=== PATIENT | female | born 1945 | race Caucasian/White ===

== ENCOUNTER 2020-01-02 08:21 | Outpatient (REF) | payer MEDICARE, SELFPAY ==
[2020-01-02 11:47] LABS: Alanine Aminotransferase 14 U/L (0-31); Albumin Level 4.1 g/dL (3.5-5.0); Alkaline Phosphatase 74 U/L (39-117); Anion Gap 13 (12-20); Aspartate Amino Transferase 12 U/L (5-31); Bilirubin Total 0.9 mg/dL (0.0-1.0); Blood Urea Nitrogen 21 mg/dL (9-16); Calcium 9.1 mg/dL (8.4-10.2); Carbon Dioxide 28 mmol/L (22-29); Chloride 106 mmol/L (96-108); Cholesterol 127 mg/dL; Estimated Glomerular Filt Rate > 60; Glucose Fasting 150 mg/dL (60-99); HDL Cholesterol 43 mg/dL; LDL Cholesterol Calculated 56 mg/dl; Potassium 3.9 mmol/l (3.3-5.1); Sodium 143 mmol/L (135-145); Total Protein 6.5 g/dL (6.5-8.0); Triglycerides 141 mg/dL
[2020-01-02 11:50] LABS: Estimated Average Glucose 163 mg/dL; Hemoglobin A1c % 7.3 %
[2020-01-02 13:39] LABS: Creatinine Urine 91.03 mg/dL
== END 2020-01-02 08:22 | disposition home or self-care (01) ==
LOC: HO.MANLR 08:21
PROVIDERS: PCP Internal Medicine; Visit Provider Internal Medicine
DX: E11.9 Type 2 diabetes mellitus without complications (principal); I10 Essential (primary) hypertension
CPT/HCPCS: 80053; 80061; 82043; 83036

== ENCOUNTER 2020-04-02 11:44 | Outpatient (REF) | payer MEDICARE, SELFPAY ==
[2020-04-02 13:54] LABS: Estimated Average Glucose 126 mg/dL
== END 2020-04-02 11:45 | disposition home or self-care (01) ==
LOC: HO.MANLR 11:44
PROVIDERS: PCP Internal Medicine; Visit Provider Internal Medicine
DX: E11.9 Type 2 diabetes mellitus without complications (principal); I10 Essential (primary) hypertension
CPT/HCPCS: 36415; 83036

== ENCOUNTER 2020-07-13 09:18 | Outpatient (REF) | payer MEDICARE, SELFPAY ==
[2020-07-13 11:51] LABS: Estimated Average Glucose 137 mg/dL; Hemoglobin A1c % 6.4 %
[2020-07-13 12:01] LABS: Alanine Aminotransferase 20 U/L (0-31); Alkaline Phosphatase 72 U/L (39-117); Anion Gap 16 (12-20); Aspartate Amino Transferase 20 U/L (5-31); Bilirubin Total 1.2 mg/dL (0.0-1.0); Blood Urea Nitrogen 30 mg/dL (9-16); Calcium 9.3 mg/dL (8.4-10.2); Carbon Dioxide 27 mmol/L (22-29); Chloride 108 mmol/L (96-108); Cholesterol 111 mg/dL; Estimated Glomerular Filt Rate 25; Glucose Fasting 130 mg/dL (60-99); HDL Cholesterol 38 mg/dL; LDL Cholesterol Calculated 42 mg/dl; Potassium 3.7 mmol/L (3.3-5.1); Sodium 147 mmol/L (135-145); Total Protein 6.7 g/dL (6.5-8.0); Triglycerides 155 mg/dL
[2020-07-13 19:34] LABS: Microalbum/Creatinine Ratio Ur 154.6 ug/mg cr
== END 2020-07-13 09:19 | disposition home or self-care (01) ==
LOC: HO.MANLDS 09:18
PROVIDERS: PCP Internal Medicine; Visit Provider Internal Medicine
DX: E11.9 Type 2 diabetes mellitus without complications (principal); I10 Essential (primary) hypertension
CPT/HCPCS: 36415; 80053; 80061; 82043; 83036

== ENCOUNTER 2020-07-27 08:31 | Outpatient (REF) | payer MEDICARE, SELFPAY ==
[2020-07-27 11:06] LABS: Estimated Average Glucose 137 mg/dL; Hemoglobin A1c % 6.4 %
== END 2020-07-27 08:32 | disposition home or self-care (01) ==
LOC: HO.MANLDS 08:31
PROVIDERS: PCP Internal Medicine; Visit Provider Internal Medicine
DX: E11.9 Type 2 diabetes mellitus without complications (principal); I10 Essential (primary) hypertension
CPT/HCPCS: 36415; 83036

== ENCOUNTER 2020-08-01 14:27 | Outpatient (REF) | payer MEDICARE, SELFPAY ==
[2020-08-01 18:10] LABS: Anion Gap 16 (12-20); Blood Urea Nitrogen 23 mg/dL (9-16); Calcium 9.2 mg/dL (8.4-10.2); Carbon Dioxide 21 mmol/L (22-29); Chloride 111 mmol/L (96-108); Estimated Glomerular Filt Rate 29; Glucose Random 133 mg/dL (60-115); Potassium 3.8 mmol/L (3.3-5.1); Sodium 144 mmol/L (135-145)
== END 2020-08-01 14:28 | disposition home or self-care (01) ==
LOC: HO.MANLDS 14:27
PROVIDERS: PCP Internal Medicine; Visit Provider Internal Medicine
DX: N28.9 Disorder of kidney and ureter, unspecified (principal)
CPT/HCPCS: 36415; 80048

== ENCOUNTER 2020-09-18 10:38 | Outpatient (REF) | payer MEDICARE, SELFPAY | END 2020-09-18 10:39 | disposition home or self-care (01) | LOC: HO.MANLDS 10:38 | PROVIDERS: PCP Internal Medicine; Visit Provider Physician Assistant | DX: R30.9 Painful micturition, unspecified (principal) | CPT/HCPCS: 87086 ==

== ENCOUNTER 2020-10-23 09:35 | Outpatient (REF) | payer MEDICARE, SELFPAY ==
[2020-10-23 11:34] LABS: Estimated Average Glucose 146 mg/dL; Hemoglobin A1c % 6.7 %
== END 2020-10-23 09:36 | disposition home or self-care (01) ==
LOC: HO.MANLDS 09:35
PROVIDERS: PCP Internal Medicine; Visit Provider Internal Medicine
DX: E11.9 Type 2 diabetes mellitus without complications (principal); I10 Essential (primary) hypertension
CPT/HCPCS: 36415; 83036

== ENCOUNTER 2021-01-22 09:32 | Outpatient (REF) | payer MEDICARE, SELFPAY ==
[2021-01-22 11:15] LABS: Estimated Average Glucose 131 mg/dL; Hemoglobin A1c % 6.2 %
[2021-01-22 12:04] LABS: Alanine Aminotransferase 50 U/L (0-31); Albumin Level 3.5 g/dL (3.5-5.0); Alkaline Phosphatase 144 U/L (39-117); Anion Gap 13 (12-20); Aspartate Amino Transferase 59 U/L (5-31); Bilirubin Total 0.9 mg/dL (0.0-1.0); Blood Urea Nitrogen 17 mg/dL (9-16); Calcium 9.3 mg/dL (8.4-10.2); Carbon Dioxide 28 mmol/L (22-29); Chloride 108 mmol/L (96-108); Cholesterol 102 mg/dL; Estimated Glomerular Filt Rate 39; Glucose Fasting 119 mg/dL (60-99); HDL Cholesterol 31 mg/dL; LDL Cholesterol Calculated 46 mg/dl; Potassium 3.4 mmol/L (3.3-5.1); Sodium 146 mmol/L (135-145); Total Protein 6.3 g/dL (6.5-8.0); Triglycerides 125 mg/dL
== END 2021-01-22 09:33 | disposition home or self-care (01) ==
LOC: HO.MANLDS 09:32
PROVIDERS: PCP Internal Medicine; Visit Provider Internal Medicine
DX: E11.65 Type 2 diabetes mellitus with hyperglycemia (principal)
CPT/HCPCS: 36415; 80053; 80061; 82043; 83036

== ENCOUNTER 2021-04-16 09:08 | Outpatient (REF) | payer MEDICARE, SELFPAY ==
[2021-04-16 12:25] LABS: Estimated Average Glucose 114 mg/dL; Hemoglobin A1c % 5.6 %
== END 2021-04-16 09:09 | disposition home or self-care (01) ==
LOC: HO.MANLDS 09:08
PROVIDERS: PCP Internal Medicine; Visit Provider Internal Medicine
DX: E11.65 Type 2 diabetes mellitus with hyperglycemia (principal)
CPT/HCPCS: 36415; 83036

== ENCOUNTER 2021-06-24 08:10 | Outpatient (REF) | payer MEDICARE, SELFPAY ==
[2021-06-24 11:21] LABS: Uric Acid 3.2 mg/dL (2.4-5.7)
== END 2021-06-24 08:11 | disposition home or self-care (01) ==
LOC: HO.MANLDS 08:10
PROVIDERS: PCP Internal Medicine; Visit Provider Physician Assistant
DX: M25.562 Pain in left knee (principal)
CPT/HCPCS: 36415; 84550

== ENCOUNTER 2021-07-16 10:29 | Outpatient (REF) | payer MEDICARE, SELFPAY ==
[2021-07-16 14:01] LABS: Estimated Average Glucose 108 mg/dL; Hemoglobin A1c % 5.4 %
== END 2021-07-16 10:30 | disposition home or self-care (01) ==
LOC: HO.MANLDS 10:29
PROVIDERS: Visit Provider Internal Medicine
DX: E11.65 Type 2 diabetes mellitus with hyperglycemia (principal)
CPT/HCPCS: 36415; 83036

== ENCOUNTER 2021-09-20 12:04 | Outpatient (REF) | payer MEDICARE, SELFPAY ==
[2021-09-20 13:09] LABS: Appearance Urine CLOUDY; Color Urine YELLOW; Glucose Urine UA NEG (NEG); Leukocyte Esterase Urine 3+ (NEG); Nitrite Urine NEG (NEG); Urine Blood 2+ (NEG); Urine Ketones NEG (NEG); Urine Protein TRACE MG/DL (NEG-TRACE)
[2021-09-20 13:26] LABS: Bacteria Urine 1+ /LPF; Squamous Epithelial Cell Urine 1+ /LPF; WBC Urine TNTC /HPF (0-4)
== END 2021-09-20 12:05 | disposition home or self-care (01) ==
LOC: HO.MANLDS 12:04
PROVIDERS: Visit Provider Physician Assistant
DX: R30.0 Dysuria (principal)
CPT/HCPCS: 81001; 81003; 87086

== ENCOUNTER 2021-10-28 10:06 | Outpatient (REF) | payer MEDICARE, SELFPAY ==
[2021-10-28 12:00] LABS: Estimated Average Glucose 114 mg/dL; Hemoglobin A1c % 5.6 %
[2021-10-28 12:18] LABS: Alanine Aminotransferase 40 U/L (0-31); Alkaline Phosphatase 109 U/L (39-117); Anion Gap 18 (12-20); Aspartate Amino Transferase 35 U/L (5-31); Bilirubin Total 0.8 mg/dL (0.0-1.0); Blood Urea Nitrogen 18 mg/dL (9-16); Calcium 9.7 mg/dL (8.4-10.2); Carbon Dioxide 23 mmol/L (22-29); Chloride 106 mmol/L (96-108); Cholesterol 121 mg/dL; Estimated Glomerular Filt Rate 34; Glucose Random 100 mg/dL (60-115); HDL Cholesterol 49 mg/dL; LDL Cholesterol Calculated 53 mg/dl; Potassium 4.5 mmol/L (3.3-5.1); Sodium 142 mmol/L (135-145); Total Protein 7.1 g/dL (6.5-8.0); Triglycerides 95 mg/dL
== END 2021-10-28 10:07 | disposition home or self-care (01) ==
LOC: HO.MANLDS 10:06
PROVIDERS: Visit Provider Internal Medicine
DX: E11.65 Type 2 diabetes mellitus with hyperglycemia (principal)
CPT/HCPCS: 36415; 80053; 80061; 83036

== ENCOUNTER 2021-11-05 11:15 | Outpatient (REF) | payer MEDICARE, SELFPAY ==
[2021-11-05 14:55] LABS: Creatinine Urine 96.83 mg/dL; Microalbum/Creatinine Ratio Ur 48.5 ug/mg cr
== END 2021-11-05 11:16 | disposition home or self-care (01) ==
LOC: HO.MANLDS 11:15
PROVIDERS: Visit Provider Internal Medicine
DX: E11.65 Type 2 diabetes mellitus with hyperglycemia (principal)
CPT/HCPCS: 82043

== ENCOUNTER 2021-11-12 14:58 | Outpatient (REF) | payer MEDICARE, SELFPAY ==
[2021-11-12 18:21] LABS: Creatinine Urine 13.84 mg/dL; Microalbum/Creatinine Ratio Ur 144.5 ug/mg cr
== END 2021-11-12 14:59 | disposition home or self-care (01) ==
LOC: HO.MANLDS 14:58
PROVIDERS: Visit Provider Physician Assistant
DX: E11.65 Type 2 diabetes mellitus with hyperglycemia (principal)
CPT/HCPCS: 82043

== ENCOUNTER 2022-01-21 09:37 | Outpatient (REF) | payer MEDICARE, SELFPAY ==
[2022-01-21 11:31] LABS: Estimated Average Glucose 114 mg/dL; Hemoglobin A1c % 5.6 %
[2022-01-21 13:22] LABS: Alanine Aminotransferase 18 U/L (0-31); Alkaline Phosphatase 115 U/L (39-117); Anion Gap 15 (12-20); Aspartate Amino Transferase 25 U/L (5-31); Bilirubin Total 1.2 mg/dL (0.0-1.0); Blood Urea Nitrogen 26 mg/dL (9-16); Calcium 9.5 mg/dL (8.4-10.2); Carbon Dioxide 26 mmol/L (22-29); Chloride 109 mmol/L (96-108); Cholesterol 119 mg/dL; Estimated Glomerular Filt Rate 40; Glucose Random 103 mg/dL (60-115); HDL Cholesterol 44 mg/dL; LDL Cholesterol Calculated 49 mg/dl; Potassium 4.3 mmol/L (3.3-5.1); Sodium 146 mmol/L (135-145); Total Protein 6.5 g/dL (6.5-8.0); Triglycerides 130 mg/dL
== END 2022-01-21 09:38 | disposition home or self-care (01) ==
LOC: HO.MANLDS 09:37
PROVIDERS: Visit Provider Internal Medicine
DX: E11.65 Type 2 diabetes mellitus with hyperglycemia (principal)
CPT/HCPCS: 36415; 80053; 80061; 83036

== ENCOUNTER 2022-04-29 09:05 | Outpatient (REF) | payer MEDICARE, SELFPAY ==
[2022-04-29 11:56] LABS: Estimated Average Glucose 120 mg/dL; Hemoglobin A1c % 5.8 %
== END 2022-04-29 09:06 | disposition home or self-care (01) ==
LOC: HO.MANLDS 09:05
PROVIDERS: Visit Provider Internal Medicine
DX: E11.65 Type 2 diabetes mellitus with hyperglycemia (principal)
CPT/HCPCS: 36415; 83036

== ENCOUNTER 2022-08-22 09:34 | Outpatient (REF) | payer MEDICARE, SELFPAY ==
[2022-08-22 13:21] LABS: MANUAL DIFF FLAG NO
[2022-08-22 13:40] LABS: Basophils Percent Auto 0.4 % (0-2); Eosinophils Absolute Auto 0.2 X10*3/uL (0.0-0.4); Eosinophils Percent Auto 3.3 % (0-4); Hematocrit 45.6 % (37.0-47.0); Hemoglobin 14.6 g/dl (12.0-16.0); Imm Gran Abs Auto 0.01 X10*3/uL (0.00-0.03); Imm Gran Pct Auto 0.2 % (0.0-0.4); Lymphocytes Percent Auto 19.3 % (20-40); Mean Corpuscular Hemoglobin 30.4 pg (27.0-33.0); Mean Corpuscular Volume 94.8 fL (80.0-98.0); Mean Platelet Volume 10.6 fL (9.4-12.3); Monocytes Absolute Auto 0.6 X10*3/uL (0.1-1.2); Monocytes Percent Auto 10.7 % (2-11); Neutrophils Absolute Auto 3.4 x10*3/uL (2.0-8.3); Neutrophils Percent Auto 66.1 % (45-73); Platelet Count 196 X10*3/uL (160-400); Red Blood Count 4.81 X10*6/uL (4.20-5.50); Red Cell Distribution Width 13.5 % (11.0-16.0); White Blood Count 5.1 X10*3/uL (4.8-10.8)
[2022-08-22 13:50] LABS: Estimated Average Glucose 120 mg/dL; Hemoglobin A1c % 5.8 %
[2022-08-22 14:40] LABS: Alanine Aminotransferase 14 U/L (0-31); Alkaline Phosphatase 92 U/L (39-117); Anion Gap 13 (12-20); Aspartate Amino Transferase 19 U/L (5-31); Bilirubin Total 1.1 mg/dL (0.0-1.0); Blood Urea Nitrogen 27 mg/dL (9-16); Calcium 10.3 mg/dL (8.4-10.2); Carbon Dioxide 28 mmol/L (22-29); Chloride 108 mmol/L (96-108); Cholesterol 191 mg/dL; Estimated Glomerular Filt Rate 39; Glucose Random 122 mg/dL (60-115); HDL Cholesterol 49 mg/dL; LDL Cholesterol Calculated 116 mg/dl; Potassium 4.1 mmol/L (3.3-5.1); Sodium 145 mmol/L (135-145); Total Protein 7.2 g/dL (6.5-8.0); Triglycerides 131 mg/dL
[2022-08-22 15:54] LABS: Creatinine Urine 58.04 mg/dL; Microalbumin Urine < 5.0 mg/L
== END 2022-08-22 09:35 | disposition home or self-care (01) ==
LOC: HO.MANLDS 09:34
PROVIDERS: Visit Provider Physician Assistant
DX: E78.00 Pure hypercholesterolemia, unspecified (principal); R73.01 Impaired fasting glucose
CPT/HCPCS: 36415; 80053; 80061; 82043; 83036; 85025

== ENCOUNTER 2022-11-25 08:40 | Outpatient (REF) | payer MEDICARE, SELFPAY ==
[2022-11-25 13:38] LABS: MANUAL DIFF FLAG NO
[2022-11-25 13:53] LABS: Eosinophils Absolute Auto 0.1 X10*3/uL (0.0-0.4); Eosinophils Percent Auto 3.6 % (0-4); Hematocrit 46.2 % (37.0-47.0); Hemoglobin 15.1 g/dl (12.0-16.0); Imm Gran Abs Auto 0.01 X10*3/uL (0.00-0.03); Imm Gran Pct Auto 0.3 % (0.0-0.4); Lymphocytes Percent Auto 25.8 % (20-40); Mean Corpuscular HGB Conc 32.7 g/dl (31.0-35.0); Mean Corpuscular Hemoglobin 30.6 pg (27.0-33.0); Mean Corpuscular Volume 93.5 fL (80.0-98.0); Mean Platelet Volume 10.2 fL (9.4-12.3); Monocytes Absolute Auto 0.5 X10*3/uL (0.1-1.2); Neutrophils Absolute Auto 2.3 x10*3/uL (2.0-8.3); Neutrophils Percent Auto 57.3 % (45-73); Platelet Count 194 X10*3/uL (160-400); Red Blood Count 4.94 X10*6/uL (4.20-5.50); Red Cell Distribution Width 13.8 % (11.0-16.0); White Blood Count 3.9 X10*3/uL (4.8-10.8)
[2022-11-25 14:00] LABS: Estimated Average Glucose 114 mg/dL; Hemoglobin A1c % 5.6 % (<6.0)
[2022-11-25 14:29] LABS: Alanine Aminotransferase 15 U/L (0-31); Albumin Level 4.1 g/dL (3.5-5.0); Alkaline Phosphatase 87 U/L (39-117); Anion Gap 17 (12-20); Aspartate Amino Transferase 21 U/L (5-31); Bilirubin Total 1.3 mg/dL (0.0-1.0); Blood Urea Nitrogen 21 mg/dL (9-16); Carbon Dioxide 26 mmol/L (22-29); Chloride 108 mmol/L (96-108); Cholesterol 197 mg/dL (<200); Estimated Glomerular Filt Rate 39; Glucose Random 103 mg/dL (60-115); HDL Cholesterol 50 mg/dL (>40); LDL Cholesterol Calculated 119 mg/dL (<100); Potassium 4.2 mmol/L (3.3-5.1); Sodium 147 mmol/L (135-145); Total Protein 7.4 g/dL (6.5-8.0); Triglycerides 140 mg/dL (<150)
== END 2022-11-25 08:41 | disposition home or self-care (01) ==
LOC: HO.MANLDS 08:40
PROVIDERS: Visit Provider Physician Assistant
DX: R73.01 Impaired fasting glucose (principal); E78.00 Pure hypercholesterolemia, unspecified
CPT/HCPCS: 36415; 80053; 80061; 83036; 85025

== ENCOUNTER 2023-02-10 08:23 | Outpatient (REF) | payer MEDICARE, SELFPAY ==
[2023-02-10 13:22] LABS: MANUAL DIFF FLAG NO
[2023-02-10 13:31] LABS: Basophils Percent Auto 0.7 % (0-2); Eosinophils Absolute Auto 0.1 X10*3/uL (0.0-0.4); Eosinophils Percent Auto 3.4 % (0-4); Hematocrit 46.5 % (37.0-47.0); Imm Gran Abs Auto 0.02 X10*3/uL (0.00-0.03); Imm Gran Pct Auto 0.5 % (0.0-0.4); Lymphocytes Absolute Auto 1.2 X10*3/uL (1.2-4.9); Lymphocytes Percent Auto 29.5 % (20-40); Mean Corpuscular HGB Conc 32.3 g/dl (31.0-35.0); Mean Corpuscular Hemoglobin 29.8 pg (27.0-33.0); Mean Corpuscular Volume 92.4 fL (80.0-98.0); Mean Platelet Volume 10.3 fL (9.4-12.3); Monocytes Absolute Auto 0.5 X10*3/uL (0.1-1.2); Monocytes Percent Auto 12.8 % (2-11); Neutrophils Absolute Auto 2.2 x10*3/uL (2.0-8.3); Neutrophils Percent Auto 53.1 % (45-73); Platelet Count 191 X10*3/uL (160-400); Red Blood Count 5.03 X10*6/uL (4.20-5.50); Red Cell Distribution Width 13.2 % (11.0-16.0); White Blood Count 4.1 X10*3/uL (4.8-10.8)
[2023-02-10 13:54] LABS: Alanine Aminotransferase 11 U/L (0-31); Albumin Level 3.8 g/dL (3.5-5.0); Alkaline Phosphatase 77 U/L (39-117); Anion Gap 13 (12-20); Aspartate Amino Transferase 18 U/L (5-31); Bilirubin Total 1.1 mg/dL (0.0-1.0); Blood Urea Nitrogen 19 mg/dL (9-16); Calcium 9.6 mg/dL (8.4-10.2); Carbon Dioxide 27 mmol/L (22-29); Chloride 109 mmol/L (96-108); Cholesterol 174 mg/dL (<200); Estimated Glomerular Filt Rate 39; Glucose Random 115 mg/dL (60-115); HDL Cholesterol 43 mg/dL (>40); LDL Cholesterol Calculated 90 mg/dL (<100); Potassium 4.1 mmol/L (3.3-5.1); Sodium 145 mmol/L (135-145); Total Protein 6.8 g/dL (6.5-8.0); Triglycerides 206 mg/dL (<150)
[2023-02-10 13:59] LABS: Estimated Average Glucose 120 mg/dL; Hemoglobin A1c % 5.8 % (<6.0)
[2023-02-10 14:30] LABS: Creatinine Urine 87.36 mg/dL; Microalbum/Creatinine Ratio Ur 9.1 ug/mg cr (<30)
== END 2023-02-10 08:24 | disposition home or self-care (01) ==
LOC: HO.MANLDS 08:23
PROVIDERS: Visit Provider Physician Assistant
DX: E78.00 Pure hypercholesterolemia, unspecified (principal); R73.01 Impaired fasting glucose
CPT/HCPCS: 36415; 80053; 80061; 82043; 82570; 83036; 85025

== ENCOUNTER 2023-05-08 08:15 | Outpatient (REF) | payer MEDICARE, SELFPAY ==
[2023-05-08 13:17] LABS: MANUAL DIFF FLAG NO
[2023-05-08 13:32] LABS: Estimated Average Glucose 123 mg/dL; Hemoglobin A1c % 5.9 % (<6.0)
[2023-05-08 13:47] LABS: Basophils Percent Auto 0.4 % (0-2); Eosinophils Absolute Auto 0.2 X10*3/uL (0.0-0.4); Eosinophils Percent Auto 3.9 % (0-4); Hematocrit 47.1 % (37.0-47.0); Hemoglobin 15.4 g/dl (12.0-16.0); Imm Gran Abs Auto 0.01 X10*3/uL (0.00-0.03); Imm Gran Pct Auto 0.2 % (0.0-0.4); Lymphocytes Absolute Auto 1.3 X10*3/uL (1.2-4.9); Lymphocytes Percent Auto 29.4 % (20-40); Mean Corpuscular HGB Conc 32.7 g/dl (31.0-35.0); Mean Corpuscular Hemoglobin 30.4 pg (27.0-33.0); Mean Corpuscular Volume 92.9 fL (80.0-98.0); Mean Platelet Volume 10.2 fL (9.4-12.3); Monocytes Absolute Auto 0.5 X10*3/uL (0.1-1.2); Monocytes Percent Auto 11.2 % (2-11); Neutrophils Absolute Auto 2.5 x10*3/uL (2.0-8.3); Neutrophils Percent Auto 54.9 % (45-73); Platelet Count 208 X10*3/uL (160-400); Red Blood Count 5.07 X10*6/uL (4.20-5.50); Red Cell Distribution Width 13.5 % (11.0-16.0); White Blood Count 4.6 X10*3/uL (4.8-10.8)
[2023-05-08 14:27] LABS: Alanine Aminotransferase 11 U/L (0-31); Albumin Level 4.1 g/dL (3.5-5.0); Alkaline Phosphatase 97 U/L (39-117); Anion Gap 14 (12-20); Aspartate Amino Transferase 17 U/L (5-31); Bilirubin Total 0.9 mg/dL (0.0-1.0); Blood Urea Nitrogen 30 mg/dL (9-16); Calcium 9.9 mg/dL (8.4-10.2); Carbon Dioxide 28 mmol/L (22-29); Chloride 107 mmol/L (96-108); Estimated Glomerular Filt Rate 34; Glucose Random 123 mg/dL (60-115); Potassium 4.5 mmol/L (3.3-5.1); Sodium 144 mmol/L (135-145); Total Protein 7.3 g/dL (6.5-8.0)
== END 2023-05-08 08:16 | disposition home or self-care (01) ==
LOC: HO.MANLDS 08:15
PROVIDERS: Visit Provider Physician Assistant
DX: E78.00 Pure hypercholesterolemia, unspecified (principal); R73.01 Impaired fasting glucose
CPT/HCPCS: 36415; 80053; 83036; 85025

== ENCOUNTER 2023-05-18 07:58 | Outpatient (REF) | payer MEDICARE, SELFPAY ==
[2023-05-18 14:24] LABS: Alanine Aminotransferase 11 U/L (0-31); Alkaline Phosphatase 97 U/L (39-117); Anion Gap 13 (12-20); Aspartate Amino Transferase 17 U/L (5-31); Bilirubin Total 0.9 mg/dL (0.0-1.0); Blood Urea Nitrogen 27 mg/dL (9-16); Calcium 9.8 mg/dL (8.4-10.2); Carbon Dioxide 30 mmol/L (22-29); Chloride 105 mmol/L (96-108); Estimated Glomerular Filt Rate 35; Glucose Random 121 mg/dL (60-115); Potassium 4.2 mmol/L (3.3-5.1); Sodium 144 mmol/L (135-145); Total Protein 7.5 g/dL (6.5-8.0)
== END 2023-05-18 07:59 | disposition home or self-care (01) ==
LOC: HO.MANLDS 07:58
PROVIDERS: Visit Provider Physician Assistant
DX: N17.9 Acute kidney failure, unspecified (principal)
CPT/HCPCS: 36415; 80053

== ENCOUNTER 2023-08-25 09:06 | Outpatient (REF) | payer MEDICARE, SELFPAY ==
[2023-08-25 13:01] LABS: MANUAL DIFF FLAG NO
[2023-08-25 13:08] LABS: Basophils Percent Auto 0.4 % (0-2); Eosinophils Absolute Auto 0.1 X10*3/uL (0.0-0.4); Eosinophils Percent Auto 2.7 % (0-4); Hematocrit 46.4 % (37.0-47.0); Hemoglobin 15.3 g/dl (12.0-16.0); Imm Gran Abs Auto 0.02 X10*3/uL (0.00-0.03); Imm Gran Pct Auto 0.4 % (0.0-0.4); Lymphocytes Percent Auto 21.5 % (20-40); Mean Corpuscular Hemoglobin 30.4 pg (27.0-33.0); Mean Corpuscular Volume 92.1 fL (80.0-98.0); Mean Platelet Volume 10.4 fL (9.4-12.3); Monocytes Absolute Auto 0.5 X10*3/uL (0.1-1.2); Neutrophils Absolute Auto 3.1 x10*3/uL (2.0-8.3); Platelet Count 213 X10*3/uL (160-400); Red Blood Count 5.04 X10*6/uL (4.20-5.50); Red Cell Distribution Width 13.9 % (11.0-16.0); White Blood Count 4.8 X10*3/uL (4.8-10.8)
[2023-08-25 13:31] LABS: Estimated Average Glucose 123 mg/dL; Hemoglobin A1c % 5.9 % (<6.0)
[2023-08-25 13:38] LABS: Alanine Aminotransferase 12 U/L (0-31); Albumin Level 4.1 g/dL (3.5-5.0); Alkaline Phosphatase 94 U/L (39-117); Anion Gap 16 (12-20); Aspartate Amino Transferase 18 U/L (5-31); Bilirubin Total 1.2 mg/dL (0.0-1.0); Blood Urea Nitrogen 30 mg/dL (9-16); Calcium 10.2 mg/dL (8.4-10.2); Carbon Dioxide 26 mmol/L (22-29); Chloride 108 mmol/L (96-108); Cholesterol 187 mg/dL (<200); Estimated Glomerular Filt Rate 37; Glucose Random 128 mg/dL (60-115); HDL Cholesterol 43 mg/dL (>40); LDL Cholesterol Calculated 106 mg/dL (<100); Potassium 4.5 mmol/L (3.3-5.1); Sodium 145 mmol/L (135-145); Total Protein 7.4 g/dL (6.5-8.0); Triglycerides 190 mg/dL (<150)
== END 2023-08-25 09:07 | disposition home or self-care (01) ==
LOC: HO.MANLDS 09:06
PROVIDERS: Visit Provider Physician Assistant
DX: R73.01 Impaired fasting glucose (principal); E78.00 Pure hypercholesterolemia, unspecified
CPT/HCPCS: 36415; 80053; 80061; 83036; 85025

== ENCOUNTER 2023-12-01 07:57 | Outpatient (REF) | payer MEDICARE, SELFPAY ==
[2023-12-01 13:11] LABS: MANUAL DIFF FLAG NO
[2023-12-01 13:32] LABS: Basophils Percent Auto 0.6 % (0-2); Eosinophils Absolute Auto 0.2 X10*3/uL (0.0-0.4); Eosinophils Percent Auto 3.7 % (0-4); Hematocrit 46.1 % (37.0-47.0); Hemoglobin 15.1 g/dl (12.0-16.0); Imm Gran Abs Auto 0.02 X10*3/uL (0.00-0.03); Imm Gran Pct Auto 0.4 % (0.0-0.4); Lymphocytes Absolute Auto 1.5 X10*3/uL (1.2-4.9); Mean Corpuscular HGB Conc 32.8 g/dl (31.0-35.0); Mean Corpuscular Hemoglobin 30.8 pg (27.0-33.0); Mean Corpuscular Volume 94.1 fL (80.0-98.0); Mean Platelet Volume 10.3 fL (9.4-12.3); Monocytes Absolute Auto 0.6 X10*3/uL (0.1-1.2); Monocytes Percent Auto 11.7 % (2-11); Neutrophils Absolute Auto 2.6 x10*3/uL (2.0-8.3); Neutrophils Percent Auto 53.6 % (45-73); Platelet Count 198 X10*3/uL (160-400); Red Cell Distribution Width 13.4 % (11.0-16.0); White Blood Count 4.9 X10*3/uL (4.8-10.8)
[2023-12-01 13:51] LABS: Estimated Average Glucose 128 mg/dL; Hemoglobin A1C 246.7287 umol/L; Hemoglobin A1c % 6.1 % (<6.0); Total Hemoglobin (HGBA1C) 5771.8606 umol/L
[2023-12-01 19:30] LABS: Alanine Aminotransferase 15 U/L (0-31); Albumin Level 4.1 g/dL (3.5-5.0); Alkaline Phosphatase 84 U/L (39-117); Anion Gap 15 (12-20); Aspartate Amino Transferase 26 U/L (5-31); Bilirubin Total 0.9 mg/dL (0.0-1.0); Blood Urea Nitrogen 28 mg/dL (9-16); Calcium 10.3 mg/dL (8.4-10.2); Carbon Dioxide 26 mmol/L (22-29); Chloride 108 mmol/L (96-108); Cholesterol 164 mg/dL (<200); Estimated Glomerular Filt Rate 31; Glucose Random 129 mg/dL (60-115); HDL Cholesterol 39 mg/dL (>40); LDL Cholesterol Calculated 93 mg/dL (<100); Potassium 4.6 mmol/L (3.3-5.1); Sodium 144 mmol/L (135-145); Total Protein 7.1 g/dL (6.5-8.0); Triglycerides 163 mg/dL (<150)
== END 2023-12-01 07:58 | disposition home or self-care (01) ==
LOC: HO.MANLDS 07:57
PROVIDERS: Visit Provider Physician Assistant
DX: R73.01 Impaired fasting glucose (principal); E78.00 Pure hypercholesterolemia, unspecified
CPT/HCPCS: 36415; 80053; 80061; 83036; 85025

== ENCOUNTER 2024-04-04 08:46 | Outpatient (REF) | payer MEDICARE, SELFPAY ==
--- OUTSIDE RECORDS SUMMARY | 2024-04-04 09:16 | XMS_ITS | Encounter Summary ---
Author Organization [facility] Address [address] [place] [address] Phone Care Team Providers Care Timber Mill Worker Name Role Phone Nasir Nevarez DO Primary Care Provider Encounter Details Date Type Department Care Team (Late Contact Info) Description 10/07/2023 Documentation Only [facility] [address] [place] [address] Roberta Bull [address] [place] [phone] Social History Tobacco Use Types Packs/Day Years Used Date Smoking Tobacco: Former Cigarettes 1986 Alcohol Use Standard Drinks/Week Comments Yes 1 (1 standard drink = 0.6 oz pur e alcohol) Comments Unknown Sex and Gender Information Value Date Recorded Sex Assigned at Not on file Legal Sex Female 5:04 PM EDT Gender Identity Female 09/26/2020 2:14 PM EDT Sexual Orientation Not on file 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 [address] documented as of this encounter Visit Diagnoses Not on filedocumented in this encounter Care Teams Timber Mill Worker Relationship Specialty Start Date End Date Nasir Nevarez DO [address] [place] [address] PCP - General Internal Medicine 08/06/20 documented as of this encounter
--- OUTSIDE RECORDS SUMMARY | 2024-04-04 09:16 | XMS_ITS | Encounter Summary ---
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 [address] documented as of this encounter Visit Diagnoses Not on filedocumented in this encounter Care Teams Junior Underwriter Relationship Specialty Start Date End Date Nasir Nevarez DO [address] [place] [address] PCP - General Internal Medicine 08/06/20 documented as of this encounter
--- OUTSIDE RECORDS SUMMARY | 2024-04-04 09:16 | XMS_ITS | Encounter Summary ---
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 [address] documented as of this encounter Visit Diagnoses Not on filedocumented in this encounter Care Teams Roads Superintendent Relationship Specialty Start Date End Date Nasir Nevarez DO [address] [place] [address] PCP - General Internal Medicine 08/06/20 documented as of this encounter
--- OUTSIDE RECORDS SUMMARY | 2024-04-04 09:16 | XMS_ITS | Encounter Summary ---
Author Organization [facility] [place], Address [address] [place] [address] Phone Care Team Providers Care Erp Business Analyst Name Role Phone Nasir Nevarez DO Primary Care Provider [phone] Encounter Details Date Type Department Care Team (Late Contact Info) Description 09/30/2022 Documentation Only [facility] [address] [place] [address] Mohit Kennedy MD [address] [place] [address] 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 [address] documented as of this encounter Visit Diagnoses Not on filedocumented in this encounter Care Teams Erp Business Analyst Relationship Specialty Start Date End Date Nasir Nevarez DO [address] [facility] [place] [address] PCP - General Internal Medicine 08/06/20 documented as of this encounter
--- OUTSIDE RECORDS SUMMARY | 2024-04-04 09:16 | XMS_ITS | Encounter Summary ---
Author Organization [facility] [place], Address [address] [place] [address] Phone Care Team Providers Care Quality Control Systems Manager Name Role Phone Nasir Nevarez DO Primary Care Provider [phone] Encounter Details Date Type Department Care Team (Late Contact Info) Description 09/29/2022 Documentation Only [facility] [address] [place] [address] Mohit Kennedy MD [address] [place] [address] 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 [address] documented as of this encounter Visit Diagnoses Not on filedocumented in this encounter Care Teams Quality Control Systems Manager Relationship Specialty Start Date End Date Nasir Nevarez DO [address] [facility] [place] [address] PCP - General Internal Medicine 08/06/20 documented as of this encounter
--- OUTSIDE RECORDS SUMMARY | 2024-04-04 09:16 | XMS_ITS | Encounter Summary ---
Author Organization [facility] [place], Address [address] [place] [address] Phone Care Team Providers Care Geek Squad Autotech Name Role Phone Nasir Nevarez DO Primary Care Provider [phone] Encounter Details Date Type Department Care Team (Late Contact Info) Description 09/29/2022 Documentation Only [facility] [address] [place] [address] Mohit Kennedy MD [address] [place] [address] 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 [address] documented as of this encounter Visit Diagnoses Not on filedocumented in this encounter Care Teams Geek Squad Autotech Relationship Specialty Start Date End Date Nasir Nevarez DO [address] [facility] [place] [address] PCP - General Internal Medicine 08/06/20 documented as of this encounter
--- OUTSIDE RECORDS SUMMARY | 2024-04-04 09:16 | XMS_ITS | Encounter Summary ---
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 [address] documented as of this encounter Visit Diagnoses Not on filedocumented in this encounter Care Teams Halftone Operator Relationship Specialty Start Date End Date Nasir Nevarez DO [address] [place] [address] PCP - General Internal Medicine 08/06/20 documented as of this encounter
--- OUTSIDE RECORDS SUMMARY | 2024-04-04 09:17 | XMS_ITS | Clinical Summary ---
Author Organization [facility] [place], Address [address] [place] [address] Phone Care Team Providers Care Equip Tech Name Role Phone Nasir Nevarez DO Primary Care Provider [phone] Allergies Active Allergy Reactions Criticality Noted Date Comments Colchicine Diarrhea,Nausea And Vomiting Medium 07/26/2021 Prednisone Other (see comments) 09/29/2019 Other reaction(s): Flushing Medications allopurinol (ZYLOPRIM) 100 MG tablet Take 100 mg by mouth daily Active ascorbic acid (VITAMIN C) 500 MG tablet 500 mg Active furosemide (LASIX) 40 MG tablet Take 40 mg by mouth daily 1 Active omeprazole (PriLOSEC) [address] capsule omeprazole 20 mg capsule,delayed release Active rosuvastatin (CRESTOR) 10 MG tablet Take 10 mg by mouth daily Active cholecalciferol (VITAMIN D-3) 25 MCG (1000 UT) tablet Take 1 tablet by mouth daily Active apixaban (ELIQUIS) 5 MG tablet Take 1 tablet by mouth 2 (two) times a day 1 Active oxybutynin XL (DITROPAN-XL) 10 MG 24 hr tablet oxybutynin chloride ER 10 mg tablet,extended release 24 hr Active amiodarone (PACERONE) 100 MG tablet Take 100 mg by mouth in the morning. 3 Active Active Problems Problem Noted Date Diagnosed Date Stage 3b chronic kidney disease 10/10/2022 Renal disorder due to type 2 diabetes mellitus 0 04/18/2022 Vitamin D deficiency 09/12/2021 Diastolic heart failure 12/27/2020 Stage 3a chronic kidney disease 09/27/2020 Paroxysmal atrial fibrillation 11/06/2017 Hypertensive disorder 2017 Overview (09/20/2020): Last Assessment & Plan: continue with her lisinopril and metoprolol] - above goal, stopping IVF may help cont to monitor Type 2 diabetes mellitus 2017 Overview (09/20/2020): Last Assessment & Plan: - blood sugars improved today cont basal bolus insulin Hypercholesterolemia 2017 Immunizations Name Administration Dates Next Due Influenza (IM) Preservative Free 10/18/2019 Influenza Split High Dose Pr eservative Free IM 10/22/2018,12/10/2015 Influenza Vaccine, Quadrival ent, Adjuvanted 03/06/2021 Influenza, Quadrivalent, Wit h Preservative 03/06/2021,10/18/2019,10/22/2018,11/07 Influenza, Trivalent, Adjuvanted 11/07/2017,11/09 Influenza, Unspecified 11/29/2009 Pfizer SARS-COV-2 11/24/2020,,05/19/2020,05/19,04/28/2020,04/28/2020,04/28/2020 Pneumococcal Conjugate 13-Valent 11/21/2016,11/09 Pneumococcal Polysaccharide 02/15/2018,0 02/15/2018,11/14/2012,11/14 Zoster 10/22/2018, 9,08/16/2018,08/16,08/16/2018,11/10/2011,11/10/2011 Family History Medical History Relation Comments Breast cancer Mother Cancer Mother Relation Status Comments Father Mother Social History Tobacco Use Types Packs/Day Years Used Date Smoking Tobacco: Former Cigarettes 1986 Tobacco Cessation:Counseling Given: Not Answered Alcohol Use Standard Drinks/Week Comments Yes 1 (1 standard drink = 0.6 oz pur e alcohol) Comments Unknown Sex and Gender Information Value Date Recorded Sex Assigned at Not on file Legal Sex Female 5:04 PM EDT Gender Identity Female 09/26/2020 2:14 PM EDT Sexual Orientation Not on file 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 [phone] Health Maintenance Due Date Last Done Comments Hepatitis B Vaccine (1 of 3 - Risk 3-dose series) 2003 Diabetes: Hemoglobin A1C 08/08/2020 Diabetes: Ophthalmology Exam 08/08/2020 Diabetes: Pedal Pulse Checked 08/08/2020 Diabetes: Sensory Foot Exam 08/08/2020 Diabetes: Visual Foot Exam 08/08/2020 Influenza Vaccine (#1) 2023 2, 03/06/2021, 10/18/2019, Additional history exists Pneumococcal Vaccine: 65+ Years Completed 02/15/2018, 02/15/2018, 11/21/2016, Additional history exists Insurance Care Teams Equip Tech Relationship Specialty Start Date End Date Nasir Nevarez DO [address] [facility] [place] [address] PCP - General Internal Medicine 08/06/20
--- OUTSIDE RECORDS SUMMARY | 2024-04-04 09:17 | XMS_ITS | Data Portability ---
Author Organization [facility], Home Service Address [address] [place] [address] Assessment Encounter Date Assessment Date Assessment LastModified by Organization Details LastModified Time 09/02/2023 09/02/2023 [address] [place] [address] (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) MDM MODERATE MUST MEET 2 OUT OF 3 ELEMENTS: PROBLEMS, DATA OR RISK ELEMENT 1: PROBLEMS ADDRESSED 1 OR MORE CHRONIC ILLNESS WITH EXACERBATION OR 2 OR MORE STABLE CHRONIC ILLNESSES OR 1 UNDIAGNOSED NEW PROBLEM OR 1 ACUTE ILLNESS W/SYMPTOMS OR 1 ACUTE COMPLICATED INJURY ELEMENT 2: DATA MUST MEET 1 OF 3 CATEGORIES CATEGORY 1: REVIEW OF PRIOR EXTERNAL NOTES, REVIEW OF RESULTS, ORDERING OF EACH TEST, ASSESSMENT REQUIRING INDEPENDENT HISTORIAN OR CATEGORY 2: INDEPENDENT INTERPRETATION OF TESTS BY ANOTHER PHYSICIAN OR SPECIALIST OR CATEGORY 3: DISCUSSION OF MGT OR TEST INTERPRETATION W/EXTERNAL PHYSICIAN OR SPECIALIST ELEMENT 3: RISK RISK OF COMPLICATIONS AND/OR MORBIDITY OR MORTALITY OF PATIENT MANAGEMENT PROVIDER MUST THOROUGHLY DOCUMENT EACH ELEMENT THAT IS COVERED Not available 09/02/2023 11:47:07 03/09/2024 03/09/2024 [address] [place] [address] (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) MDM MODERATE MUST MEET 2 OUT OF 3 ELEMENTS: PROBLEMS, DATA OR RISK ELEMENT 1: PROBLEMS ADDRESSED 1 OR MORE CHRONIC ILLNESS WITH EXACERBATION OR 2 OR MORE STABLE CHRONIC ILLNESSES OR 1 UNDIAGNOSED NEW PROBLEM OR 1 ACUTE ILLNESS W/SYMPTOMS OR 1 ACUTE COMPLICATED INJURY ELEMENT 2: DATA MUST MEET 1 OF 3 CATEGORIES CATEGORY 1: REVIEW OF PRIOR EXTERNAL NOTES, REVIEW OF RESULTS, ORDERING OF EACH TEST, ASSESSMENT REQUIRING INDEPENDENT HISTORIAN OR CATEGORY 2: INDEPENDENT INTERPRETATION OF TESTS BY ANOTHER PHYSICIAN OR SPECIALIST OR CATEGORY 3: DISCUSSION OF MGT OR TEST INTERPRETATION W/EXTERNAL PHYSICIAN OR SPECIALIST ELEMENT 3: RISK RISK OF COMPLICATIONS AND/OR MORBIDITY OR MORTALITY OF PATIENT MANAGEMENT PROVIDER MUST THOROUGHLY DOCUMENT EACH ELEMENT THAT IS COVERED Not available 03/09/2024 11:48:33 Plan of Treatment Reminders Order Date Submit Date Provider Last Modified By Organization Details Last Modified Time Details Appointments FOLLOW UP 15 2024 11:00A M DR SHARP Not available Not available Not available MEDICARE ANNUAL WELLNESS 2024 11:00A M DR SHARP Not available Not available Not available Lab None recorded. Referral None recorded. Procedures None recorded. Surgeries None recorded. Imaging None recorded. Medication Orders celecoxib 200 mg capsule 2023 [facility]/Pharmacy #[id number], [address] [place], [address], 10/13/2023 10:26:57 clotrimaz ole-betam ethasone 1 %-0.05 % topical cream 2023 024 [facility]/Pharmacy #[id number], [address] [place], [address], 09/02/2023 11:49:27 Patient TargetsNo targets recorded. Patient Instructions Encounter Date Encounter Id Patient Instructions Last Modified By Organization Details Last Modified Time 09/02/2023 [id number] prediabetes: car e instructions Not available 09/02/2023 11:47:09 leg and ankle ed marquis: care instructions Not available 09/02/2023 11:47:09 medicines to mackenzie id with kidney disease: care instructions Not available 09/02/2023 11:47:09 12/04/2023 [id number] medicines to mackenzie id with kidney disease: care instructions Not available 12/04/2023 11:45:05 pulse oximetry* Not available 12/04/2023 11:45:05 03/09/2024 [id number] prediabetes: car e instructions Not available 03/09/2024 11:50:12 medicines to mackenzie id with kidney disease: care instructions Not available 03/09/2024 11:50:12 gastroesophageal reflux disease (GERD): care instructions Not available 03/09/2024 11:50:12 Reason for Referral None Reported. Results Created Date Observation Date Name Description Value Unit Range Abnormal Flag Note LastModifiedBy Organization Detail LastModifiedTime 12/04/1912/04/2023 pulse oxime try* Result 98% Not Available [facility] [address], [place], [address], 11/11/2023 15:28:29 10/26/19 24 10/26/2023 MAMMO , scree hardik, digit al, bilat eral No observ ation record ed. [address], [place], [address], 12/04/2023 11:39:28 Result Notes None recorded. Problems Name Problem SNOMED Code Status Onset Date Resolution Date Notes Provider Name and Address Organization Details Recorded Time Paroxysm al atrial fibrilla tion 671229263 Active 2017 Not Available [facility] 2 13:13:32 Ascendin g cholangi tis 19531263 Active 2019 Not Available [facility] 2 13:13:33 Gastroes ophageal reflux disease 812241841 Active 2020 Not Available [facility] 2 13:13:33 Pain of left knee region 1650968862 48057 Active 2021 MATT FLOOD [address] [place], [address], [facility] [place] [facility] 2 16:01:55 Venous stasis ulcer of leg 797752480 Completed 202105/02/2022 Removal Reason: done Nasir Sharp DO [address] [place], [address], [facility] [place] 3 16:39:24 Venous stasis ulcer of leg 739760355 Completed 202105/02/2022 Nasir Sharp DO [address] [place], [address], [facility] [place] [facility] 3 16:39:02 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 050730172 Active 2021 MATT FLOOD [address] [place], [address], [facility] [place] [facility] 2 16:49:21 Pain in limb 46372034 Active 2021 MATT FLOOD [address] [place] [address], [address], [facility] [place] [facility] 2 16:03:29 Acute meniscal tear, medial 001665360 Active 2021 Nasir Sharp DO [address] [place] [address], [address], [facility] 2 14:05:10 Acute meniscal tear, medial 714538443 Active 2021 Nasir Sharp DO [address] [place] [address], [address], [facility] 2 14:05:39 Acute urinary tract infectio n 839945457 Active 2021 MATT FLOOD [address] [place] [address], [address], [facility] 2 10:44:13 Dysuria 32442018 Active 2021 MATT FLOOD [address] [place] [address], [address], [facility] 2 10:44:19 Ulcer of left lower leg 4765733543 9182738 Completed 202105/02/2022 Nasir Sharp DO [address] [place] [address], [address], [facility] 3 16:39:05 Impacted cerumen in left ear 1995913779 082958 Active 2021 MATT FLOOD [address] [place] [address], [address], [facility] 2 10:59:11 Dry cough 90493162 Active 2021 AMTT FLOOD [address] [place] [address], [address], [facility] 2 14:11:41 Acute bronchit is 91911017 Active 2021 MATT FLOOD [address] [place] [address], [address], [facility] 2 14:11:51 Osteoart hritis of right knee joint 1231932303 45262 Active 2021 Nasir Sharp DO [address] [place] [address], [address], [facility] 2 15:00:41 Impaired fasting glycemia 747793127 Active 2022 Nasir Sharp DO [address] [place] [address], [address], [facility] 3 16:36:46 Type 2 diabetes mellitus 83017508 Completed 202205/02/2022 Removal Reason: now IFG Nasir Sharp DO [address] [place] [address], [address], [facility] 3 16:40:00 Derangem ent of medial meniscus of right knee 6685209151 06986 Active 2022 Nasir Sharp DO [address] [place] [address], [address], [facility] [place] 3 11:47:58 Benign paroxysm al position al vertigo 459251091 Active 2022 Nasir Sharp DO [address] [place] [address], [address], [facility] 3 11:53:06 Chronic kidney disease stage 3 955547093 Active 2022 Nasir Sharp DO [address] [place] [address], [address], [facility] [place] [facility] 3 12:02:30 Acute kidney injury 87993179 Active 2023 MATT FLOOD [address] [place] [address], [address], [facility] [facility] 4 14:01:50 Adult nummular atopic dermatit is Active 2023 Nasir Sharp DO [address] [place] [address], [address], [facility] 4 11:47:48 Tinea corporis 57838394 Active 2023 Nasir Sharp DO [address] [place] [address], [address], [facility] 4 11:48:11 Pain of left hip joint 6366349772 Active 2023 MATT FLOOD [address] [place] [address], [address], [facility] 4 10:23:56 Trochant ayla bursitis of left hip 6081102559 58659 Active 2023 MATT FLOOD [address] [place] [address], [address], [facility] [facility] 4 10:24:18 Subclini omid hypothyr oidism 03650993 Active 2024 Nasir Sharp DO [address] [place] [address], [address], [facility] 5 11:49:19 Thyroid stimulat ing hormone level above referenc e range 209551971 Active 2024 Nasir Sharp DO [address] [place] [address], [address], [facility] [place] [facility] 5 11:50:01 Type 2 diabetes mellitus 98250335 Completed 201705/02/2022 Removal Reason: she has been keeping the A1c level in the region for over a year and so she is no longer an active diabetic Nasir Sharp DO [address] [place] [address], [address], [facility] [place] [facility] 3 16:40:00 Carpal tunnel syndrome of right wrist 2130006846 42939 Active 2017 Not Available [facility] 2 13:13:33 Divertic ular disease 280677668 Active 2017 Not Available [facility] 2 13:13:33 Internal hemorrho ids 92099872 Active 2017 Not Available [facility] 2 13:13:33 Hypercho lesterol emia 17460286 Active 2017 Not Available [facility] 2 13:13:33 Osteoart hritis 128528040 Active 2017 C-spine Not Available [facility] 2 13:13:33 Osteoart hritis of knee 405916738 Active 2017 left knee Not Available [facility] 2 13:13:33 Tear of meniscus of knee 655223039 Active 2017 Not Available [facility] 2 13:13:33 Edema of lower extremit y 590337518 Active 2017 Not Available [facility] 2 13:13:33 Hyperten sive disorder 32857891 Active 2017 Not Available [facility] 2 13:13:32 History of appendec vickey 567850205 Active 2017 Not Available [facility] 2 13:13:33 Herpes zoster 1998279 Active 2017 Not Available [facility] 2 13:13:33 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 Please review these documents and add these problems to the patient's chart manually as needed. Problem Notes None recorded. Procedures Surgical History Date Name Laterality Status Provider Name and Address Organization Details Recorded Time 023 Corticosteroid Injection completed Nasir Sharp, DO [address] [place] [address], [place], [address], [facility] [place] [facility] 09/02/2022 11:12:36 022 Corticosteroid Injection completed Nasir Sharp DO [address] [place] [address], [address], [facility] [place] [facility] 01/27/2022 14:55:18 022 Cerumen Removal completed MATT FLOOD [address] [place] [address], [address], [facility] 09/20/2021 10:59:02 022 WOUND CARE completed MATT FLOOD [address] [place] [address], [address], [facility] [place] [facility] 05/29/2021 16:14:50 021 Cerumen Removal completed MATT FLOOD [address] [place] [address], [address], [facility] [place] [facility] 04/10/2020 10:45:02 019 Cerumen Removal completed MELITON Lao [address] [place] [address], [address], [facility] 12/08/2018 11:10:22 018 Colonoscopy completed Tanja Zamarripa [facility] 10/26/2017 08:32:27 Appendectomy completed Nasir fang, [address] [place] [address], [address], [facility] 06/02/2018 08:23:36 Cholecystectomy completed Nasir hayden DO [address] [place] [address], [address], [facility] 06/02/2018 08:23:44 Imaging Results Imaging Date Name Status LastModified by Organiz ation Details LastModified Time 10/26/2023 MAMMO, screening, digital, bilateral completed [address], [address], 12/04/2023 11:39:28 Procedure Notes None recorded. Medical Equipment None Reported. Allergies Allergen ID Allergen Name Allergen Category Reaction Reaction Severity Criticality Documentation Date Start Date Code Code System Note Provider Name and Address Organization Details Recorded Time 3899 prednison e medicatio n flushing Not available Not available 07/15/2019 8640 RxNorm Nasir EppsjamesDO [address] [place], [address], [facility] [place] [facility] 0 11:46:04 5793 colchicin e medicatio n diarrhea moderate Not available 07/15/2021 2683 RxNorm MATT FLOOD [address] [place], [address], [facility] 2 15:14:36 Medications Name Sig Start Date Stop Date Status Note LastModified by Organization Details LastModified Time celecoxib 200 mg capsule TAKE 1 CAPSULE BY MOUTH TWICE A DAY DIRECTED FOR 14 DAYS active Not Available Not Available No t Available furosemid e 40 mg tablet TAKE 1 TABLET EVERY OTHER DAY active Not Available Not Available No t Available silver sulfadiaz ine 1 % topical cream APPLY A 1/16 INCH (1.5 MM) THICK LAYER TO ENTIRE BURN AREA BY TOPICALR OUTE 2 TIMES PER DAY 11/08 completed Not Available Not Available Not Available metformin 500 mg tablet TAKE 1 TABLET TWICE A DAY 04/24 completed Not Available Not Available Not Available prednison e 10 mg tablet take 4 tabs x 2 daystake 3 tabs x 2 daystake 2 tabs x 2 daystake 1 tab x 2 days 11/03 completed Not Available Not Available Not Available nitrofura ntoin macrocrys jay 50 mg capsule Take 1 capsule every 6 hours by oral route. 04/13 completed Not Available Not Available Not Available polyethyl heavenly glycol 3350 17 gram oral powder packet TAKE 17 GRAMS BY MOUTH NEEDED FOR SEVERE CONSTIPA TION 07/20 completed Not Available Not Available Not Available oxybutyni n chloride ER 10 mg tablet,ex tended release 24 hr TAKE 1 TABLET EVERY EVENING active Not Available Not Available No t Available azithromy lashell 250 mg tablet TAKE 2 TABLETS (500 MG) BY ORAL ROUTE ONCE DAILY FOR 1 DAY THEN 1 TABLET (250 MG) BY ORAL ROUTE ONCE DAILY FOR 4 DAYS 05/02 completed Not Available Not Available Not Available amiodaron e 200 mg tablet TAKE 1 TABLET BY MOUTH TWICE DAILY FOR 2 WEEKS THEN DECREASE TO 1 TABLET BY MOUTH EVERY DAY 12/03 completed Not Available Not Available Not Available benzonata te 200 mg capsule TAKE 1 CAPSULE BY MOUTH THREE TIMES DAILY FOR 7 DAYS 05/02 completed Not Available Not Available Not Available metoprolo l succinate ER 50 mg tablet,ex tended release 24 hr Take 1 tablet every day by oral route. 01/25 completed Not Available Not Available Not Available ondansetr on HCl 8 mg tablet TK 1 T PO TID FOR 4 DAYS PRN 07/20 completed Not Available Not Available Not Available phenazopy ridine 200 mg tablet TAKE 1 TABLET BY MOUTH THREE TIMES DAILY FOR 7 DAYS NEEDED 11/08 completed Not Available Not Available Not Available ondansetr on HCl 4 mg tablet Take 2 tablets twice a day by oral route for 3 days. 10/25 completed Not Available Not Available Not Available lovastati n 40 mg tablet TAKE 1 TABLET BY MOUTH DAILY 05/19 completed Not Available Not Available Not Available metoprolo l succinate ER 100 mg tablet,ex tended release 24 hr Take 1 tablet every day by oral route. 01/22 completed Not Available Not Available Not Available diltiazem ER 240 mg capsule,2 4 hr,extend ed release take 1 capsule by mouth once a day 12/06 completed Not Available Not Available Not Available ciproflox acin 250 mg tablet TAKE 1 TABLET BY MOUTH EVERY 12 HOURS FOR 7 DAYS 01/27 completed Not Available Not Available Not Available allopurin ol 100 mg tablet TAKE 1 TABLET DAILY active Not Available Not Available No t Available sulfameth oxazole 800 mg-trimet hoprim 160 mg tablet TAKE 1 TABLET BY MOUTH EVERY 12 HOURS FOR 7 DAYS 11/08 completed Not Available Not Available Not Available tramadol 50 mg tablet TAKE 1 TABLET BY MOUTH EVERY 6 HOURS FOR 7 DAYS 07/15 completed Not Available Not Available Not Available spironola ctone 25 mg tablet Take 1 tablet every day by oral route for 90 days. 07/15 completed Not Available Not Available Not Available ciclopiro x 8 % topical solution for feet 11/08 completed Not Available Not Available Not Available diltiazem 120 mg tablet Take 1 tablet every day by oral route for 90 days. 11/06 completed Not Available Not Available Not Available potassium chloride ER 20 mEq tablet,ex tended release(p art/cryst ) Take 1 tablet every day by oral route for 30 days. 07/20 completed Not Available Not Available Not Available betametha sone valerate 0.1 % topical cream APPLY A THIN LAYER TO THE AFFECTED AREA(S) BY TOPICAL ROUTE ONCE DAILY 11/08 completed Not Available Not Available Not Available baclofen 10 mg tablet Take 1 tablet twice a day by oral route as needed for 7 days. 12/06 completed Not Available Not Available Not Available cephalexi n 500 mg capsule TAKE 1 TABLET BY MOUTH TWICE A DAY WITH FOOD AND WATER FOR 5 DAYS 12/01 completed Not Available Not Available Not Available clotrimaz ole-betam ethasone 1 %-0.05 % topical cream APPLY TO AFFECTED AREA TWICE A DAY FOR 2 WEEKS TOPICALL Y IN THE MORNING AND EVENING active Not Available Not Available No t Available mupirocin calcium 2 % topical cream 06/19 completed Not Available Not Available Not Available omeprazol e 20 mg capsule,d elayed release TAKE 1 CAPSULE DAILY active Not Available Not Available No t Available codeine 10 mg-guaife nesin 100 mg/5 mL oral liquid TAKE 10 ML BY MOUTH EVERY 4 HOURS 01/27 completed Not Available Not Available Not Available Cartia XT 240 mg capsule,e xtended release Take 1 capsule every day by oral route for 30 days. 10/04 completed Not Available Not Available Not Available lisinopri l 5 mg tablet take 1 po qd 07/20 completed Not Available Not Available Not Available furosemid e 20 mg tablet take 1 tablet by mouth once a day 07/12 completed Not Available Not Available Not Available metoprolo l succinate ER 25 mg tablet,ex tended release 24 hr Take 1 tablet every day by oral route. 11/06 completed Not Available Not Available Not Available colchicin e 0.6 mg tablet Take 1 tablet twice a day by oral route for 7 days. 07/15 completed Not Available Not Available Not Available amoxicill in 875 mg-potass ium clavulana te 125 mg tablet 04/06 completed Not Available Not Available Not Available Cartia XT 180 mg capsule,e xtended release Take 1 capsule every day by oral route for 90 days. 11/05 completed Not Available Not Available Not Available tobramyci n 0.3 %-dexamet hasone 0.1 % eye drops,vinita pension 06/19 completed Not Available Not Available Not Available oxycodone 5 mg tablet TAKE 1/2 - 1 TABLETS BY MOUTH EVERY 6 (SIX) HOURS NEEDED. 08/27 completed Not Available Not Available Not Available Laxative (bisacody l) 5 mg tablet,de layed release TAKE 4 TABLETS BY MOUTH NEEDED, PATIENT HAS INSTRUCT IONS active Not Available Not Available No t Available Pneumovax -23 25 mcg/0.5 mL injection syringe 04/13 completed Not Available Not Available Not Available cyclobenz aprine 5 mg tablet TAKE 1 TABLET BY MOUTH 3 TIMES A DAY NEEDED. NOT COVERED 05/12 completed Not Available Not Available Not Available rosuvasta tin 10 mg tablet TAKE 1 TABLET DAILY 05/02 completed Not Available Not Available Not Available amiodaron e 100 mg tablet TAKE 1 TABLET DAILY active Not Available Not Available No t Available Vitamin C once per day 12/03 completed Not Available Not Available Not Available oxybutyni n chloride take 1 tab 25g qd 05/02 completed Not Available Not Available Not Available Vitamin D once per day active Not Available Not Available No t Available multivita min once daily 07/15 completed Not Available Not Available Not Available GaviLyte- G 236 gram-22.7 4 gram-6.74 gram-5.86 gram oral solution 4000 ML ORALLY PT HAS INSTRUCT IONS 2 DAYS 05/12 completed Not Available Not Available Not Available Prevnar 13 (PF) 0.5 mL intramusc ular syringe 08/17 completed Not Available Not Available Not Available Xarelto 20 mg tablet 11/06 completed Not Available Not Available Not Available Accu-Chek FastClix Lancing Device kit 12/06 completed Not Available Not Available Not Available OneTouch Verio test strips USE TO CHECK BLOOD SUGARS TWO TIMES A DAY active Not Available Not Available No t Available Eliquis 5 mg tablet TAKE 1 TABLET BY MOUTH TWICE A DAY active Not Available Not Available No t Available glucosami ne 116 mg-chondr oitin 100 mg-dietar y supplemen t #25 capsule Take by oral route. 07/20 completed Not Available Not Available Not Available Trulicity 0.75 mg/0.5 mL subcutane ous pen injector 08/27 completed 01/27/22 - not currentl y taking Not Available Not Available Not Available Fluad 65yr up(PF)45 mcg(15 mcgx3)/0. 5 mL intramusc ular syringe 08/05 completed Not Available Not Available Not Available Shingrix (PF) 50 mcg/0.5 mL intramusc ular suspensio n, kit 12/06 completed Not Available Not Available Not Available Accu-Chek Fastclix Lancet Drum twice per day 12/05 completed Not Available Not Available Not Available OneTouch Delica Plus Lancet 33 gauge CHECK GLUCOSE DAILY active Not Available Not Available No t Available Fluzone High-Dose 2018- (PF) 180 mcg/0.5 mL intramusc ular syringe 12/06 completed Not Available Not Available Not Available Fluad Quad (65yr up)(PF) 60 mcg (15 mcg x 4)/0.5mL IM syringe 12/05 completed Not Available Not Available Not Available Vitals Date Recorded Body height Body mass index (BMI) Body weight Heart rate Oxygen saturation Oxygen saturation in Arterial blood by Pulse oximetry Systolic blood pressure Diastolic blood pressure Provider Name and Address Organization Details Last Updated DateTime 4 163.83 cm 27 kg/m2 69609.7 8 g 81 /min 99 % 99 % 150 mm[Hg] 70 mm[Hg] Felicitas Beckett [facility] 4 13:50:22 Date Recorded Body height Body mass index (BMI) Body weight Heart rate Oxygen saturation Oxygen saturation in Arterial blood by Pulse oximetry Systolic blood pressure Diastolic blood pressure Provider Name and Address Organization Details Last Updated DateTime 4 163.83 cm 27.2 kg/m2 17533.3 7 g 76 /min 98 % 98 % 140 mm[Hg] 70 mm[Hg] Felicitas Beckett [facility] 4 11:31:59 Date Recorded Body height Body mass index (BMI) Body weight Heart rate Oxygen saturation Oxygen saturation in Arterial blood by Pulse oximetry Systolic blood pressure Diastolic blood pressure Provider Name and Address Organization Details Last Updated DateTime 4 163.83 cm 28.4 kg/m2 15021.6 g 72 /min 98 % 98 % 144 mm[Hg] 80 mm[Hg] Dari Carmona [facility] [facility] 4 10:04:50 Date Recorded Body height Body mass index (BMI) Body weight Heart rate Oxygen saturation Oxygen saturation in Arterial blood by Pulse oximetry Provider Name and Address Organization Details Last Updated DateTime 4 163.83 cm 28.2 kg/m2 63816.2 9 g 66 /min 98 % 98 % Jin Roain [facility] 4 11:19:58 Date Recorded Systolic blood pressure Diastolic blood pressure Provider Name and Address Organization Details Last Updated DateTime 12/04/2023 139 mm[Hg] 80 mm[Hg] Nasir Sharp, DO [address] [place], [address], [facility] 12/04/2023 11:37:57 Date Recorded Body height Body mass index (BMI) Body weight Heart rate Oxygen saturation Oxygen saturation in Arterial blood by Pulse oximetry Systolic blood pressure Diastolic blood pressure Provider Name and Address Organization Details Last Updated DateTime 5 163.83 cm 27.9 kg/m2 09386.7 4 g 73 /min 95 % 95 % 142 mm[Hg] 70 mm[Hg] Felicitas Sierramond [facility] 5 11:28:44 Social History Question Answer Notes LastModified by Organizat ion Details LastModified Time Tobacco Smoking Status Former Smoker Not Available [facility] 12/13/2019 03:36:24 What Was The Date Of Your Most Recent Tobacco Screening? 12/04/2023 [email or web address] Information not available 12/04/2023 How Many Years Have You Smoked Tobacco? 32 [id number] Information not available 12/13/2019 Do You Or Have You Ever Used Any Other Forms Of Tobacco Or Nicotine? No [email or web address] Information not available 08/27/2022 Sex: Unknown Functional Status None recorded. Mental Status None recorded. Family History Relationship Description Onset Age of this Age Resolved Age Notes LastModified by Organization Details LastModified Time Mother Carcinoma of breast Not available 2018 08:22:48 Medical History No medical history recorded. Gynecological HistoryNo gynecological history recorded. Obstetrics History GPAL:G 0 P 0 0 0 0 Immunizations Vaccine Type Date Status Note Provider Nam e and Address Organization Details Recorded Time Influenza, split virus, quadrivalent, preservative 11/08/19 18 completed Not Available [facility] 10/31/2020 18:30:14 Influenza, split virus, quadrivalent, preservative 03/06/19 22 completed Nasir Sharp DO [address] [place] [address], [id number], [facility] [place] [facility] 03/08/2021 08:24:01 COVID-19, mRNA, LNP-S, PF, 30 mcg/0.3 mL dose 11/25/19 21 completed Nasir Sharp DO [address] [place] [address], [id number], [facility] [place] [facility] 04/24/2021 11:06:39 pneumococcal polysaccharide PPV23 02/15/19 19 completed Not Available [facility] 10/31/2020 18:30:14 zoster live 08/17/19 19 completed Not Available [facility] 10/31/2020 18:30:14 Influenza, split virus, quadrivalent, preservative 10/23/19 19 completed Not Available [facility] 10/31/2020 18:30:14 zoster live 11/10/19 12 completed Not Available [facility] 10/31/2020 18:30:14 Pneumococcal conjugate PCV 13 11/22/19 17 completed Not Available [facility] 10/31/2020 18:30:14 pneumococcal polysaccharide PPV23 11/15/19 13 completed Not Available [facility] 10/31/2020 18:30:14 zoster, unspecified formulation 10/23/19 19 completed Not Available [facility] 10/31/2020 18:30:14 Influenza, split virus, quadrivalent, preservative 10/18/19 20 completed Not Available [facility] 10/31/2020 18:30:14 COVID-19, mRNA, LNP-S, PF, 30 mcg/0.3 mL dose 04/29/19 21 completed Not Available [facility] 10/31/2020 18:30:14 COVID-19, mRNA, LNP-S, PF, 30 mcg/0.3 mL dose 05/20/19 21 completed Not Available [facility] 10/31/2020 18:30:14 Past Encounters Encounter ID Performer Location Encounter Start Date Encounter Closed Date Diagnosis/Indication Diagnosis SNOMED-CT Code Diagnosis ICD10 Code Diagnosis Note [id number] Nasir Sharp DO 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 [address] [facility],[place] [address] 08/05/2017 15:10:39 08/05/2017 16:14:10 Palpitations 23345840 R00.2 EKG Essential hypertension 84056386 I10 stable Type 2 scotty betes mellitus 45949445 E11.9 A1C 7.3 steady History of Malignant melanoma 439086066 Z85.820 up to date dermatolog y [id number] Kimberly Galvin NP, S [facility] [address] [facility] [address],[place] [address] 08/17/2017 09:16:22 08/17/2017 14:35:47 Paroxysmal atrial fibrillation 226860270 I48.0 Essential hypertension 29191221 I10 stable [id number] Nasir Sharp DO [facility] [address] [facility] [address],[place] [address] 11/06/2017 10:14:52 11/06/2017 13:28:48 Hypertensive disorder 61553313 I10 lisinopril 5 mg is well tolerated and is otherwise without issue but af is still present with out accelerate d bp or low bp rechk in 1-2- mo Type 2 scotty betes mellitus 12810911 E11.9 a1c is 7.3 which is sl higher than in past but overall is still stable pt relates is not going for walks or any kind of activity Adult heal th examination 967490179 Z00.01 stable other than AFib Screening for malignant neoplasm of colon 361027937 Z12.11 has had one done recently on oct 24 Screening for osteoporosis 500941702 Z13.820 needs bmd have ordered Screening mammography 24 002198 Z12.31 had this year Paroxysmal atrial fibrillation 475256453 I48.0 will need to increase dose of diltiazem to 180- re chk 1mo Edema of l ower extremity 825276475 R60.0 st]able no issues right now except some tinea on sole and sides of fett told to use lamisil cream [id number] Nasir Sharp [facility] [address] [facility] [facility],[place] [address] 12/07/2017 10:32:53 12/07/2017 11:33:51 Paroxysmal atrial fibrillation 964187595 I48.0 continue dose of diltiazem to 180- re chk 3 mo Edema of l ower extremity 017557118 R60.0 st]able no issues right now except some mild swelling on left dorsum of foot Hypertensive disorder 38 103788 I10 lisinopril 5 mg is well tolerated and is otherwise without issue but af is still present with out accelerate d bp or low bp home bp's are excellent rechk in 1-2- mo Type 2 scotty betes mellitus 18230866 E11.9 a1c is 6.8 which is sl better than in past but overall is still stable pt relates is not going for walks or any kind of activity Impacted cerumen 0159078 6 H61.22 use debrox for several days then come in for irrigation [id number] Kimberly Galvin NP, S [facility] [address] [facility] [facility],[place] [employer] [place] [address] 12/14/2017 10:38:30 12/14/2017 12:37:48 Impacted cerumen of bilateral ears 6041646721 011748 H61.23 cleared with currette Dysuria 80789844 R30.0 [id number] Nasir Sharp [facility] [address] [facility] [facility],[place] [employer] [address] 02/12/2018 09:51:26 02/12/2018 14:09:09 Paroxysmal atrial fibrillation 972162711 I48.0 continue dose of diltiazem to 180- re chk 3 mo seen recently by cardiology which maintained current treatment Type 2 scotty betes mellitus 83834956 E11.9 a1c is 7.0 which is sl worse than in past but overall is still stable pt relates is not going for walks or any kind of activity microalb was neg Hypertensive disorder 38 167361 I10 lisinopril 5 mg is well tolerated and is otherwise without issue but af is still present with out accelerate d bp or low bp home bp's are excellent rechk in 3 mo cholestero l reviewed LDL 44 Edema of l ower extremity 558280099 R60.0 noted edema of 1+ bilat noted pain in bunions [id number] Kimberly Galvin NP, S [facility] [address] [facility] [facility], [place] [address] 04/13/2018 10:03:03 04/13/2018 12:07:17 Pain in right knee 9389713809 34891 M25.561 explained probably won't be diagnostic Paroxysmal atrial fibrillation 953553541 I48.0 current NSR Hypertensive disorder 38 900407 I10 stable Type 2 scotty betes mellitus 01660164 E11.40 has current lab slips to follow [id number] Nasir Sharp, [facility] [address] [facility], [place] [address] 05/19/2018 10:18:07 05/19/2018 10:46:47 Adult health examination 132381512 Z00.00 stable other than AFib Screening for cardiovascular system disease 388129622 Z13.6 will order for next fall Screening for malignant neoplasm of colon 972182184 Z12.11 has had one done recently on oct 24 Screening for osteoporosis 711658505 Z13.820 already done Screening mammography 24 611600 Z12.31 is set for september app Paroxysmal atrial fibrillation 774145372 I48.0 continue dose of diltiazem to 180- re chk 3 mo and metoprolol also is good dose seen recently by cardiology which maintained current treatment Edema of l ower extremity 858887255 R60.0 no edema !!!! Hypertensive disorder 38 102603 I10 lisinopril 5 mg is well tolerated and is otherwise without issue but af is still present with out accelerate d bp or low bp home bp's are excellent rechk in 3 mo cholestero l reviewed LDL 44 from last january Type 2 scotty betes mellitus 97907375 E11.9 a1c is 7.3 which is sl worse than in past but overall is still stable pt relates is not going for walks or any kind of activity microalb was neg the last labwork in [id number] Nasir Sharp DO [facility] [address] [facility],[place] [address] 09/01/2018 10:23:50 09/01/2018 11:26:36 Paroxysmal atrial fibrillation 222198627 I48.0 continue dose of diltiazem to 180- re chk 3 mo and metoprolol also is good dose seen recently by cardiology which maintained current treatment Hypertensive disorder 38 193683 I10 lisinopril 5 mg is well tolerated and is otherwise without issue but af is still present with out accelerate d bp or low bp home bp's are excellent rechk in 3 mo cholestero l reviewed LDL 44 from last january Type 2 scotty betes mellitus 50866164 E11.9 a1c is 7.0 which is sl better than in past but overall is still stable pt relates is not going for walks or any kind of activity microalb was neg the last labwork in jan Edema of l ower extremity 988135408 R60.0 trace edema bilat Hypercholesterolemia 136 08441 E78.00 LDL 40!!!! fantastic Pain in right thumb 1076 885375 677018 M79.644 has been getting worse with pain radisates up to finger tip Acquired l eft hallux valgus 0900945918 99932 M20.12 pain in foot is getting worse and beginning to interfere with gait [id number] Nasir Sharp DO 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 [address] [facility] [facility], [place] [address] 10/08/2018 09:37:48 10/08/2018 10:50:16 Abdominal pain 82580797 R10.9 ? gastritis/ esophagiti s Vomiting 991157498 R11.1 0 ? gastroente ritis Paroxysmal atrial fibrillation 440602802 I48.[id number] [facility] [address] [facility] [address], [place] [address] 10/25/2018 11:09:28 10/25/2018 11:49:55 Hypertensive disorder 53240215 I10 stable Paroxysmal atrial fibrillation 249832210 I48.0 on eliquis Osteoarthritis 318917825 M19.90 Neck pain 40913545 M54.2 will trial steroid for inflammati on and very cautious use of muscle relaxant aware of drowsiness also do heat with gentle stretching consider pt if treatment fails [id number] [facility] [address] [facility], [address] [place] [address] 11/03/2018 15:30:29 11/03/2018 16:32:38 Hypertensive disorder 90472093 I10 stable Paroxysmal atrial fibrillation 691413315 I48.0 on eliquis Type 2 scotty betes mellitus 33905168 E11.65 blood sugars have been less than 200 Dizziness 880031664 R42 none since this morning likely 2/2 rapid HR but will recheck in a couple days go to ER if LOC or sx return Rapid atri al fibrillation 073171705 I48.[id number] [facility] [address] [facility] [facility], [place] [address] 11/05/2018 14:58:01 11/05/2018 15:12:15 Hypertensive disorder 79104425 I10 low end of normal, without orthostati c sx Paroxysmal atrial fibrillation 373395780 I48.0 on eliquis rate controlled with increase in cartia Type 2 scotty betes mellitus 67251751 E11.65 blood sugars have been less than 200 Dizziness 651150437 R42 resolved [id number] Nasir Sharp DO [facility] [address] [facility] [facility], [place] [address] 12/06/2018 10:35:56 12/06/2018 11:33:25 Paroxysmal atrial fibrillation 335165302 I48.0 continue dose of diltiazem to 180- re chk 3 mo and metoprolol also is good dose seen recently by cardiology which maintained current treatment Hypercholesterolemia 136 41753 E78.00 LDL 40!!!! fantastic Hypertensive disorder 38 477471 I10 lisinopril 5 mg is well tolerated and is otherwise without issue but af is still present with out accelerate d bp or low bp home bp's are excellent rechk in 3 mo cholestero l reviewed LDL 44 from last january Type 2 scotty betes mellitus 69490457 E11.9 a1c is 7.0 which is sl better than in past but overall is still stable pt relates is not going for walks or any kind of activity microalb was neg the last labwork in [facility] Edema of l ower extremity 339782845 R60.0 edema bilat has worsened she does not elevate her legs does not wear the support stockings encouraged to do so i would rather not have her on a diuretic if we can avoid this [id number] MELITON Lao [facility] [address] [facility],[place] [address] 12/08/2018 10:38:32 12/08/2018 11:20:48 Impacted cerumen of bilateral ears 3260917133 754219 H61.23 resolved after flush Decreased hearing 130279 001 H91.93 improved after flush Hypertensive disorder 38 293493 I10 low end of [place], [place] [id number] Nasir Sharp DO [facility] [address] [facility], [place] [address] 12/17/2018 14:01:10 12/17/2018 14:23:54 Type 2 diabetes mellitus 88161625 E11.9 a1c is 7.0 which is sl better than in past but overall is still stable pt relates is not going for walks or any kind of activity microalb was neg the last labwork in [facility] Hypertensive disorder 38 887043 I10 lisinopril 5 mg is well tolerated and is otherwise without issue but af is still present with out accelerate d bp or low bp home bp's are excellent rechk in 3 mo cholestshakira buckner reviewed LDL 44 from last january Edema of l ower extremity 281338967 R60.0 cont with the 20 mg lasix for now and we will wait to see how she does over the next month and see her in feb Paroxysmal atrial fibrillation 901298725 I48.0 continue dose of diltiazem to 180- re chk 3 mo and metoprolol also is good dose seen recently by cardiology which maintained current treatment [id number] Nasir Sharp [facility] [address] [facility] [facility],[place] [employer] [place] [employer] [facility] [place] [address] 03/09/2019 10:48:22 03/09/2019 12:00:45 Paroxysmal atrial fibrillation 377163485 I48.0 continue dose of diltiazem to 180- re chk 3 mo and metoprolol also is good dose seen recently by cardiology which maintained current treatment Hypertensive disorder 38 415005 I10 lisinopril 5 mg is well tolerated and is otherwise without issue but af is still present with out accelerate d bp or low bp home bp's are excellent rechk in 3 mo shaka buckner reviewed LDL 44 from last january Type 2 scotty betes mellitus 57846523 E11.9 A1C 7.8 up from 7.6, microalb neg Will start metformin 500 mg if the next test is not improved (may) Foot pain 91869816 M79.6 73 pain in both feet danette left though with pain rad up her left calf but no palp pain to the achilles told her to slow down the treadmill a bit but to continue walking [id number] Nasir Sharp [facility] [address] [facility],[place] [employer] [place] [address] 06/24/2019 10:15:12 06/24/2019 10:47:38 Adult health examination 709766640 Z00.01 stable other than AFib Screening for cardiovascular system disease 239874259 Z13.6 will order for next fall Screening for malignant neoplasm of colon 587733866 Z12.11 has had one done recently on oct 24 Screening for osteoporosis 068207658 Z13.820 already done Screening mammography 082417 Z12.31 had 2018 appt has piece jobber appt cxld and pending covid Paroxysmal atrial fibrillation 594845019 I48.0 continue dose of diltiazem to 180- re chk 3 mo and metoprolol also is good dose seen recently by cardiology which maintained current treatment only having occ palpitat or flutter seing cardiology in december Hypertensive disorder 38 480871 I10 lisinopril 5 mg is well tolerated and is otherwise without issue but af is still present with out accelerate d bp or low bp home bp's are excellent rechk in 3 mo cholestero l reviewed LDL 44 from last january Type 2 scotty betes mellitus 26821681 E11.9 A1C 7.0 down from 7.6, microalb neg still not on metformin or any other med told her that need to get below a1c 7 [id number] MATT FLOOD [facility] [address] [facility] [facility],[place] [address] 07/13/2019 13:55:49 07/13/2019 14:32:49 Gout 18644554 M10.9 will call us on thursday if it isn't better on thursday will first dose of colchicine cannot take prednisone based on past reaction cannot take indomethac in based on use of Eliquis will check uric acid on the 08/02 [id number] Nasir Sharp DO [facility] [address] [facility] [facility],[place] [address] 07/15/2019 10:57:29 07/15/2019 11:53:39 Melena 2012716 K92.1 Diarrhea 59535302 R19.7 as long as slowing down we are fine instructed re diet and adequate fluid intake Gout 01825065 M10.9 of the 3rd toe of right foot with improvemen t after cocrys use wish to use pred taper but pt states had flushing prob with pred and doesnt want [id number] Nasir Sharp DO [facility] [address] [facility] [facility],[place] [address] 07/19/2019 15:42:45 07/19/2019 16:26:49 Gout 72945828 M10.9 marked improvemen t of her swelling and reddnes and is clinically near resolution will cont conserv care [place] [id number] Nasir Sharp DO [facility] [address] [facility],[place] [address] [place] [address] 10/05/2019 10:57:10 10/05/2019 12:03:44 Paroxysmal atrial fibrillation 432291884 I48.0 continue dose of diltiazem to 180- re chk 3 mo and metoprolol also is good dose seen recently by cardiology which maintained current treatment only having occ palpitat or flutter seing cardiology in december Hypertensive disorder 38 956210 I10 lisinopril 5 mg is well tolerated and is otherwise without issue but af is still present with out accelerate d bp or low bp home bp's are excellent rechk in 3 mo now on 100mg of toprol and is off diltiazem due to edema cholestero l reviewed LDL 44 from last january Type 2 scotty betes mellitus 90626248 E11.9 A1C 7.0 was 7.0 in may and down from 7.6 before that , microalb neg still not on metformin or any other med told her that need to get below a1c 7 [id number] MATT FLOOD [facility] [address] [facility] [facility],[place] [employer] [place] [address] 12/06/2019 15:58:25 12/06/2019 16:24:29 Carpal tunnel syndrome of right wrist 6189325063 12712 G56.01 may be recurrent carpal tunnel due to failed surgery will set her up with specialist and have her evaled Type 2 scotty betes mellitus 14373452 E11.9 A1c has been good, actually been decreasing slowly at each fu her glucose reading at home have also been great been ranging between 120-180s which are great unlikely to be peripheral ly neuropathy because she is not a long time uncontroll ed diabetic as her numbers have been good and well controlled [id number] Nasir Sharp DO [facility] [address] [facility],[place] [employer] [place] [address] 01/09/2020 12:07:33 01/09/2020 16:26:10 Viral gastroenteritis 387536620 A08.4 [id number] Nasir Sharp DO [facility] [address] [facility] [address],[place] [address] 01/23/2020 08:50:26 01/23/2020 15:33:37 Paroxysmal atrial fibrillation 982762522 I48.0 is off the diltiazem and is now controlled with the amiodarone started by cardiol seen recently by cardiology which maintained current treatment only having occ palpitat or flutter seing cardiology in december Hypertensive disorder 38 061963 I10 lisinopril 5 mg is well tolerated and is otherwise without issue but af is still present with out accelerate d bp or low bp home bp's are excellent rechk in 3 mo now on 100mg of toprol and is off diltiazem cholestero l reviewed LDL 44 from january Ascending cholangitis 26 899038 K83.09 has stabilized after a EGD sphinctero vickey no new symptoms or fever Edema of l ower extremity 327807826 R60.0 must cont to keep legs raised Type 2 scotty betes mellitus 25880923 E11.9 A1Cis pending before was 7.0 was 7.0 in may and down from 7.6 before that , microalb neg still not on metformin or any other med told her that need to get below a1c 7 [id number] Nasir Sharp, [facility] [address],[facility] [place] [address] 04/06/2020 10:13:43 04/06/2020 11:06:56 Type 2 diabetes mellitus 15189584 E11.9 A1Cis doing good at 6.0!!! before was 7.0 was 7.0 in may and down from 7.6 before that , microalb neg on metformin and is doing good not snacking and overall she has lost 20lbs!!!! Hypertensive disorder 38 348585 I10 lisinopril 5 mg is well tolerated and is otherwise without issue but af is still present with out accelerate d bp or low bp home bp's are excellent rechk in 3 mo now on 100mg of toprol and is off diltiazem cholestero l reviewed LDL 44 from january Paroxysmal atrial fibrillation 114080309 I48.0 is off the diltiazem and is now controlled with the amiodarone started by cardiol seen recently by cardiology which maintained current treatment only having occ palpitat or flutter seeing cardiology in april had to be placed on K+ for low levels she is stable and is on eliquis and amiodarone Gastroesop hageal reflux disease 856745281 K21.9 will go back on prilosec has new rx orderd Edema of l ower extremity 061899647 R60.0 must cont to keep legs raised has stabilized on the diuretic furosemide but have had to add K+ [id number] MATT FLOOD [facility] [address] [facility],[place] [employer] [place] [address] 04/10/2020 10:33:35 04/10/2020 13:39:36 Impacted cerumen of bilateral ears 6329726992 693332 H61.23 patient ears were irrigated, patient tolerated procedure well TMs were visualized bilaterall y no signs or symptoms of infection hearing improved fu as needed for lavage [id number] Nasir Sharp DO [facility] Internal Medicine [address] [facility],[place] [address] 07/20/2020 14:00:47 07/20/2020 14:46:22 Paroxysmal atrial fibrillation 724014863 I48.0 is off the diltiazem and is now controlled with the amiodarone started by cardiol and still doing great seen recently by cardiology which maintained current treatment only having occ palpitat or flutter seeing cardiology in april she is stable and is on eliquis and amiodarone Hypertensive disorder 38 350558 I10 home bp's are excellent rechk in 3 mo shaka sita reviewed LDL 44 from last january and is awesome Type 2 scotty betes mellitus 93790707 E11.65 A1Cis doing good at 6.0!!! before was 7.0 was 7.0 in may and down from 7.6 before that , microalb neg on metformin and is doing good not snacking and overall she has lost 20lbs!!!! we will stop the pm metfromin dose Renal insufficiency 7231 46243 N28.9 prob multifacto rial: dm htn dehydratio n, age, lasix she will stop lasix and rechk lab one week [id number] MATT FLOOD [facility] [address] [facility],[place] [employer] [place] [place] [address] 09/18/2020 10:19:51 09/18/2020 11:01:11 Dysuria 57514265 R30.9 will start on abx and send urine out for culture Acute urin rani tract infection 322127916 N39.0 dipstick indicates UTI [id number] MATT FLOOD [facility] Internal Medicine [address] [facility],[place] [address] 09/24/2020 14:26:51 09/24/2020 16:07:05 Contact dermatitis 00938553 L25.9 per note, can use topical steriod, aloe and cold compresses if needed [id number] MATT FLOOD [facility] Internal Medicine [address] [facility],[place] [address] 10/16/2020 13:58:28 10/16/2020 14:26:05 Swelling of lower leg 322386361 R22.41 significan t increase in swelling and color change of the LE, right side distallywi th color change to bluish-pur ple and prominence of varicose veinsdeter ioration of skin around the ankle as well due to fluid f/o STAT US r/o DVT [id number] Nasir Sharp DO [facility] Internal Medicine [address] [facility],[place] [address] 10/26/2020 10:53:23 10/26/2020 16:15:16 Edema of lower extremity 377527509 R60.0 must cont to keep legs raised has stabilized on the diuretic furosemide but have had to add K+ Hypertensive disorder 38 092808 I10 home bp's are excellent rechk in 3 mo shaka buckner reviewed LDL 44 from last january and is awesome Paroxysmal atrial fibrillation 286874418 I48.0 is off the diltiazem and is now controlled with the amiodarone started by cardiol and still doing great seen recently by cardiology which maintained current treatment only having occ palpitat or flutter seeing cardiology in april she is stable and is on eliquis and amiodarone Type 2 scotty betes mellitus 40433980 E11.65 A1Cis doing good at 6.7!!! before was 6.4 and then 6.0 was 7.0, microalb neg on metformin and is doing good not snacking and overall she has lost 20lbs!!!! we will stop the [place]in dose [id number] Nasir Sharp DO [facility] Internal Medicine [address] [facility],[place] [address] 01/25/2021 08:34:22 01/25/2021 14:17:47 Hypertensive disorder 77300959 I10 home bp's are excellent rechk in 3 mo shaka buckner reviewed LDL 44 from last january and is awesome Type 2 scotty betes mellitus 19189293 E11.65 A1Cis doing good at 6.2 and in oct was 6.7!!! before was 6.4 and then 6.0 was 7.0, microalb neg on metformin and is doing good only occ snacking and overall she has kept off the 20lbs!!!! we had stop the pm metfromin dose Paroxysmal atrial fibrillation 836525605 I48.0 is off the diltiazem and is off the metoprolol and is on once a day amiodarone now and still doing great seen recently by cardiology which ordered the current treatment only having occ palpitat or flutter seeing cardiology in april she is stable and is on eliquis and amiodarone Edema of l ower extremity 913173728 R60.0 must cont to keep legs raised has stabilized on the diuretic furosemide but have had to add K+and is stable no w will be seeing vascular on feb 26 [id number] Nasir Sharp DO [facility] Internal Medicine [address] [facility],[place] [address] 04/24/2021 10:58:04 04/24/2021 16:25:07 Paroxysmal atrial fibrillation 161686695 I48.0 is off the diltiazem and is off the metoprolol and is on once a day amiodarone now and still doing great seen recently by cardiology which ordered the current treatment only having occ palpitat or flutter seeing cardiology in april she is stable and is on eliquis and amiodarone Type 2 scotty betes mellitus 51527616 E11.65 A1Cis doing good at 5.6 6.2 and in oct was 6.7!!! before was 6.4 and then 6.0 was 7.0, microalb neg on metformin and is doing good only occ snacking and overall she has kept off the 20lbs!!!! we had stop the pm metfromin dose Hypertensive disorder 38 560804 I10 bp her is awful high here today home bp's are sl high too rechk in 3 mowas placed on spironolac tone by cardiol for bp will need to [facility] LDL 44 from last january and is awesome Urinary incontinence 165 421914 R32 Basal cell carcinoma of skin 047985183 C44.91 noted prob basal or squamous ca of right upper arm Right flank pain 3028641 09 R10.9 mild discomfort like a burning she will let me know if pain increases? renal calculi Abrasion a nd/or friction burn of skin 785977577 T14.8XXA will place tegraderm over lesion with instructio ns rechk in 10 dys [id number] Nasir Sharp DO [facility] Internal Medicine [address],[place] [address] 05/10/2021 11:07:23 05/10/2021 15:37:55 Edema of lower extremity 910651839 R60.0 must cont to keep legs raised has stabilized on the diuretic furosemide but have had to add K+and is stable no w so we will hold the spironolac tone as her BUN/CREAT have risen to 36/1.9we will rechk in 1 mo Hypertensive disorder 38 482383 I10 bp her is awful high here today home bp's are sl high too rechk in 3 mohold the spironolac tone by cardiol for bp will need to reassess when she comes back in cholestero l reviewed LDL 44 from last january and is awesome Paroxysmal atrial fibrillation 627943236 I48.0 is off the diltiazem and is off the metoprolol and is on once a day amiodarone now and still doing great seen recently by cardiology which ordered the current treatment only having occ palpitat or flutter seeing cardiology in april she is stable and is on eliquis and amiodarone Type 2 scotty betes mellitus 04939648 E11.65 A1Cis doing good at 5.5 and was 5.6 6.2 and in oct was 6.7!!! before was 6.4 and then 6.0 was 7.0, microalb neg on metformin and is doing good only occ snacking and overall she has kept off the 20lbs!!!! we had stop the pm metfromin dose [id number] MATT FLOOD [facility] Internal Medicine [address] [facility],[place] [address] 05/29/2021 15:43:33 05/29/2021 16:31:18 Pain of left knee region 3473288830 81836 M25.562 will fu with testing, XR and uric acid Venous sta sis ulcer of leg 839952831 I83.028 cleaned and re-dressed in office [id number] MATT FLOOD [facility] Internal Medicine [address] [facility],[place] [address] 07/15/2021 14:34:08 07/16/2021 08:46:53 Tear of meniscus of knee 315449258 S83.222A seeing ortho at the end of the month Pain of le ft knee region 7539718522 99633 M25.562 given course of oxy for paintramad ol didn't helpallerg ic to pred and colchicine can't take NSAIDsAPAP no relief [id number] Nasir Sharp, [facility] Medicine [address] [facility],[place] [address] 07/24/2021 08:04:48 07/24/2021 15:39:32 Hypertensive disorder 21854867 I10 bp her is awful high here today home bp's are sl high too rechk in 3 mohold the spironolac tone by cardiol for bp will need to reassess when she comes back in [facility] reviewed LDL 44 from last january and is awesome Type 2 scotty betes mellitus 56232925 E11.65 A1Cis doing good at 5.4 5.5 and was 5.6 6.2 and in oct was 6.7!!! bwe will decrease the trulicity to every 2 weeks and rechk in 3 months Acute meni scal tear, medial 900942706 S83.242D never got orginal rx for oxycod [id number] MATT FLOOD [facility] Internal Medicine [address] [address],[place] [address] 09/20/2021 10:30:25 09/20/2021 10:57:24 Acute urinary tract infection 979324600 N39.0 dipstick indicates UTI Dysuria 93996139 R30.0 will start on abx and send urine out for culture Ulcer of l eft lower leg 1758688430 0290383 L97.821 will set up with wound care Impacted c erumen in left ear 7950874119 162206 H61.22 resolved [id number] MATT FLOOD [facility] Internal Medicine [address] [facility] [address],[place] [address] 10/18/2021 09:47:40 10/18/2021 14:37:36 Dysuria 77092382 R30.0 going on vacation tomorrowwi ll [place] appropriat [place] medication s [id number] Nasir Sharp, [facility] Internal Medicine [address] [facility] [address],[place] [address] 11/08/2021 09:57:38 11/08/2021 11:15:42 Paroxysmal atrial fibrillation 500166345 I48.0 only having occ palpitat or flutter seeing cardiology in november for follow up she is stable and is on eliquis and amiodarone Type 2 scotty betes mellitus 09287664 E11.65 A1Cis doing good at 5.6 !! 5.4 5.5 and was 5.6 6.2 and in sept last year was 6.7!!! bwe will hold the trulicity and rechk in 3 months Hypertensive disorder 38 579917 I10 bps are excellent at home as described rechk in 3 mowill need to reassess when she [facility] reviewed LDL 44 from last january and is awesome [id number] MATT FLOOD [facility] Internal Medicine [address] [facility] [address],[place] [address] 12/04/2021 10:03:53 12/06/2021 09:06:25 Dry cough 49483714 R05.1 will start on cough syrup Acute bronchitis 5537002 2 J20.8 will start abx [id number] Nasir Sharp DO [facility] Internal Medicine [address],[place] [address] 01/27/2022 14:10:26 01/27/2022 16:23:52 Type 2 diabetes mellitus 44917208 E11.65 A1Cis doing good at 5.6 !! 5.4 5.5 and was 5.6 6.2 and in sept last year was 6.7!!! bwe will hold the trulicity and rechk in 3 months Hypertensive disorder 38 148539 I10 bps are excellent at home as described rechk in 3 mowill need to reassess when she comes back in cholestero l reviewed LDL 44 from last january and is awesome Hypercholesterolemia 136 91137 E78.00 LDL 40!!!! fantastic Osteoarthr itis of right knee joint 4660966025 23062 M17.11 yolie inj well tolerated [id number] Nasir Sharp DO [facility] Internal Medicine [address],[place] [address] 05/02/2022 16:16:07 05/05/2022 08:50:15 Type 2 diabetes mellitus 73895470 E11.65 A1Cis doing good at 5.8 was 5.9 5.6 !! 5.4 5.5doing fantastic she will now be put in a non diabetic category Hypertensive disorder 38 093354 I10 bps are excellent at home as described rechk in 3 mowill need to reassess when she comes back in cholestero l reviewed LDL 44 from last january and is awesome Carpal suzette alec syndrome of right wrist 0632774433 79394 G56.01 getting surgery next week Paroxysmal atrial fibrillation 764898410 I48.0 only having occ palpitat or flutter seeing cardiology in november for follow up she is stable and is on eliquis and amiodarone Venous sta sis ulcer of leg 514132598 I83.028 resolved Ulcer of l eft lower leg 8596305105 2845513 L97.821 resolved Impaired f asting glycemia 817623293 R73.01 she is no longer a active diabetic with her a1c running in the high 5's she will cont to [facility] [id number] Nasir Sharp DO [facility] [address] [facility],[place] [address] 08/27/2022 11:13:57 08/27/2022 12:08:00 Hypertensive disorder 69980693 I10 bps are excellent at home as described rechk in 3 mowill need to reassess when she comes [facility] reviewed LDL 44 from last january and is awesome Impaired f asting glycemia 825281725 R73.01 she is no longer a active diabetic with her a1c running in the high 5's she will cont to [facility] Derangemen t of medial meniscus of right knee 8386456387 29162 M23.303 we will have her come back in for a yolie inj Benign par oxysmal positional vertigo 397108505 H81.12 slowly getting better already [id number] Nasir Sharp [facility] Internal Medicine [address] [facility],[place] [address] 09/02/2022 10:15:00 09/02/2022 14:39:14 Derangement of medial meniscus of right knee 0362027298 69140 M23.303 yolie inj well tolerated [id number] Nasir Sharp [facility] Internal Medicine [address] [facility],[place] [address] 12/01/2022 11:11:37 12/01/2022 12:27:06 Paroxysmal atrial fibrillation 307927593 I48.0 only having occ palpitat or flutter seeing cardiology in november for follow up she is stable and is on eliquis and amiodarone Hypertensive disorder 38 757352 I10 bps are excellent at home as described rechk in 3 mowill need to reassess when she [facility] reviewed LDL 44 from last january and is awesome Impaired f asting glycemia 621055319 R73.01 she is no longer a active diabetic with her a1c running in the high 5's she will cont to k Chronic ki dney disease stage 3 831559980 N18.30 stable and has gfr at 38 and unchanged Derangemen t of medial meniscus of right knee 7499479708 75790 M23.303 yolie inj well tolerated Type 2 scotty betes mellitus 95543808 E11.65 A1Cis doing good at 5.8 was 5.9 5.6 !! 5.4 5.5doing fantastic she will now be put in a non diabetic category [id number] Nasir Sharp [facility] Medicine [address] [facility],[place] [address] 02/11/2023 08:24:02 02/11/2023 15:45:54 Hypertensive disorder 31675791 I10 bps are excellent at home as described rechk in 3 mowill need to reassess when she comes [facility] reviewed LDL 44 from last january and is awesome Hypercholesterolemia 136 86617 E78.00 LDL 90!!!! fantastic Impaired f asting glycemia 043739704 R73.01 she is no longer a active diabetic with her a1c running in the high 5's she will cont to chkshe is now 5.8 Edema of l ower extremity 056651413 R60.0 must cont to keep legs raised has stabilized on the diuretic furosemide but have had to add K+and is stable no w so we will hold the spironolac tone as her BUN/CREAT have risen to 36/1.9we will rechk in 1 mo Paroxysmal atrial fibrillation 029505814 I48.0 only having occ palpitat or flutter seeing cardiology in november for follow up she is stable and is on eliquis and amiodarone Type 2 csotty betes mellitus 85764827 E11.65 A1Cis doing good at 5.8 was 5.9 5.6 !! 5.4 5.5doing fantastic she will now be put in a non diabetic category [id number] Nasir Sharp [facility] Medicine [address] [facility],[place] [address] 05/13/2023 13:39:54 05/13/2023 15:14:20 Paroxysmal atrial fibrillation 730834677 I48.0 only having occ palpitat or flutter seeing cardiology in november for follow up she is stable and is on eliquis and amiodarone Impaired f asting glycemia 668432601 R73.01 she is no longer a active diabetic with her a1c running in the high 5's she will cont to chkshe is now 5.9 was 5.8 Hypercholesterolemia 136 68072 E78.00 LDL 90!!!! fantastic Hypertensive disorder 38 475092 I10 bps are excellent at home as described rechk in 3 mochristina need to reassess when she comes back in [facility] l reviewed LDL 44 from last january and is awesome Edema of l ower extremity 204323475 R60.0 must cont to keep legs raised has stabilized on the diuretic furosemide but have had to add K+and is stable no w so we will hold the spironolac tone as her BUN/CREAT have risen to 36/1.9we will rechk in 1 mo Chronic ki dney disease stage 3 021390021 N18.30 stable and has gfr at 34 was 38 and unchanged essentiall y [id number] Nasir Sharp DO [facility] Internal Medicine [address] [facility],[place] [address] 09/02/2023 11:27:02 09/04/2023 08:32:49 Chronic kidney disease stage 3 033441369 N18.30 stable and has gfr at 34 was 38 and unchanged essentiall y Edema of l ower extremity 927946450 R60.0 must cont to keep legs raised has stabilized on the diuretic furosemide but have had to add K+and is stable no w so we will hold the spironolac tone as her BUN/CREAT have risen to 36/1.9we will rechk in 1 mo Paroxysmal atrial fibrillation 075261507 I48.0 stable and asymptomat iconly having occ palpitat or flutter seeing cardiology in november for follow up she is stable and is on eliquis and amiodarone Impaired f asting glycemia 758675218 R73.01 she is no longer a active diabetic with her a1c running in the high 5's she will cont to chkshe is still 5.9 was 5.8 Adult numm ular atopic dermatitis 8189241228 L30.0 Tinea corporis 31530798 B35.4 [id number] MATT FLOOD [facility] Internal Medicine [address],[place] [employer] [facility] [place] [address] 10/13/2023 09:56:55 10/13/2023 11:32:58 Pain of left hip joint 1023830702 90645 M25.552 will monitor Trochanter ic bursitis of left hip 2069505885 64152 M70.62 will trial short course of celebrex for ptmindful of allergies and CKD [id number] Nasir Sharp [facility] [address] [facility] [place] [address] 12/04/2023 11:12:55 12/04/2023 14:22:09 Paroxysmal atrial fibrillation 718313605 I48.0 stable and asymptomat iconly having occ palpitat or flutter seeing cardiology in november for follow up she is stable and is on eliquis and amiodarone Hypertensive disorder 38 448569 I10 bps are excellent at home as described rechk in 3 mowill need to reassess when she comes back in cholestero l reviewed LDL 44 from last january and is awesome Impaired f asting glycemia 767667335 R73.01 she is no longer a active diabetic with her a1c running in the high 5's she will cont to chka1c is 6.1doing well no issues Chronic ki dney disease stage 3 848201708 N18.32 stable and has gfr at 34 was 38 and unchanged essentiall y [id number] Nasir Sharp, [facility] [address] [facility] [place] [address] 03/09/2024 11:21:51 03/09/2024 12:17:44 Chronic kidney disease stage 3 429960375 N18.32 stable and has gfr at 34 was 38 and unchanged essentiall y Hypertensive disorder 38 293471 I10 bps are excellent at home as described rechk in 3 mowill need to reassess when she comes back in cholestero l reviewed LDL 44 from last january and is awesome Impaired f asting glycemia 225768759 R73.01 she is no longer a active diabetic with her a1c running in the high 5's she will cont to chka1c is 6.1doing well no issues Gastroesop hageal reflux disease 604110781 K21.9 will go back on prilosec has new rx orderd Thyroid st imulating hormone level above reference range 610691840 R94.6 tsh is sl high but not enough to be of any significan ce Health Concerns Section Related Observation LastModified by Organization Detai ls LastModified Time None Recorded Concern Status LastModified by Organization Details LastModified Time None Recorded Advance Directives Directive None Recorded Payers Encounter Date Sequence Insurance Name Policy Number Policy Juarez Covered Member ID Juarez Member ID Guarantor Name 05/13/2023 1 [place] HMO) [id number] Flori A Martina [id number] Flori Martina 09/02/2023 1 [place]) [id number] Flori A Martina [id number] Flori Martina 10/13/2023 1 [place] HMO) [id number] Flori A Martina [id number] Flori Martina 12/04/2023 1 [place] HMO) [id number] Flori A Martina [id number] Flori Martina 03/09/2024 1 [place] HMO) [id number] Flori A Martina [id number] Flori Martina Notes Date Note Type Note Provider Name and Address Organization Details Recorded Time 4 text/htm l Care Management - DiabetesReported bypatient.Self Care:seeing eye doctor yearly for dilated eye exam; checking feet regularly; normal range of home blood sugars (in the low 100s); no side effects from medications Associated Symptoms:symptoms are usually well controlled; no fatigue; no dizziness; no excessive sweating; no headaches; no confusion; no increased thirst; no increased appetite; no increased urination; no blurred vision; no numbness of feet; no calluses on feetCare Management - HypertensionReported bypatient.Self Care:not under emotional stress Severity:symptoms are improving; does not interfere with daily activities Associated Symptoms:no dizziness; no lightheadedness; no chest pain; no shortness of breath; no palpitations; no edema; no calf muscle cramps; no blurred vision; no confusion; no headaches; no fatigue here for rechkfeels well no major issuesdenies any sobappetite oksleep is fair Nasir Hunter Roque, DO [address] [place], [address], [facility] [place] [facility] 05/13/2023 14:17:31 4 text/htm l Care Management - HypertensionReported bypatient.Self Care:not under emotional stress Severity:symptoms are improving; does not interfere with daily activities Associated Symptoms:no dizziness; no lightheadedness; no chest pain; no shortness of breath; no palpitations; no edema; no calf muscle cramps; no blurred vision; no confusion; no headaches; no fatigue here for mwv feeling good no major issues except her right knee has been sore and also swollen at times sore Nasir SharpDO [address] [place], [address], [facility] [place] [facility] 09/02/2023 11:49:47 4 text/htm l c/o leg pain the patient is having left knee pain since injuring her left kneewas on the treadmill, started getting knee pain, got off after a little whileknee pain improved but started getting hip painprobably from gait changewill set up with anti-inflammatoryrecomme nded rest has f/u with kidney doc coming up as well MATT FLOOD [address] [place], [address], [facility] [place] [facility] 10/13/2023 10:32:57 4 text/htm l Care Management - DiabetesReported bypatient.Self Care:seeing eye doctor yearly for dilated eye exam; checking feet regularly; normal range of home blood sugars (in the low 100s); no side effects from medications Associated Symptoms:symptoms are usually well controlled; no fatigue; no dizziness; no excessive sweating; no headaches; no confusion; no increased thirst; no increased appetite; no increased urination; no blurred vision; no numbness of feet; no calluses on feetCare Management - HypertensionReported bypatient.Self Care:not under emotional stress Severity:symptoms are improving; does not interfere with daily activities Associated Symptoms:no dizziness; no lightheadedness; no chest pain; no shortness of breath; no palpitations; no edema; no calf muscle cramps; no blurred vision; no confusion; no headaches; no fatigue here for rechk of sugars and bp doing well but relates sugars have been a little higher ]reviewed lab in detail relates on occ her bp has been elevated but states it was just after walking on treadmill Nasir Sharp DO [address] [place] [address], [address], [facility] [place] Internal Medicine 12/04/2023 11:46:14 5 text/htm l Care Management - HypertensionReported bypatient.Self Care:not under emotional stress Severity:symptoms are improving; does not interfere with daily activities Associated Symptoms:no dizziness; no lightheadedness; no chest pain; no shortness of breath; no palpitations; no edema; no calf muscle cramps; no blurred vision; no confusion; no headaches; no fatigue here for rechk and doing well overalfatigued at timesno cp no sob Nasir Sharp DO [address] [place] [address], [address], [facility], [place] Internal Medicine 03/09/2024 11:51:10 OBGyn Episode No OBEpisode recorded.
--- OUTSIDE RECORDS SUMMARY | 2024-04-04 09:17 | XMS_ITS | Continuity of Care Document ---
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 Imaging None recorded. Medication Orders None recorded. Patient TargetsNo targets recorded. Patient Instructions Encounter Date Encounter Id Patient Instructions Last Modified By Organization Details Last Modified Time 03/09/2024 [id number] prediabetes: car e instructions Not available 03/09/2024 11:50:12 medicines to mackenzie id with kidney disease: care instructions Not available 03/09/2024 11:50:12 gastroesophageal reflux disease (GERD): care instructions Not available 03/09/2024 11:50:12 Reason for Referral None Reported. Problems Name Problem SNOMED Code Status Onset Date Resolution Date Notes Provider Name and Address Organization Details Recorded Time Paroxysm al atrial fibrilla tion 008660975 Active 2017 Not Available [facility] 2 13:13:32 Ascendin g cholangi tis 28025474 Active 2019 Not Available [facility] 2 13:13:33 Gastroes ophageal reflux disease 656912401 Active 2020 Not Available [facility] 2 13:13:33 Pain of left knee region 7511987267 92863 Active 2021 MATT FLOOD [address] [place], [address], [facility] Internal [facility] 2 16:01:55 Venous stasis ulcer of leg 470277638 Completed 202105/02/2022 Removal Reason: done Nasir Sharp DO [address] [place] [address], [address], [facility] 3 16:39:24 Venous stasis ulcer of leg 286472464 Completed 202105/02/2022 Nasir Sharp DO [address] [place] [address], [address], [facility] 3 16:39:02 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 313182798 Active 2021 MATT FLOOD [address] [place], [address], [facility] 2 16:49:21 Pain in limb 97754133 Active 2021 MATT FLOOD [address] [place], [address], [facility] 2 16:03:29 Acute meniscal tear, medial 576252560 Active 2021 Nasir Sharp DO [address] [place] [address], [address], [facility] 2 14:05:10 Acute meniscal tear, medial 932829877 Active 2021 Nasir Sharp DO [address] [place] [address], [address], [facility] 2 14:05:39 Acute urinary tract infectio n 461883738 Active 2021 MATT FLOOD [address] [place] [address], [address], [facility] 2 10:44:13 Dysuria 32100874 Active 2021 MATT FLOOD [address] [place] [address], [address], [facility] 2 10:44:19 Ulcer of left lower leg 2453466667 6579182 Completed 202105/02/2022 Nasir Sharp DO [address] [place] [address], [address], [facility] 3 16:39:05 Impacted cerumen in left ear 4117479938 953427 Active 2021 MATT FLOOD [address] [place] [address], [address], [facility] 2 10:59:11 Dry cough 62571438 Active 2021 MATT FLOOD [address] [place] [address], [address], [facility] 2 14:11:41 Acute bronchit is 32762444 Active 2021 MATT FLOOD [address] [place] [address], [address], [facility] 2 14:11:51 Osteoart hritis of right knee joint 5094786413 07724 Active 2021 Nasir Sharp DO [address] [place] [address], [address], [facility] 2 15:00:41 Impaired fasting glycemia 931775182 Active 2022 Nasir Sharp DO [address] [place] [address], [address], [facility] 3 16:36:46 Type 2 diabetes mellitus 35349563 Completed 202205/02/2022 Removal Reason: now IFG Nasir Sharp DO [address] [place] [address], [address], [facility] 3 16:40:00 Derangem ent of medial meniscus of right knee 7248283749 13101 Active 2022 Nasir Sharp DO [address] [place] [address], [address], [facility] 3 11:47:58 Benign paroxysm al position al vertigo 567129529 Active 2022 Nasir Sharp DO [address] [place] [address], [address], [facility] 3 11:53:06 Chronic kidney disease stage 3 035261244 Active 2022 Nasir Sharp DO [address] [place] [address], [address], [facility] 3 12:02:30 Acute kidney injury 82054654 Active 2023 MATT FLOOD [address] [place] [address], [address], [facility] 4 14:01:50 Adult nummular atopic dermatit is Active 2023 Nasir Sharp DO [address] [place] [address], [address], [facility] 4 11:47:48 Tinea corporis 14781111 Active 2023 Nasir Sharp DO [address] [place] [address], [address], [facility] 4 11:48:11 Pain of left hip joint 9547268148 Active 2023 MATT FLOOD [address] [place] [address], [address], [facility] 4 10:23:56 Trochant ayla bursitis of left hip 0012576449 Active 2023 MATT FLOOD [address] [place] [address], [address], [facility] 4 10:24:18 Subclini omid hypothyr oidism 92404311 Active 2024 Nasir Sharp DO [address] [place] [address], [address], [facility] 5 11:49:19 Thyroid stimulat ing hormone level above referenc e range 608132638 Active 2024 Nasir Sharp DO [address] [place] [address], [address], [facility] 5 11:50:01 Type 2 diabetes mellitus 23621957 Completed 201705/02/2022 Removal Reason: she has been keeping the A1c level in the region for over a year and so she is no longer an active diabetic Nasir Sharp DO [address] [place] [address], [address], [facility] 3 16:40:00 Carpal tunnel syndrome of right wrist 3043041225 06983 Active 2017 Not Available [facility] 2 13:13:33 Divertic ular disease 929641112 Active 2017 Not Available [facility] 2 13:13:33 Internal hemorrho ids 57906369 Active 2017 Not Available [facility] 2 13:13:33 Hypercho lesterol emia 26660801 Active 2017 Not Available [facility] 2 13:13:33 Osteoart hritis 155304865 Active 2017 C-spine Not Available [facility] 2 13:13:33 Osteoart hritis of knee 649818646 Active 2017 left knee Not Available [facility] 2 13:13:33 Tear of meniscus of knee 853599074 Active 2017 Not Available [facility] 2 13:13:33 Edema of lower extremit y 881517110 Active 2017 Not Available [facility] 2 13:13:33 Hyperten sive disorder 58420217 Active 2017 Not Available [facility] 2 13:13:32 History of appendec vickey 515434934 Active 2017 Not Available [facility] 2 13:13:33 Herpes zoster 8429908 Active 2017 Not Available [facility] 2 13:13:33 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 Please review these documents and add these problems to the patient's chart manually as needed. Problem Notes None recorded. Procedures Surgical History Date Name Laterality Status Provider Name and Address Organization Details Recorded Time 023 Corticosteroid Injection completed Nasir Sharp DO [address] [place] [address], [address], [facility] 09/02/2022 11:12:36 022 Corticosteroid Injection completed Nasir Sharp DO [address] [place] [address], [address], [facility] 01/27/2022 14:55:18 022 Cerumen Removal completed MATT FLOOD [address] [place] [address], [address], [place] [facility] 09/20/2021 10:59:02 022 WOUND CARE completed MATT FLOOD [address] [place], [address], [facility] 05/29/2021 16:14:50 021 Cerumen Removal completed MATT FLOOD [address] [place], [address], [facility] 04/10/2020 10:45:02 019 Cerumen Removal completed Mary MELITON Nj [address] [place], [address], [facility] 12/08/2018 11:10:22 018 Colonoscopy completed Tanja Zamarripa [facility] 10/26/2017 08:32:27 Appendectomy completed Nasir fang DO [address] [place] [address], [address], [facility] 06/02/2018 08:23:36 Cholecystectomy completed Nasir hayden DO [address] [place] [address], [address], [facility] 06/02/2018 08:23:44 Imaging Results None recorded. Procedure Notes None recorded. Medical Equipment None Reported. Allergies Allergen ID Allergen Name Allergen Category Reaction Reaction Severity Criticality Documentation Date Start Date Code Code System Note Provider Name and Address Organization Details Recorded Time 3899 prednison e medicatio n flushing Not available Not available 07/15/2019 8640 RxNorm Nasir Sharp DO [address] [place] [address], [address], [facility] 0 11:46:04 5793 colchicin e medicatio n diarrhea moderate Not available 07/15/2021 2683 RxNorm MATT FLOOD [address] [place], [address], [facility] 2 15:14:36 Medications Name Sig Start Date [...] n 0.3 %-dexamet hasone 0.1 % eye drops,[facility] 06/19 completed Not Available Not Available Not [...] Not Available No t Available Fluzone High-Dose (PF) 180 mcg/0.5 mL intramusc ular syringe [...] Updated DateTime 5 163.83 cm 27.9 kg/m2 78837.7 4 g 73 /min 95 % 95 % 142 mm[Hg] 70 mm[Hg] Felicitas Beckett [facility] Internal Medicine 5 11:28:44 Social History Question Answer Notes LastModified by Organizat ion Details LastModified Time Tobacco Smoking Status Former Smoker Not Available [facility] 12/13/2019 03:36:24 What Was The Date Of Your Most Recent Tobacco Screening? 12/04/2023 [email or web address] Information not available 12/04/2023 How Many Years Have You Smoked Tobacco? 32 [id number] Information not available 12/13/2019 Do You Or Have You Ever Used Any Other Forms Of Tobacco Or Nicotine? No [email or web address] Information not available 08/27/2022 Sex: Unknown Functional [...] quadrivalent, preservative 11/08/19 18 completed Not Available [facility] 10/31/2020 18:30:14 Influenza, split virus, quadrivalent, preservative 03/06/19 22 completed Nasir Sharp, DO [address] [facility], [place], [address], [facility] 03/08/2021 08:24:01 COVID-19, mRNA, LNP-S, PF, 30 mcg/0.3 mL dose 11/25/19 21 completed Nasir Sharp DO [address] [place] [address], [place], [address], [facility] 04/24/2021 11:06:39 pneumococcal polysaccharide PPV23 02/15/19 19 completed Not Available [facility] 10/31/2020 18:30:14 zoster live 08/17/19 19 completed Not Available [facility] 10/31/2020 18:30:14 Influenza, split virus, quadrivalent, preservative 10/23/19 19 completed Not Available [facility] 10/31/2020 18:30:14 zoster live 11/10/19 12 completed Not Available [facility] 10/31/2020 18:30:14 Pneumococcal conjugate PCV 13 11/22/19 17 completed Not Available [facility] 10/31/2020 18:30:14 pneumococcal polysaccharide PPV23 11/15/19 13 completed Not Available [facility] 10/31/2020 18:30:14 zoster, unspecified formulation 10/23/19 19 completed Not Available [facility] 10/31/2020 18:30:14 Influenza, split virus, quadrivalent, preservative 10/18/19 20 completed Not Available [facility] 10/31/2020 18:30:14 COVID-19, mRNA, LNP-S, PF, 30 mcg/0.3 mL dose 04/29/19 21 completed Not Available [facility] 10/31/2020 18:30:14 COVID-19, mRNA, LNP-S, PF, 30 mcg/0.3 mL dose 05/20/19 21 completed Not Available [facility] 10/31/2020 18:30:14 Past Encounters Encounter ID Performer Location Encounter Start Date Encounter Closed Date Diagnosis/Indication Diagnosis SNOMED-CT Code Diagnosis ICD10 Code Diagnosis Note [id number] DO Sydney Moss [facility] [address] [facility] [address] 03/09/2024 11:21:51 03/09/2024 12:17:44 Chronic kidney disease stage 3 501770711 N18.32 stable and has gfr at 34 was 38 and unchanged essentiall y Hypertensive disorder 38 912759 I10 bps are excellent at home as described rechk in 3 rozina need to [facility] LDL [facility] from last january and is awesome Impaired f asting glycemia 447318483 R73.01 she is no longer a active diabetic with her a1c running in the high 5's she will cont to chka1c is 6.1doing well no issues Gastroesop hageal reflux disease 999253936 K21.9 will go back on prilosec has new rx orderd Thyroid st imulating hormone level above reference range 109939136 R94.6 tsh is sl high but not enough to be of any significan ce Health Concerns Section Related Observation LastModified by Organization Detai ls LastModified Time None Recorded Concern Status LastModified by Organization Details LastModified Time None Recorded Payers Encounter Date Sequence Insurance Name Policy Number Policy Juarez Covered Member ID Juarez Member ID Guarantor Name 03/09/2024 1 [facility]: MEDICARE HMO BLUE (MEDICARE REPLACEMENT HMO) [id number] Flori Mack [id number] Flori Mack Notes Date Note Type Note Provider Name and Address Organization Details Recorded Time 5 text/htm l Care Management - HypertensionReported bypatient.Self Care:not under emotional stress Severity:symptoms are improving; does not interfere with daily activities Associated Symptoms:no dizziness; no lightheadedness; no chest pain; no shortness of breath; no palpitations; no edema; no calf muscle cramps; no blurred vision; no confusion; no headaches; no fatigue here for rechk and doing well overalfatigued at timesno cp no sob Nasir Sharp, DO [address] [facility], [place], [address], [place] [facility] 03/09/2024 11:51:10 OBGyn Episode No OBEpisode recorded.
[2024-04-04 13:52] LABS: MANUAL DIFF FLAG NO
[2024-04-04 14:01] LABS: Basophils Percent Auto 0.7 % (0-2); Eosinophils Absolute Auto 0.1 X10*3/uL (0.0-0.4); Hematocrit 48.2 % (37.0-47.0); Hemoglobin 15.6 g/dl (12.0-16.0); Imm Gran Abs Auto 0.01 X10*3/uL (0.00-0.03); Imm Gran Pct Auto 0.2 % (0.0-0.4); Lymphocytes Percent Auto 17.7 % (20-40); Mean Corpuscular HGB Conc 32.4 g/dl (31.0-35.0); Mean Corpuscular Volume 92.7 fL (80.0-98.0); Mean Platelet Volume 10.4 fL (9.4-12.3); Monocytes Absolute Auto 0.6 X10*3/uL (0.1-1.2); Monocytes Percent Auto 10.8 % (2-11); Neutrophils Percent Auto 68.6 % (45-73); Platelet Count 209 X10*3/uL (160-400); Red Cell Distribution Width 13.3 % (11.0-16.0); White Blood Count 5.9 X10*3/uL (4.8-10.8)
[2024-04-04 14:06] LABS: Cholesterol 166 mg/dL (<200); HDL Cholesterol 39 mg/dL (>40); LDL Cholesterol Calculated 91 mg/dL (<100); Triglycerides 181 mg/dL (<150)
[2024-04-04 14:07] LABS: Estimated Average Glucose 126 mg/dL; Total Hemoglobin (HGBA1C) 4044.0666 umol/L
== END 2024-04-04 08:47 | disposition home or self-care (01) ==
LOC: HO.MANLDS 08:46
PROVIDERS: Visit Provider Physician Assistant
DX: R73.01 Impaired fasting glucose (principal); E78.00 Pure hypercholesterolemia, unspecified
CPT/HCPCS: 36415; 80061; 83036; 85025

== ENCOUNTER 2024-06-10 08:24 | Outpatient (REF) | payer MEDICARE, SELFPAY ==
--- OUTSIDE RECORDS SUMMARY | 2024-06-10 08:45 | XMS_ITS | Encounter Summary ---
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 [address] [place] [phone] Mohit Kennedy MD [address] [place] [address] [place] [address] documented as of this encounter Visit Diagnoses Not on filedocumented in this encounter Care Teams Recreation Attendant Relationship Specialty Start Date End Date Nasir Nevarez DO [address] [place] [address] PCP - General Internal Medicine 08/06/20 documented as of this encounter
--- OUTSIDE RECORDS SUMMARY | 2024-06-10 08:45 | XMS_ITS | Encounter Summary ---
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 [address] documented as of this encounter Visit Diagnoses Not on filedocumented in this encounter Care Teams Geriatric Physician Relationship Specialty Start Date End Date Nasir Nevarez DO [address] [place] [address] PCP - General Internal Medicine 08/06/20 documented as of this encounter
--- OUTSIDE RECORDS SUMMARY | 2024-06-10 08:45 | XMS_ITS | Encounter Summary ---
Author Organization [facility], Address [address] [place] [address] Phone Care Team Providers Care Clinical Technologist Name Role Phone Nasir Nevarez DO Primary Care Provider [phone] Encounter Details Date Type Department Care Team (Late Contact Info) Description 09/29/2022 Documentation Only [facility] [employer] [employer] [address] [place] [address] Mohit Kennedy MD [address] [place] [address] 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 [address] documented as of this encounter Visit Diagnoses Not on filedocumented in this encounter Care Teams Clinical Technologist Relationship Specialty Start Date End Date Nasir Nevarez DO [address] [facility] [place] [address] PCP - General Internal Medicine 08/06/20 documented as of this encounter
--- OUTSIDE RECORDS SUMMARY | 2024-06-10 08:45 | XMS_ITS | Encounter Summary ---
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 [address] documented as of this encounter Visit Diagnoses Not on filedocumented in this encounter Care Teams Journeyman Pipefitter Relationship Specialty Start Date End Date Nasir Nevarez DO [address] [place] [address] PCP - General Internal Medicine 08/06/20 documented as of this encounter
--- OUTSIDE RECORDS SUMMARY | 2024-06-10 08:45 | XMS_ITS | Encounter Summary ---
Author Organization [facility] Address [address] [place] [address] Phone Care Team Providers Care Elementary School Band Director Name Role Phone Nasir Nevarez DO Primary Care Provider [phone] Encounter Details Date Type Department Care Team (Late Contact Info) Description 10/07/2023 Documentation Only [facility] [address] [place] [address] Roberta Bull [address] [place] [phone] Social History Tobacco Use Types Packs/Day [...] Visit [facility] [address] [place] [address] Mohit Kennedy MD [address] [place] [address] [place] [address] documented as of this encounter Visit Diagnoses Not on filedocumented in this encounter Care Teams Elementary School Band Director Relationship Specialty Start Date End Date Nasir Nevarez DO [address] [place] [address] PCP - General Internal Medicine 08/06/20 documented as of this encounter
--- OUTSIDE RECORDS SUMMARY | 2024-06-10 08:45 | XMS_ITS | Encounter Summary ---
Author Organization [facility] [place], Address [address] [place] [address] Phone Care Team Providers Care Sales Training Manager Name Role Phone Nasir Nevarez DO Primary Care Provider [phone] Encounter Details Date Type Department Care Team (Late Contact Info) Description 09/29/2022 Documentation Only [facility] [address] [place] [address] Mohit Kennedy MD [address] [place] [address] 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 [address] documented as of this encounter Visit Diagnoses Not on filedocumented in this encounter Care Teams Sales Training Manager Relationship Specialty Start Date End Date Nasir Nevarez DO [address] [facility] [place] [address] PCP - General Internal Medicine 08/06/20 documented as of this encounter
--- OUTSIDE RECORDS SUMMARY | 2024-06-10 08:45 | XMS_ITS | Encounter Summary ---
Author Organization [facility], Address [address] [place] [address] Phone Care Team Providers Care Superintendent [employer] Name Role Phone Nasir Nevarez DO Primary Care Provider [phone] Encounter Details Date Type Department Care Team (Late Contact Info) Description 09/30/2022 Documentation Only [facility] [address] [place] [address] Mohit Kennedy MD [address] [place] [address] 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 [address] documented as of this encounter Visit Diagnoses Not on filedocumented in this encounter Care Teams Superintendent Oil [employer] Drilling Relationship Specialty Start Date End Date Nasir Nevarez DO [address] [facility] [place] [address] PCP - General Internal Medicine 08/06/20 documented as of this encounter
--- OUTSIDE RECORDS SUMMARY | 2024-06-10 08:46 | XMS_ITS | Clinical Summary ---
Author Organization [facility], Address [address] [place] [phone] Phone Care Team Providers Care Personal Lines Advisor Name Role Phone Nasir Nevarez DO Primary Care Provider [phone] Allergies Active Allergy Reactions Criticality Noted Date [...] today cont basal bolus insulin Hypercholesterolemia 2017 Encounters Date Type Department Care Team Description 04/26/2024 Telephone [facility], [address] [place] [address] Kamini Olvera from Last 3 Months Immunizations Immunization Administration Dates Next Due Influenza (IM) Preservative [...] Years Used Date Smoking Tobacco: Former Cigarettes 1 330 - 1986 Tobacco Cessation:Counseling Given: Not Answered Alcohol [...] 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 [id number] Health Maintenance Due Date Last Done Comments Hepatitis B Vaccine (1 of 3 - Risk 3-dose series) 2003 Diabetes: Hemoglobin A1C 08/08/2020 Diabetes: Ophthalmology Exam 08/08/2020 Diabetes: Pedal Pulse Checked 08/08/2020 Diabetes: Sensory Foot Exam 08/08/2020 Diabetes: Visual Foot Exam 08/08/2020 Influenza Vaccine (Season Ended) 2024 03/06/2021, 03/06/2021, 10/18/2019, Additional history exists Pneumococcal Vaccine: 50+ Years Completed 02/15/2018, 02/15/2018, 11/21/2016, Additional history exists Insurance [facility] Care Teams Personal Lines Advisor Relationship Specialty Start Date End Date Nasir Nevarez DO [address] [facility] [place] [address] PCP - General Internal Medicine 08/06/20
--- OUTSIDE RECORDS SUMMARY | 2024-06-10 08:46 | XMS_ITS | Data Portability ---
Author Organization [facility] Address [address] [place] [address] Assessment Encounter Date Assessment Date Assessment LastModified by Organization Details LastModified Time 09/02/2023 09/02/2023 [id number] [place] [id number] (RESEARCHER) MDM MODERATE MUST MEET 2 OUT OF [...] COVERED Not available 09/02/2023 11:47:07 03/09/2024 03/09/2024 [id number] [place] [id number] (RESEARCHER) MDM MODERATE MUST MEET 2 OUT OF [...] Time Details Appointments FOLLOW UP 15 2024 11:15A M DR SHARP Not available Not available Not available MEDICARE ANNUAL WELLNESS 2024 11:00A M DR SHARP Not available Not available Not available Lab None recorded. Referral None recorded. Procedures None recorded. Surgeries None recorded. Imaging None recorded. Medication Orders celecoxib 200 mg capsule 2023 [facility]/Pharmacy #[id number], [address] [place], [address], 10/13/2023 10:26:57 clotrimaz ole-betam ethasone 1 %-0.05 % topical cream 2023 024 [facility]/Pharmacy #[id number], [address] [place], [address], 09/02/2023 11:49:27 Patient TargetsNo targets recorded. Patient Instructions Encounter Date Encounter Id Patient Instructions Last Modified By Organization Details Last Modified Time 09/02/2023 [id number] prediabetes: car e instructions Not available 09/02/2023 11:47:09 leg and ankle ed marquis: care instructions Not available 09/02/2023 11:47:09 medicines to mackenzie id with kidney disease: care instructions Not available 09/02/2023 11:47:09 12/04/2023 [id number] medicines to mackenzie id with kidney disease: care instructions Not available 12/04/2023 11:45:05 pulse oximetry* Not available 12/04/2023 11:45:05 03/09/2024 [id number] prediabetes: car e instructions Not available 03/09/2024 11:50:12 medicines to mackenzie id with kidney disease: care instructions Not available 03/09/2024 11:50:12 gastroesophageal reflux disease (GERD): care instructions Not available 03/09/2024 11:50:12 Reason for Referral None Reported. Results Created Date Observation Date Name Description Value Unit Range Abnormal Flag Note LastModifiedBy Organization Detail LastModifiedTime 12/04/1912/04/2023 pulse oxime try* Result 98% Not Available [facility] Internal Medicine [address], [place], [address], 11/11/2023 15:28:29 10/26/19 24 10/26/2023 MAMMO , scree hardik, digit al, bilat eral No observ ation record ed. [address], [place], [address], 12/04/2023 11:39:28 Result Notes None recorded. Problems Name Problem SNOMED Code Status Onset Date Resolution Date Notes Provider Name and Address Organization Details Recorded Time Paroxysm al atrial fibrilla tion 954565133 Active 2017 Not Available [facility] 2 13:13:32 Ascendin g cholangi tis 87046751 Active 2019 Not Available [facility] 2 13:13:33 Gastroes ophageal reflux disease 016597334 Active 2020 Not Available [facility] 2 13:13:33 Pain of left knee region 2339899236 50912 Active 2021 MATT FLOOD [address] [place], [address], [facility] 2 16:01:55 Venous stasis ulcer of leg 792525903 Completed 202105/02/2022 Removal Reason: done Nasir Sharp DO [address] [place], [address], [facility] 3 16:39:24 Venous stasis ulcer of leg 430802349 Completed 202105/02/2022 Nasir Sharp DO [address] [place], [address], 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 2 16:49:21 Pain in limb 68328658 Active 2021 MATT FLOOD [address] [place] [address], [address], [facility] 2 16:03:29 Acute meniscal tear, medial 648449347 Active 2021 Nasir Sharp DO [address] [place] [address], [address], [facility] 2 14:05:10 Acute meniscal tear, medial 587888663 Active 2021 Nasir Sharp DO [address] [place] [address], [address], [facility] 2 14:05:39 Acute urinary tract infectio n 669048117 Active 2021 MATT FLOOD [address] [place] [address], [address], [facility] 2 10:44:13 Dysuria 20031086 Active 2021 MATT FLOOD [address] [place] [address], [address], [facility] 2 10:44:19 Ulcer of left lower leg 6707984851 1368005 Completed 202105/02/2022 Nasir Sharp DO [address] [place] [address], [address], [facility] 3 16:39:05 Impacted cerumen in left ear 4653745801 450936 Active 2021 MATT FLOOD [address] [place] [address], [address], [facility] 2 10:59:11 Dry cough 58347270 Active 2021 MATT FLOOD [address] [place] [address], [address], [facility] 2 14:11:41 Acute bronchit is 55332594 Active 2021 MATT FLOOD [address] [place] [address], [address], [facility] 2 14:11:51 Osteoart hritis of right knee joint 6937592848 14488 Active 2021 Nasir Sharp DO [address] [place] [address], [address], [facility] 2 15:00:41 Impaired fasting glycemia 269571883 Active 2022 Nasir Sharp DO [address] [place] [address], [address], [facility] 3 16:36:46 Type 2 diabetes mellitus 10568869 Completed 202205/02/2022 Removal Reason: now IFG Nasir Sharp DO [address] [place] [address], [address], [facility] 5 21:49:31 Derangem ent of medial meniscus of right knee 7697782731 53457 Active 2022 Nasir Sharp DO [address] [place] [address], [address], [facility] 3 11:47:58 Benign paroxysm al position al vertigo 933739040 Active 2022 Nasir Sharp DO [address] [place] [address], [address], [facility] 3 11:53:06 Chronic kidney disease stage 3 667304714 Active 2022 Nasir Sharp DO [address] [place] [address], [address], [facility] 3 12:02:30 Acute kidney injury 09926714 Active 2023 MATT FLOOD [address] [place] [address], [address], [facility] 4 14:01:50 Adult nummular atopic dermatit is Active 2023 Nasir Sharp DO [address] [place] [address], [address], [facility] 4 11:47:48 Tinea corporis 18065929 Active 2023 Nasir Sharp DO [address] [place] [address], [address], [facility] 4 11:48:11 Pain of left hip joint 0740746466 08956 Active 2023 MATT FLOOD [address] [place] [address], [address], [facility] 4 10:23:56 Trochant ayla bursitis of left hip 2147375026 40608 Active 2023 MATT FLOOD [address] [place] [address], [address], [facility] 4 10:24:18 Subclini omid hypothyr oidism 01072379 Active 2024 Nasir Sharp DO [address] [place] [address], [address], [facility] 5 11:49:19 Thyroid stimulat ing hormone level above referenc e range 563951582 Active 2024 Nasir Sharp DO [address] [place] [address], [address], [facility] 5 11:50:01 Type 2 diabetes mellitus 50141745 Active 2024 Nasir Sharp DO [address] [place] [address], [address], [facility] 5 21:49:31 Type 2 diabetes mellitus 34721957 Completed 201705/02/2022 Removal Reason: she has been keeping the A1c level in the [address] [place] [address] for over a year and so she is no longer an active diabetic Nasir Sharp DO [address] [place], [address], [facility] 5 21:49:31 Carpal tunnel syndrome of right wrist 9953239934 10122 Active 2017 Not Available [facility] 2 13:13:33 Divertic ular disease 461492212 Active 2017 Not Available [facility] 2 13:13:33 Internal hemorrho ids 02389884 Active 2017 Not Available [facility] 2 13:13:33 Hypercho lesterol emia 48317882 Active 2017 Not Available [facility] 2 13:13:33 Osteoart hritis 007222530 Active 2017 C-spine Not Available [facility] 2 13:13:33 Osteoart hritis of knee 288738172 Active 2017 left knee Not Available [facility] 2 13:13:33 Tear of meniscus of knee 906819543 Active 2017 Not Available [facility] 2 13:13:33 Edema of lower extremit y 634938770 Active 2017 Not Available [facility] 2 13:13:33 Hyperten sive disorder 92723209 Active 2017 Not Available [facility] 2 13:13:32 History of appendec vickey 436817282 Active 2017 Not Available [facility] 2 13:13:33 Herpes zoster 8008772 Active 2017 Not Available [facility] 2 13:13:33 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 Please review these documents and add these problems to the patient's chart manually as needed. Problem Notes None recorded. Procedures Surgical History Date Name Laterality Status Provider Name and Address Organization Details Recorded Time 023 Corticosteroid Injection completed Nasir Sharp DO [address] [place] [address], [address], [facility] 09/02/2022 11:12:36 022 Corticosteroid Injection completed Nasir Sharp DO [address] [place] [address], [address], [facility] 01/27/2022 14:55:18 022 Cerumen Removal completed MATT FLOOD [address] [place] [address], [address], [facility] 09/20/2021 10:59:02 022 WOUND CARE completed MATT FLOOD [address] [place] [address], [address], [facility] 05/29/2021 16:14:50 021 Cerumen Removal completed MATT FLOOD [address] [place] [address], [address], [facility] 04/10/2020 10:45:02 019 Cerumen Removal completed MELITON Lao [address] [place] [address], [address], [facility] 12/08/2018 11:10:22 018 Colonoscopy completed Tanja Zamarripa [facility] 10/26/2017 08:32:27 Appendectomy completed Nasir fang DO [address] [place] [address], [address], [facility] 06/02/2018 08:23:36 Cholecystectomy completed Nasir hayden DO [address] [place] [address], [address], [facility] 06/02/2018 08:23:44 Imaging Results Imaging Date Name Status LastModified by Organiz ation Details LastModified Time 10/26/2023 MAMMO, screening, digital, bilateral completed [facility] [address] [facility], [place], [address], 12/04/2023 11:39:28 Procedure Notes None recorded. Medical Equipment None Reported. Allergies Allergen ID Allergen Name Allergen Category Reaction Reaction Severity Criticality Documentation Date Start Date Code Code System Note Provider Name and Address Organization Details Recorded Time 3899 prednison e medicatio n flushing Not available Not available 07/15/2019 8640 RxNorm Nasir Sharp DO [address] [place], [address], [facility] 0 11:46:04 5793 colchicin e medicatio n diarrhea moderate Not available 07/15/2021 2683 RxNorm MATT FLOOD [address] [place], [address], [facility] 2 15:14:36 Medications Name Sig [...] 24 hr TAKE 1 TABLET EVERY EVENING 2024 active Not Available Not Available Not Avai lable azithromy lashell 250 mg tablet TAKE 2 [...] test strips USE TO CHECK BLOOD SUGARS TWICE DAILY. DX E11.9 2024 active DX E11.9 Not Available Not Available Not Avai lable Eliquis 5 mg tablet TAKE 1 TABLET [...] Updated DateTime 4 163.83 cm 27 kg/m2 55998.7 8 g 81 /min 99 % 99 % 150 mm[Hg] 70 mm[Hg] Felicitas [facility] 4 13:50:22 Date Recorded Body height Body mass index (BMI) Body weight Heart rate Oxygen saturation Oxygen saturation in Arterial blood by Pulse oximetry Systolic blood pressure Diastolic blood pressure Provider Name and Address Organization Details Last Updated DateTime 4 163.83 cm 27.2 kg/m2 11345.3 7 g 76 /min 98 % 98 % 140 mm[Hg] 70 mm[Hg] Felicitas Beckett [facility] 4 11:31:59 Date Recorded Body height Body mass index (BMI) Body weight Heart rate Oxygen saturation Oxygen saturation in Arterial blood by Pulse oximetry Systolic blood pressure Diastolic blood pressure Provider Name and Address Organization Details Last Updated DateTime 4 163.83 cm 28.4 kg/m2 48765.6 g 72 /min 98 % 98 % 144 mm[Hg] 80 mm[Hg] Dari Carmona [facility] 4 10:04:50 Date Recorded Body height Body mass index (BMI) Body weight Heart rate Oxygen saturation Oxygen saturation in Arterial blood by Pulse oximetry Provider Name and Address Organization Details Last Updated DateTime 4 163.83 cm 28.2 kg/m2 24760.2 9 g 66 /min 98 % 98 % Jin Kim [facility] 4 11:19:58 Date Recorded Systolic blood pressure Diastolic blood pressure Provider Name and Address Organization Details Last Updated DateTime 12/04/2023 139 mm[Hg] 80 mm[Hg] Nasir Sharp, DO [address] [place] [address], [place], [address], [facility] 12/04/2023 11:37:57 Date Recorded Body height Body mass index (BMI) Body weight Heart rate Oxygen saturation Oxygen saturation in Arterial blood by Pulse oximetry Systolic blood pressure Diastolic blood pressure Provider Name and Address Organization Details Last Updated DateTime 5 163.83 cm 27.9 kg/m2 60844.7 4 g 73 /min 95 % 95 % 142 mm[Hg] 70 mm[Hg] Felicitas Beckett [facility] 5 11:28:44 Social History Question Answer Notes LastModified by Organizat ion Details LastModified Time Tobacco Smoking Status Former Smoker Not Available [facility] 12/13/2019 03:36:24 What Was The Date Of Your Most Recent Tobacco Screening? 12/04/2023 [email or web address] Information not available 12/04/2023 How Many Years Have You Smoked Tobacco? 32 [id number] Information not available 12/13/2019 Do You Or Have You Ever Used Any Other Forms Of Tobacco Or Nicotine? No [email or web address] Information not available 08/27/2022 Sex: Unknown Functional [...] quadrivalent, preservative 11/08/19 18 completed Not Available [facility] 10/31/2020 18:30:14 Influenza, split virus, quadrivalent, preservative 03/06/19 22 completed Nasir Sharp DO [address] [place] [address], [address], [facility] 03/08/2021 08:24:01 COVID-19, mRNA, LNP-S, PF, 30 mcg/0.3 mL dose 11/25/19 21 completed Nasir Sharp DO [address] [place] [address], [address], [facility] 04/24/2021 11:06:39 pneumococcal polysaccharide PPV23 02/15/19 19 completed Not Available [facility] 10/31/2020 18:30:14 zoster live 08/17/19 19 completed Not Available [facility] 10/31/2020 18:30:14 Influenza, split virus, quadrivalent, preservative 10/23/19 19 completed Not Available [facility] 10/31/2020 18:30:14 zoster live 11/10/19 12 completed Not Available [facility] 10/31/2020 18:30:14 Pneumococcal conjugate PCV 13 11/22/19 17 completed Not Available [facility] 10/31/2020 18:30:14 pneumococcal polysaccharide PPV23 11/15/19 13 completed Not Available [facility] 10/31/2020 18:30:14 zoster, unspecified formulation 10/23/19 19 completed Not Available [facility] 10/31/2020 18:30:14 Influenza, split virus, quadrivalent, preservative 10/18/19 20 completed Not Available [facility] 10/31/2020 18:30:14 COVID-19, mRNA, LNP-S, PF, 30 mcg/0.3 mL dose 04/29/19 21 completed Not Available [facility] 10/31/2020 18:30:14 COVID-19, mRNA, LNP-S, PF, 30 mcg/0.3 mL dose 05/20/19 21 completed Not Available [facility] 10/31/2020 18:30:14 Past Encounters Encounter ID Performer Location Encounter Start Date Encounter Closed Date Diagnosis/Indication Diagnosis SNOMED-CT Code Diagnosis ICD10 Code Diagnosis Note [id number] Nasir Sharp [facility] [address] [facility] [address] [address] 2017 10:13:51 2017 12:29:45 Hypertensive disorder 24620481 I10 noted bp is elevated need to introduce lisinopril 5 mg rechk in 1-2- mo Type 2 scotty betes mellitus 25023867 E11.9 here for rechk and will need another a1c next month [id number] Nasir Sharp [facility] [address] [facility] [address],[place] [address] 08/05/2017 15:10:39 08/05/2017 16:14:10 Palpitations 33806402 R00.2 EKG Essential hypertension 85099282 I10 stable Type 2 scotty betes mellitus 66749515 E11.9 A1C 7.3 steady History of Malignant melanoma 545138922 Z85.820 up to date dermatolog y [id number] Nasir Sharp [facility] [address] [facility] [address],[place] [address] 08/17/2017 09:16:22 08/17/2017 14:35:47 Paroxysmal atrial fibrillation 572850170 I48.0 Essential hypertension 95045699 I10 stable [id number] Nasir Sharp [facility] [address] [facility] [address] [facility] [place] [address] 11/06/2017 10:14:52 11/06/2017 13:28:48 Hypertensive disorder 17923085 I10 lisinopril 5 mg is well tolerated and is otherwise without issue but af is still present with out accelerate d bp or low bp rechk in 1-2- mo Type 2 scotty betes mellitus 72029427 E11.9 a1c is 7.3 which is sl higher than in past but overall is still stable pt relates is not going for walks or any kind of activity Adult heal th examination 425909441 Z00.01 stable other than AFib Screening for malignant neoplasm of colon 702983220 Z12.11 has had one done recently on oct 24 Screening for osteoporosis 279000625 Z13.820 needs bmd have ordered Screening mammography 24 809784 Z12.31 had this year Paroxysmal atrial fibrillation 508343044 I48.0 will need to increase dose of diltiazem to 180- re chk 1mo Edema of l ower extremity 615176556 R60.0 st]able no issues right now except some tinea on sole and sides of fett told to use lamisil cream [id number] Nasir Sharp [facility] [address] [facility], [place] [address] 12/07/2017 10:32:53 12/07/2017 11:33:51 Paroxysmal atrial fibrillation 290543657 I48.0 continue dose of diltiazem to 180- re chk 3 mo Edema of l ower extremity 098794534 R60.0 st]able no issues right now except some mild swelling on left dorsum of foot Hypertensive disorder 38 571102 I10 lisinopril 5 mg is well tolerated and is otherwise without issue but af is still present with out accelerate d bp or low bp home bp's are excellent rechk in 1-2- mo Type 2 scotty betes mellitus 26460240 E11.9 a1c is 6.8 which is sl better than in past but overall is still stable pt relates is not going for walks or any kind of activity Impacted cerumen 9095889 6 H61.22 use debrox for several days then come in for irrigation [id number] Nasir Sharp DO [facility] [address] [facility],[place] [address] 12/14/2017 10:38:30 12/14/2017 12:37:48 Impacted cerumen of bilateral ears 9360471999 246049 H61.23 cleared with currette Dysuria 26798083 R30.0 [id number] Nasir Sharp [facility] [address] [facility], [address] [address] 02/12/2018 09:51:26 02/12/2018 14:09:09 Paroxysmal atrial fibrillation 685657435 I48.0 continue dose of diltiazem to 180- re chk 3 mo seen recently by cardiology which maintained current treatment Type 2 scotty betes mellitus 05913050 E11.9 a1c is 7.0 which is sl worse than in past but overall is still stable pt relates is not going for walks or any kind of activity microalb was neg Hypertensive disorder 38 086710 I10 lisinopril 5 mg is well tolerated and is otherwise without issue but af is still present with out accelerate d bp or low bp home bp's are excellent rechk in 3 mo cholestero l reviewed LDL 44 Edema of l ower extremity 358659475 R60.0 noted edema of 1+ bilat noted pain in bunions [id number] [facility] [address] [facility] [address],[place] [address] 04/13/2018 10:03:03 04/13/2018 12:07:17 Pain in right knee 3171519980 45349 M25.561 explained probably won't be diagnostic Paroxysmal atrial fibrillation 801011593 I48.0 current NSR Hypertensive disorder 38 420307 I10 stable Type 2 scotty betes mellitus 50554848 E11.40 has current lab slips to follow [id number] Nasir Sharp [facility] [address] [facility],[place] [address] 05/19/2018 10:18:07 05/19/2018 10:46:47 Adult health examination 413947176 Z00.00 stable other than AFib Screening for cardiovascular system disease 031157558 Z13.6 will order for next fall Screening for malignant neoplasm of colon 489178910 Z12.11 has had one done recently on oct 24 Screening for osteoporosis 008315940 Z13.820 already done Screening mammography 24 503843 Z12.31 is set for august appt Paroxysmal atrial fibrillation 236706659 I48.0 continue dose of diltiazem to 180- re chk 3 mo and metoprolol also is good dose seen recently by cardiology which maintained current treatment Edema of l ower extremity 277842341 R60.0 no edema !!!! Hypertensive disorder 38 396583 I10 lisinopril 5 mg is well tolerated and is otherwise without issue but af is still present with out accelerate d bp or low bp home bp's are excellent rechk in 3 mo cholestero l reviewed LDL 44 from last january Type 2 scotty betes mellitus 63983703 E11.9 a1c is 7.3 which is sl worse than in past but overall is still stable pt relates is not going for walks or any kind of activity microalb was neg the last labwork in jan Nasir Sharp DO [facility] [address] [facility], [place] [address] 09/01/2018 10:23:50 09/01/2018 11:26:36 Paroxysmal atrial fibrillation 664537865 I48.0 continue dose of diltiazem to 180- re chk 3 mo and metoprolol also is good dose seen recently by cardiology which maintained current treatment Hypertensive disorder 38 486422 I10 lisinopril 5 mg is well tolerated and is otherwise without issue but af is still present with out accelerate d bp or low bp home bp's are excellent rechk in 3 mo cholestero l reviewed LDL 44 from last january Type 2 scotty betes mellitus 48542679 E11.9 a1c is 7.0 which is sl better than in past but overall is still stable pt relates is not going for walks or any kind of activity microalb was neg the last labwork in jan Edema of l ower extremity 052107839 R60.0 trace edema bilat Hypercholesterolemia 136 75655 E78.00 LDL 40!!!! 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 gastritis/ esophagiti s Vomiting 407825372 R11.1 0 ? gastroente ritis Paroxysmal atrial fibrillation 832087140 I48.0 [id number] Nasir Sharp [facility] [address] [facility], [place] [address] 10/25/2018 11:09:28 10/25/2018 11:49:55 Hypertensive disorder 42085405 I10 stable Paroxysmal atrial fibrillation 728013095 I48.0 on eliquis Osteoarthritis 111361304 M19.90 Neck pain 06995919 M54.2 will trial steroid for inflammati on and very cautious use of muscle relaxant aware of drowsiness also do heat with gentle stretching consider pt if treatment fails [id number] Nasir Sharp [facility] [address] [facility],[place] [address] 11/03/2018 15:30:29 11/03/2018 16:32:38 Hypertensive disorder 63892550 I10 stable Paroxysmal atrial fibrillation 116143657 I48.0 on eliquis Type 2 scotty betes mellitus 09813306 E11.65 blood sugars have been less than 200 Dizziness 274397032 R42 none since this morning likely 2/2 rapid HR but will recheck in a couple days go to ER if LOC or sx return Rapid atri al fibrillation 360485882 I48.91 [id number] Nasir Sharp [facility] [address] [facility], [place] [address] 11/05/2018 14:58:01 11/05/2018 15:12:15 Hypertensive disorder 64307439 I10 low end of normal, without orthostati c sx Paroxysmal atrial fibrillation 039386045 I48.0 on eliquis rate controlled with increase in cartia Type 2 scotty betes mellitus 74713412 E11.65 blood sugars have been less than 200 Dizziness 726119819 R42 resolved [id number] Nasir Sharp DO [facility] [address] [facility],[place] [address] 12/06/2018 10:35:56 12/06/2018 11:33:25 Paroxysmal atrial fibrillation 554274826 I48.0 continue dose of diltiazem to 180- re chk 3 mo and metoprolol also is good dose seen recently by cardiology which maintained current treatment Hypercholesterolemia 136 45156 E78.00 LDL 40!!!! fantastic Hypertensive disorder 38 708938 I10 lisinopril 5 mg is well tolerated and is otherwise without issue but af is still present with out accelerate d bp or low bp home bp's are excellent rechk in 3 mo cholestero l reviewed LDL 44 from last january Type 2 scotty betes mellitus 14814764 E11.9 a1c is 7.0 which is sl better than in past but overall is still stable pt relates is not going for walks or any kind of activity microalb was neg the last labwork in jan Edema of l ower extremity 287292418 R60.0 edema bilat has worsened she does not elevate her legs does not wear the support stockings encouraged to do so i would rather not have her on a diuretic if we can avoid this [id number] Nasir Sharp DO [facility] [address] [facility],[place] [address] 12/08/2018 10:38:32 12/08/2018 11:20:48 Impacted cerumen of bilateral ears 9367318713 642904 H61.23 resolved after flush Decreased hearing 405493 001 H91.93 improved after flush Hypertensive disorder 38 270784 I10 low end of normal, [place]ost[place]x [id number] Nasir Sharp DO [facility] [address] [facility],[place] [address] 12/17/2018 14:01:10 12/17/2018 14:23:54 Type 2 diabetes mellitus 52242236 E11.9 a1c is 7.0 which is sl better than in past but overall is still stable pt relates is not going for walks or any kind of activity microalb was neg the last labwork in dec Hypertensive disorder 38 190261 I10 lisinopril 5 mg is well tolerated and is otherwise without issue but af is still present with out accelerate d bp or low bp home bp's are excellent rechk in 3 mo shaka buckner reviewed LDL 44 from last january Edema of l ower extremity 633507224 R60.0 cont with the 20 mg lasix for now and we will wait to see how she does over the next month and see her in feb Paroxysmal atrial fibrillation 944794243 I48.0 continue dose of diltiazem to 180- re chk 3 mo and metoprolol also is good dose seen recently by cardiology which maintained current treatment [id number] DO [facility] [address] [facility],[place] [employer] [address] 03/09/2019 10:48:22 03/09/2019 12:00:45 Paroxysmal atrial fibrillation 166138273 I48.0 continue dose of diltiazem to 180- re chk 3 mo and metoprolol also is good dose seen recently by cardiology which maintained current treatment Hypertensive disorder 38 953313 I10 lisinopril 5 mg is well tolerated and is otherwise without issue but af is still present with out accelerate d bp or low bp home bp's are excellent rechk in 3 mo shaka buckner reviewed LDL 44 from last january 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.9 A1C 7.8 up from 7.6, microalb neg Will start metformin 500 mg if the next test is not improved (may) Foot pain 99685593 M79.6 73 pain in both feet danette left though with pain rad up her left calf but no palp pain to the achilles told her to slow down the treadmill a bit but to continue walking [id number] DO [facility] [address] [facility],[place] [address] 06/24/2019 10:15:12 06/24/2019 10:47:38 Adult health examination 957158137 Z00.01 stable other than AFib Screening for cardiovascular system disease 257565319 Z13.6 will order for next fall Screening for malignant neoplasm of colon 790320889 Z12.11 has had one done recently on oct 24 Screening for osteoporosis 361475340 Z13.820 already done Screening mammography 24 345834 Z12.31 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 2018 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 and pending covid Paroxysmal atrial fibrillation 668831665 I48.0 continue dose of diltiazem to 180- re chk 3 mo and metoprolol also is good dose seen recently by cardiology which maintained current treatment only having occ palpitat or flutter seing cardiology in december Hypertensive disorder 38 937395 I10 lisinopril 5 mg is well tolerated and is otherwise without issue but af is still present with out accelerate d bp or low bp home bp's are excellent rechk in 3 mo cholestero l reviewed LDL 44 from last january Type 2 scotty betes mellitus 18539849 E11.9 A1C 7.0 down from 7.6, microalb neg still not on metformin or any other med told her that need to get below a1c 7 [id number] Nasir Sharp DO [facility] [address] [facility],[place] [address] 07/13/2019 13:55:49 07/13/2019 14:32:49 Gout 71401878 M10.9 will call us on thursday if it isn't better on thursday will first dose of colchicine cannot take prednisone based on past reaction cannot take indomethac in based on use of Eliquis will check uric acid on the 08/02 [id number] Nasir Sharp DO [facility] [address] [facility],[place] [address] 07/15/2019 10:57:29 07/15/2019 11:53:39 Melena 7883949 K92.1 Diarrhea 29751690 R19.7 as long as slowing down we are fine instructed re diet and adequate fluid intake Gout 71073260 M10.9 of the 3rd toe of right foot with improvemen t after cocrys use wish to use pred taper but pt states had flushing prob with pred and doesnt want [id number] Nasir Sharp DO [facility] [address] [facility],[place] [address] 07/19/2019 15:42:45 07/19/2019 16:26:49 Gout 58954239 M10.9 marked improvemen t of her swelling and reddnes and is clinically near resolution will cont conserv care [place] [id number] Nasir Sharp DO [facility] [address] [facility],[place] [address] 10/05/2019 10:57:10 10/05/2019 12:03:44 Paroxysmal atrial fibrillation 467164316 I48.0 continue dose of diltiazem to 180- re chk 3 mo and metoprolol also is good dose seen recently by cardiology which maintained current treatment only having occ palpitat or flutter seing cardiology in december Hypertensive disorder 38 313049 I10 lisinopril 5 mg is well tolerated and is otherwise without issue but af is still present with out accelerate d bp or low bp home bp's are excellent rechk in 3 mo now on 100mg of toprol and is off diltiazem due to edema cholestero l reviewed LDL 44 from last january Type 2 scotty betes mellitus 39299623 E11.9 A1C 7.0 was 7.0 in may and down from 7.6 before that , microalb neg still not on metformin or any other med told her that need to get below a1c 7 [id number] Nasir Sharp DO [facility] [address] [facility],[place] [address] 12/06/2019 15:58:25 12/06/2019 16:24:29 Carpal tunnel syndrome of right wrist 6550511592 44302 G56.01 may be recurrent carpal tunnel due to failed surgery will set her up with specialist and have her evaled Type 2 scotty betes mellitus 99786931 E11.9 A1c has been good, actually been decreasing slowly at each fu her glucose reading at home have also been great been ranging between 120-180s which are great unlikely to be peripheral ly neuropathy because she is not a long time uncontroll ed diabetic as her numbers have been good and well controlled [id number] Nasir Sharp [facility] [address] [facility],[place] [address] 01/09/2020 12:07:33 01/09/2020 16:26:10 Viral gastroenteritis 827388828 A08.4 [id number] Nasir Sharp DO [facility] [address] [facility], [place] [address] 01/23/2020 08:50:26 01/23/2020 15:33:37 Paroxysmal atrial fibrillation 074861050 I48.0 is off the diltiazem and is now controlled with the amiodarone started by cardiol seen recently by cardiology which maintained current treatment only having occ palpitat or flutter seing cardiology in december Hypertensive disorder 38 437322 I10 lisinopril 5 mg is well tolerated and is otherwise without issue but af is still present with out accelerate d bp or low bp home bp's are excellent rechk in 3 mo now on 100mg of toprol and is off diltiazem cholestero l reviewed LDL 44 from last january Ascending cholangitis 26 530495 K83.09 has stabilized after a EGD sphinctero vickey no new symptoms or fever Edema of l ower extremity 616013399 R60.0 must cont to keep legs raised Type 2 scotty betes mellitus 24213407 E11.9 A1Cis pending before was 7.0 was 7.0 in may and down from 7.6 before that , microalb neg still not on metformin or any other med told her that need to get below a1c 7 [id number] Nasir Sharp DO [facility] [address] [facility],[place] [address] 04/06/2020 10:13:43 04/06/2020 11:06:56 Type 2 diabetes mellitus 19656029 E11.9 A1Cis doing good at 6.0!!! before was 7.0 was 7.0 in may and down from 7.6 before that , microalb neg on metformin and is doing good not snacking and overall she has lost 20lbs!!!! Hypertensive disorder 38 925224 I10 lisinopril 5 mg is well tolerated and is otherwise without issue but af is still present with out accelerate d bp or low bp home bp's are excellent rechk in 3 mo now on 100mg of toprol and is off diltiazem shaka buckner reviewed LDL 44 from last january Paroxysmal atrial fibrillation 940098031 I48.0 is off the diltiazem and is now controlled with the amiodarone started by cardiol seen recently by cardiology which maintained current treatment only having occ palpitat or flutter seeing cardiology in april had to be placed on K+ for low levels she is stable and is on eliquis and amiodarone Gastroesop hageal reflux disease 635987569 K21.9 will go back on prilosec has new rx orderd Edema of l ower extremity 379738611 R60.0 must cont to keep legs raised has stabilized on the diuretic furosemide but have had to add K+ [id number] Nasir Sharp [facility] [address] [facility],[place] [address] 04/10/2020 10:33:35 04/10/2020 13:39:36 Impacted cerumen of bilateral ears 4880507984 303656 H61.23 patient ears were irrigated, patient tolerated procedure well TMs were visualized bilaterall y no signs or symptoms of infection hearing improved fu as needed for lavage [id number] Nasir Sharp [facility] [address] [facility],[place] [address] 07/20/2020 14:00:47 07/20/2020 14:46:22 Paroxysmal atrial fibrillation 792881580 I48.0 is off the diltiazem and is now controlled with the amiodarone started by cardiol and still doing great seen recently by cardiology which maintained current treatment only having occ palpitat or flutter seeing cardiology in april she is stable and is on eliquis and amiodarone Hypertensive disorder 38 088668 I10 home bp's are excellent rechk in 3 mo shaka buckner reviewed LDL 44 from last january and is awesome Type 2 scotty betes mellitus 80962408 E11.65 A1Cis doing good at 6.0!!! before was 7.0 was 7.0 in may and down from 7.6 before that , microalb neg on metformin and is doing good not snacking and overall she has lost 20lbs!!!! we will stop the pm metfromin dose Renal insufficiency 5549 33023 N28.9 prob multifacto rial: dm htn dehydratio n, age, lasix she will stop lasix and rechk lab one week [id number] Nasir Sharp [facility] [address] [address] 09/18/2020 10:19:51 09/18/2020 11:01:11 Dysuria 30037251 R30.9 will start on abx and send urine out for culture Acute urin rani tract infection 544251384 N39.0 dipstick indicates UTI [id number] Nasir Sharp [facility] [address],[place] [address] 09/24/2020 14:26:51 09/24/2020 16:07:05 Contact dermatitis 55163288 L25.9 per note, can use topical steriod, aloe and cold compresses if needed [id number] Nasir Sharp [facility] [address] [place] [address] 10/16/2020 13:58:28 10/16/2020 14:26:05 Swelling of lower leg 922728576 R22.41 significan t increase in swelling and color change of the LE, right side distallywi th color change to bluish-pur ple and prominence of varicose veinsdeter ioration of skin around the ankle as well due to fluid f/o [place] r/[place] [id number] Nasir Sharp [facility] [address] [place] [address],[place] [address] 10/26/2020 10:53:23 10/26/2020 16:15:16 Edema of lower extremity 317702206 R60.0 must cont to keep legs raised has stabilized on the diuretic furosemide but have had to add K+ Hypertensive disorder 38 912726 I10 home bp's are excellent rechk in 3 mo shaka buckner reviewed LDL 44 from last january and is awesome Paroxysmal atrial fibrillation 648461777 I48.0 is off the diltiazem and is now controlled with the amiodarone started by cardiol and still doing great seen recently by cardiology which maintained current treatment only having occ palpitat or flutter seeing cardiology in april she is stable and is on eliquis and amiodarone Type 2 scotty betes mellitus 39608749 E11.65 A1Cis doing good at 6.7!!! before was 6.4 and then 6.0 was 7.0, microalb neg on metformin and is doing good not snacking and overall she has lost 20lbs!!!! we will stop the [place] [id number] Nasir Sharp DO [facility] [address] [facility],[place] [address] 01/25/2021 08:34:22 01/25/2021 14:17:47 Hypertensive disorder 83061056 I10 home bp's are excellent rechk in 3 mo shaka buckner reviewed LDL 44 from last january and is awesome Type 2 scotty betes mellitus 07158452 E11.65 A1Cis doing good at 6.2 and in oct was 6.7!!! before was 6.4 and then 6.0 was 7.0, microalb neg on metformin and is doing good only occ snacking and overall she has kept off the 20lbs!!!! we had stop the pm metfromin dose Paroxysmal atrial fibrillation 666681414 I48.0 is off the diltiazem and is off the metoprolol and is on once a day amiodarone now and still doing great seen recently by cardiology which ordered the current treatment only having occ palpitat or flutter seeing cardiology in april she is stable and is on eliquis and amiodarone Edema of l ower extremity 961649202 R60.0 must cont to keep legs raised has stabilized on the diuretic furosemide but have had to add K+and is stable no w will be seeing vascular on feb 26 [id number] Nasir Sharp DO [facility] [address] [facility],[place] [address] 04/24/2021 10:58:04 04/24/2021 16:25:07 Paroxysmal atrial fibrillation 151377944 I48.0 is off the diltiazem and is off the metoprolol and is on once a day amiodarone now and still doing great seen recently by cardiology which ordered the current treatment only having occ palpitat or flutter seeing cardiology in april she is stable and is on eliquis and amiodarone Type 2 scotty betes mellitus 96368239 E11.65 A1Cis doing good at 5.6 6.2 and in oct was 6.7!!! before was 6.4 and then 6.0 was 7.0, microalb neg on metformin and is doing good only occ snacking and overall she has kept off the 20lbs!!!! we had stop the pm metfromin dose Hypertensive disorder 38 110916 I10 bp her is awful high here today home bp's are sl high too rechk in 3 mowas placed on spironolac tone by cardiol for bp will need to reassess when she comes back in cholestero l reviewed LDL 44 from last january and is awesome Urinary incontinence 165 424508 R32 Basal cell carcinoma of skin 443196973 C44.91 noted prob basal or squamous ca of right upper arm Right flank pain 1661154 09 R10.9 mild discomfort like a burning she will let me know if pain increases? renal calculi Abrasion a nd/or friction burn of skin 517304209 T14.8XXA will place tegraderm over lesion with instructio ns rechk in 10 dys [id number] Nasir Sharp, [facility] [address] [facility] [place] [address] 05/10/2021 11:07:23 05/10/2021 15:37:55 Edema of lower extremity 505369233 R60.0 must cont to keep legs raised has stabilized on the diuretic furosemide but have had to add K+and is stable no w so we will hold the spironolac tone as her BUN/CREAT have risen to 36/1.9we will rechk in 1 mo Hypertensive disorder 38 826943 I10 bp her is awful high here today home bp's are sl high too rechk in 3 mohold the spironolac tone by cardiol for bp will need to reassess when she comes back in cholestero l reviewed LDL 44 from last january and is awesome Paroxysmal atrial fibrillation 395286968 I48.0 is off the diltiazem and is off the metoprolol and is on once a day amiodarone now and still doing great seen recently by cardiology which ordered the current treatment only having occ palpitat or flutter seeing cardiology in april she is stable and is on eliquis and amiodarone Type 2 scotty betes mellitus 97273811 E11.65 A1Cis doing good at 5.5 and was 5.6 6.2 and in oct was 6.7!!! before was 6.4 and then 6.0 was 7.0, microalb neg on metformin and is doing good only occ snacking and overall she has kept off the 20lbs!!!! we had stop the pm [place]fromin dose [id number] Nasir Sharp DO [facility] [address] [facility],[place] [address] 05/29/2021 15:43:33 05/29/2021 16:31:18 Pain of left knee region 5217885672 98462 M25.562 will fu with testing, XR and uric acid Venous sta sis ulcer of leg 594253314 I83.028 cleaned and re-dressed in office [id number] Nasir Sharp DO [facility] [address] [facility],[place] [address] 07/15/2021 14:34:08 07/16/2021 08:46:53 Tear of meniscus of knee 425657347 S83.222A seeing ortho at the end of the month Pain of le ft knee region 3994417128 88902 M25.562 given course of oxy for paintramad ol didn't helpallerg ic to pred and colchicine can't take NSAIDsAPAP no relief [id number] Nasir Sharp DO [facility] [address] [facility],[place] [address] 07/24/2021 08:04:48 07/24/2021 15:39:32 Hypertensive disorder 21484597 I10 bp her is awful high here today home bp's are sl high too rechk in 3 mohold the spironolac tone by cardiol for bp will need to reassess when she comes back in [facility] reviewed LDL 44 from last january and is awesome Type 2 scotty betes mellitus 24905510 E11.65 A1Cis doing good at 5.4 5.5 and was 5.6 6.2 and in oct was 6.7!!! bwe will decrease the trulicity to every 2 weeks and rechk in 3 months Acute meni scal tear, medial 508446599 S83.242D never got orginal rx for oxycod [id number] MATT FLOOD [facility] [address] [facility], [place] [address] 09/20/2021 10:30:25 09/20/2021 10:57:24 Acute urinary tract infection 535546153 N39.0 dipstick indicates UTI Dysuria 12324199 R30.0 will start on abx and send urine out for culture Ulcer of l eft lower leg 5748972226 4487013 L97.821 will set up with wound care Impacted c erumen in left ear 8139961908 752764 H61.22 resolved [id number] Nasir Sharp DO [facility] [address] [facility],[place] [address] 10/18/2021 09:47:40 10/18/2021 14:37:36 Dysuria 71337767 R30.0 going on vacation tomorrowwi [place] in appropriat [place] medication s [id number] Nasir Sharp DO [facility] [address] [facility], [place] [address] 11/08/2021 09:57:38 11/08/2021 11:15:42 Paroxysmal atrial fibrillation 913076885 I48.0 only having occ palpitat or flutter seeing cardiology in november for follow up she is stable and is on eliquis and amiodarone Type 2 scotty betes mellitus 40671652 E11.65 A1Cis doing good at 5.6 !! 5.4 5.5 and was 5.6 6.2 and in oct last year was 6.7!!! bwe will hold the trulicity and rechk in 3 months Hypertensive disorder 38 543562 I10 bps are excellent at home as described rechk in 3 mowill need to reassess when she comes back in cholestero l reviewed LDL 44 from last january and is awesome [id number] Nasir Hunter Roque, [facility] [address] [facility] [address],[place] [address] 12/04/2021 10:03:53 12/06/2021 09:06:25 Dry cough 48805211 R05.1 will start on cough syrup Acute bronchitis 5970283 2 J20.8 will start abx [id number] Nasir Hunter Roque [facility] [address] [facility] [address],[place] [address] 01/27/2022 14:10:26 01/27/2022 16:23:52 Type 2 diabetes mellitus 83873798 E11.65 A1Cis doing good at 5.6 !! 5.4 5.5 and was 5.6 6.2 and in oct last year was 6.7!!! bwe will hold the trulicity and rechk in 3 months Hypertensive disorder 38 875933 I10 bps are excellent at home as described rechk in 3 mowill need to reassess when she comes back in cholestero l reviewed LDL 44 from last january and is awesome Hypercholesterolemia 136 79493 E78.00 LDL 40!!!! fantastic Osteoarthr itis of right knee joint 4952624151 42758 M17.11 yolie inj well tolerated [id number] Nasir Hunter Roque, [facility] [address] [facility],[place] [address] 05/02/2022 16:16:07 05/05/2022 08:50:15 Type 2 diabetes mellitus 12258037 E11.65 A1Cis doing good at 5.8 was 5.9 5.6 !! 5.4 5.5doing fantastic she will now be put in a non diabetic category Hypertensive disorder 38 048075 I10 bps are excellent at home as described rechk in 3 mowill need to reassess when she comes back in cholestero l reviewed LDL 44 from last january and is awesome Carpal suzette alec syndrome of right wrist [id number] 15373 G56.01 getting surgery next week Paroxysmal atrial fibrillation 044380200 I48.0 only having occ palpitat or flutter seeing cardiology in november for follow up she is stable and is on eliquis and amiodarone Venous sta sis ulcer of leg 340207912 I83.028 resolved Ulcer of l eft lower leg [id number] 7404876 L97.821 resolved Impaired f asting glycemia 927064135 R73.01 she is no longer a active diabetic with her a1c running in the high 5's she will cont to [facility] [address] Nasir Sharp [facility] [address] [facility],[place] [address] 08/27/2022 11:13:57 08/27/2022 12:08:00 Hypertensive disorder 97240713 I10 bps are excellent at home as described rechk in 3 mowill need to reassess [facility] 44 from last january and is awesome Impaired f asting glycemia 244948101 R73.01 she is no longer a active diabetic with her a1c running in the high 5's she will cont to [facility] Derangemen t of medial meniscus of right knee [id number] 21520 M23.303 we will have her come back in for a yolie inj Benign par oxysmal positional vertigo 911508896 H81.12 slowly getting better already 45135 Nasir Sharp [facility] [address] [facility],[place] [address] 09/02/2022 10:15:00 09/02/2022 14:39:14 Derangement of medial meniscus of right knee [id number] 61363 M23.303 yolie inj well tolerated 02898 Nasir Sharp [facility] [address] [place] [address] 12/01/2022 11:11:37 12/01/2022 12:27:06 Paroxysmal atrial fibrillation 860325589 I48.0 only having occ palpitat or flutter seeing cardiology in november for follow up she is stable and is on eliquis and amiodarone Hypertensive disorder 38 901975 I10 bps are excellent at home as described rechshahram in 3 mowill need to reassess when she comes back in cholestero l reviewed LDL 44 from last january and is awesome Impaired f asting glycemia 386852202 R73.01 she is no longer a active diabetic with her a1c running in the high 5's she will cont to k Chronic ki dney disease stage 3 238581239 N18.30 stable and has gfr at 38 and unchanged Derangemen t of medial meniscus of right knee 1364006506 60020 M23.303 yolie inj well tolerated Type 2 scotty betes mellitus 53688417 E11.65 A1Cis doing good at 5.8 was 5.9 5.6 !! 5.4 5.5doing fantastic she will now be put in a non diabetic category 860206 Nasir Sharp [facility] [address] [facility] [address] [place] [address] 02/11/2023 08:24:02 02/11/2023 15:45:54 Hypertensive disorder 98499381 I10 bps are excellent at home as described rechk in 3 mochristina need to reassess when she comes back in [facility] reviewed LDL 44 from last january and is awesome Hypercholesterolemia 136 07090 E78.00 LDL 90!!!! fantastic Impaired f asting glycemia 244312762 R73.01 she is no longer a active diabetic with her a1c running in the high 5's she will cont to kshe is now 5.8 Edema of l ower extremity 139359035 R60.0 must cont to keep legs raised has stabilized on the diuretic furosemide but have had to add K+and is stable no w so we will hold the spironolac tone as her BUN/CREAT have risen to 36/1.9we will rechk in 1 mo Paroxysmal atrial fibrillation 891102693 I48.0 only having occ palpitat or flutter seeing cardiology in november for follow up she is stable and is on eliquis and amiodarone Type 2 scotty betes mellitus 74165941 E11.65 A1Cis doing good at 5.8 was 5.9 5.6 !! 5.4 5.5doing fantastic she will now be put in a non diabetic category 670046 Nasir [facility] [address] [facility] [address],[place] [address] [place] [address] 05/13/2023 13:39:54 05/13/2023 15:14:20 Paroxysmal atrial fibrillation 987764725 I48.0 only having occ palpitat or flutter seeing cardiology in november for follow up she is stable and is on eliquis and amiodarone Impaired f asting glycemia 720753777 R73.01 she is no longer a active diabetic with her a1c running in the high 5's she will cont to chkshe is now 5.9 was 5.8 Hypercholesterolemia 136 71592 E78.00 LDL 90!!!! fantastic Hypertensive disorder 38 645368 I10 bps are excellent at home as described rechk in 3 mochristina need to reassess when she comes back in [facility] reviewed LDL 44 from last january and is awesome Edema of l ower extremity 409507162 R60.0 must cont to keep legs raised has stabilized on the diuretic furosemide but have had to add K+and is stable no w so we will hold the spironolac tone as her BUN/CREAT have risen to 36/1.9we will rechk in 1 mo Chronic ki dney disease stage 3 528854622 N18.30 stable and has gfr at 34 was 38 and unchanged essentiall y 460308 Nasir Sharp DO [facility] Internal Medicine [address],[place] [address] 09/02/2023 11:27:02 09/04/2023 08:32:49 Chronic kidney disease stage 3 522435172 N18.30 stable and has gfr at 34 was 38 and unchanged essentiall y Edema of l ower extremity 827896799 R60.0 must cont to keep legs raised has stabilized on the diuretic furosemide but have had to add K+and is stable no w so we will hold the spironolac tone as her BUN/CREAT have risen to 36/1.9we will rechk in 1 mo Paroxysmal atrial fibrillation 713141653 I48.0 stable and asymptomat iconly having occ palpitat or flutter seeing cardiology in november for follow up she is stable and is on eliquis and amiodarone Impaired f asting glycemia 040812163 R73.01 she is no longer a active diabetic with her a1c running in the high 5's she will cont to chkshe is still 5.9 was 5.8 Adult numm ular atopic dermatitis 7792399906 L30.0 Tinea corporis 49132625 B35.4 [id number] Nasir Sharp [facility] [address] [facility],[place] [address] 10/13/2023 09:56:55 10/13/2023 11:32:58 Pain of left hip joint 5857476369 70955 M25.552 will monitor Trochanter ic bursitis of left hip 8575817362 25402 M70.62 will trial short course of celebrex for ptmindful of allergies and CKD 676366 Nasir Sharp [facility] [address] [facility],[place] [address] 12/04/2023 11:12:55 12/04/2023 14:22:09 Paroxysmal atrial fibrillation 226195204 I48.0 stable and asymptomat iconly having occ palpitat or flutter seeing cardiology in november for follow up she is stable and is on eliquis and amiodarone Hypertensive disorder 38 002650 I10 bps are excellent at home as described rechk in 3 mowill need to reassess when she comes back in cholestero l reviewed LDL 44 from last january and is awesome Impaired f asting glycemia 856479387 R73.01 she is no longer a active diabetic with her a1c running in the high 5's she will cont to chka1c is 6.1doing well no issues Chronic ki dney disease stage 3 748676935 N18.32 stable and has gfr at 34 was 38 and unchanged essentiall y [id number] Nasir Sharp [facility] [address] [facility] [place] [address] 03/09/2024 11:21:51 03/09/2024 12:17:44 Chronic kidney disease stage 3 696632887 N18.32 stable and has gfr at 34 was 38 and unchanged essentiall y Hypertensive disorder 38 340964 I10 bps are excellent at home as described rechshahram in 3 mowill need to reassess when she comes back in cholestero l reviewed LDL 44 from last january and is awesome Impaired f asting glycemia 457264535 R73.01 she is no longer a active diabetic with her a1c running in the high 5's she will cont to chka1c is 6.1doing well no issues Gastroesop hageal reflux disease 992654591 K21.9 will go back on prilosec has new rx orderd Thyroid st imulating hormone level above reference range 450176292 R94.6 tsh is sl high but not enough to be of any significan ce Health Concerns Section Related Observation LastModified by Organization Detai ls LastModified Time None Recorded Concern Status LastModified by Organization Details LastModified Time None Recorded Advance Directives Directive None Recorded Payers Encounter Date Sequence Insurance Name Policy Number Policy Juarez Covered Member ID Juarez Member ID Guarantor Name 05/13/2023 1 [place] HMO) [id number] Flori A Martina [id number] Flori Martina 09/02/2023 1 [place]MO) [id number] Flori A Martina [id number] Flori Martina 10/13/2023 1 [place]MO) [id number] Flori A Martina [id number] Flori Martina 12/04/2023 1 [place] HMO) [id number] Flori A Martina [id number] Flori Martina 03/09/2024 1 [place] HMO) [id number] Flori A Martina [id number] Flori Martina Notes Date Note Type [...] issuesdenies any sobappetite oksleep is fair Nasir Sharp DO [address] [place] [address], [address], [facility] 05/13/2023 14:17:31 4 text/htm l [...] and also swollen at times sore Nasir Sharp DO [address] [place] [address], [address], [facility] 09/02/2023 11:49:47 4 text/htm l c/o leg pain the patient is having left knee pain since injuring her left kneewas on the treadmill, started getting knee pain, got off after a little whileknee pain improved but started getting hip painprobably from gait changewill set up with anti-inflammatoryrecomme nded rest has f/u with kidney doc coming up as well MATT FLOOD [address] [place], [address], [facility] 10/13/2023 10:32:57 4 text/htm l [...] after walking on treadmill Nasir Sharp DO [address] [place] [address], [phone], [facility] 12/04/2023 11:46:14 5 text/htm l [...] timesno cp no sob Nasir Sharp DO [address] [place] [address], [phone], [facility] 03/09/2024 11:51:10 OBGyn Episode No OBEpisode recorded.
[2024-06-10 13:25] LABS: MANUAL DIFF FLAG NO
[2024-06-10 13:46] LABS: Basophils Percent Auto 0.5 % (0-2); Eosinophils Absolute Auto 0.2 X10*3/uL (0.0-0.4); Eosinophils Percent Auto 3.6 % (0-4); Hematocrit 46.5 % (37.0-47.0); Imm Gran Abs Auto 0.02 X10*3/uL (0.00-0.03); Imm Gran Pct Auto 0.5 % (0.0-0.4); Lymphocytes Absolute Auto 1.1 X10*3/uL (1.2-4.9); Mean Corpuscular HGB Conc 32.3 g/dl (31.0-35.0); Mean Corpuscular Hemoglobin 29.9 pg (27.0-33.0); Mean Corpuscular Volume 92.6 fL (80.0-98.0); Mean Platelet Volume 10.2 fL (9.4-12.3); Monocytes Absolute Auto 0.4 X10*3/uL (0.1-1.2); Monocytes Percent Auto 9.3 % (2-11); Neutrophils Absolute Auto 2.5 x10*3/uL (2.0-8.3); Neutrophils Percent Auto 60.1 % (45-73); Platelet Count 203 X10*3/uL (160-400); Red Blood Count 5.02 X10*6/uL (4.20-5.50); Red Cell Distribution Width 13.7 % (11.0-16.0); White Blood Count 4.2 X10*3/uL (4.8-10.8)
[2024-06-10 13:55] LABS: Alanine Aminotransferase 14 U/L (0-31); Albumin Level 4.2 g/dL (3.5-5.0); Alkaline Phosphatase 93 U/L (39-117); Anion Gap 13 (12-20); Aspartate Amino Transferase 28 U/L (5-31); Bilirubin Total 0.9 mg/dL (0.0-1.0); Blood Urea Nitrogen 25 mg/dL (9-16); Calcium 9.9 mg/dL (8.4-10.2); Carbon Dioxide 28 mmol/L (22-29); Chloride 110 mmol/L (96-108); Cholesterol 173 mg/dL (<200); Estimated Glomerular Filt Rate 38; Glucose Random 128 mg/dL (60-115); HDL Cholesterol 42 mg/dL (>40); LDL Cholesterol Calculated 97 mg/dL (<100); Potassium 4.5 mmol/L (3.3-5.1); Sodium 146 mmol/L (135-145); Total Protein 7.1 g/dL (6.5-8.0); Triglycerides 171 mg/dL (<150)
== END 2024-06-10 08:25 | disposition home or self-care (01) ==
LOC: HO.MANLDS 08:24
PROVIDERS: Visit Provider Internal Medicine
DX: I10 Essential (primary) hypertension (principal); E78.00 Pure hypercholesterolemia, unspecified
CPT/HCPCS: 36415; 80053; 80061; 85025

== ENCOUNTER 2024-06-21 09:59 | Outpatient (REF) | payer MEDICARE, SELFPAY ==
--- OUTSIDE RECORDS SUMMARY | 2024-06-21 10:49 | XMS_ITS | Encounter Summary ---
Author Organization [facility] [place], Address [address] [place] [address] Phone Care Team Providers Care Volleyball Commentator Name Role Phone Nasir Nevarez DO Primary Care Provider [phone] Encounter Details Date Type Department Care Team (Late Contact Info) Description 09/29/2022 Documentation Only [facility] [address] [place] [address] Mohit Kennedy MD [address] [place] [address] 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 [address] documented as of this encounter Visit Diagnoses Not on filedocumented in this encounter Care Teams Volleyball Commentator Relationship Specialty Start Date End Date Nasir Nevarez DO [address] [facility] [place] [address] PCP - General Internal Medicine 08/06/20 documented as of this encounter
--- OUTSIDE RECORDS SUMMARY | 2024-06-21 10:49 | XMS_ITS | Encounter Summary ---
Author Organization [facility] [place], Address [address] [place] [address] Phone Care Team Providers Care Rotary Drill Operator Helper Name Role Phone Nasir Nevarez DO Primary Care Provider [phone] Encounter Details Date Type Department Care Team (Late Contact Info) Description 09/29/2022 Documentation Only [facility] [address] [place] [address] Mohit Kennedy MD [address] [place] [address] 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 [address] documented as of this encounter Visit Diagnoses Not on filedocumented in this encounter Care Teams Rotary Drill Operator Helper Relationship Specialty Start Date End Date Nasir Nevarez DO [address] [facility] [place] [address] PCP - General Internal Medicine 08/06/20 documented as of this encounter
--- OUTSIDE RECORDS SUMMARY | 2024-06-21 10:49 | XMS_ITS | Encounter Summary ---
Author Organization [facility] [place], Address [address] [place] [address] Phone Care Team Providers Care Industrial Tractor Driver Name Role Phone Nasir Nevarez DO Primary Care Provider [phone] Encounter Details Date Type Department Care Team (Late Contact Info) Description 09/30/2022 Documentation Only [facility] [address] [place] [address] Mohit Kennedy MD [address] [place] [address] 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 [address] documented as of this encounter Visit Diagnoses Not on filedocumented in this encounter Care Teams Industrial Tractor Driver Relationship Specialty Start Date End Date Nasir Nevarez DO [address] [facility] [address] PCP - General Internal Medicine 08/06/20 documented as of this encounter
--- OUTSIDE RECORDS SUMMARY | 2024-06-21 10:49 | XMS_ITS | Encounter Summary ---
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 [address] documented as of this encounter Visit Diagnoses Not on filedocumented in this encounter Care Teams Grounds/Maintenance Specialist Relationship Specialty Start Date End Date Nasir Nevarez DO [address] [place] [address] PCP - General Internal Medicine 08/06/20 documented as of this encounter
--- OUTSIDE RECORDS SUMMARY | 2024-06-21 10:49 | XMS_ITS | Encounter Summary ---
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 [address] documented as of this encounter Visit Diagnoses Not on filedocumented in this encounter Care Teams Mergers And Acquisitions Manager Relationship Specialty Start Date End Date Nasir Nevarez DO [address] [place] [address] PCP - General Internal Medicine 08/06/20 documented as of this encounter
--- OUTSIDE RECORDS SUMMARY | 2024-06-21 10:49 | XMS_ITS | Encounter Summary ---
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 [address] documented as of this encounter Visit Diagnoses Not on filedocumented in this encounter Care Teams Singing Teacher Relationship Specialty Start Date End Date Nasir Nevarez DO [address] [place] [address] PCP - General Internal Medicine 08/06/20 documented as of this encounter
--- OUTSIDE RECORDS SUMMARY | 2024-06-21 10:49 | XMS_ITS | Clinical Summary ---
Author Organization [facility] [place], Address [address] [place] [address] Phone Care Team Providers Care Oncology Research Rn Name Role Phone Nasir Nevarez DO Primary Care Provider [phone] Allergies Active Allergy Reactions Criticality Noted Date [...] Telephone [facility] [place], [address] [place] [address] Kamini Olvera from Last 3 Months [...] Used Date Smoking Tobacco: Former Cigarettes 1 140 - 1986 Tobacco Cessation:Counseling Given: Not Answered [...] 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 [address] Health Maintenance Due Date Last Done Comments [...] 02/15/2018, 02/15/2018, 11/21/2016, Additional history exists Insurance [facility] Care Teams Oncology Research Rn Relationship Specialty Start Date End Date Nasir Nevarez DO [address] [place] [address] PCP - General Internal Medicine 08/06/20
--- OUTSIDE RECORDS SUMMARY | 2024-06-21 10:49 | XMS_ITS | Encounter Summary ---
Author Organization [facility] Address [address] [place] [address] Phone Care Team Providers Care Horse Riding Coach Or Instructor Name Role Phone Nasir Nevarez DO Primary Care Provider [phone] Encounter Details Date Type Department Care Team (Late Contact Info) Description 10/07/2023 Documentation Only [facility] [address] [place] [address] Roberta Bull [address] [place] [address] Social History Tobacco Use Types Packs/Day [...] [facility] [place] [address] [place] [address] Mohit Kennedy MD [address] [place] [address] [place] [address] documented as of this encounter Visit Diagnoses Not on filedocumented in this encounter Care Teams Horse Riding Coach Or Instructor Relationship Specialty Start Date End Date Nasir Nevarez DO [address] [place] [address] PCP - General Internal Medicine 08/06/20 documented as of this encounter
[2024-06-21 14:11] LABS: Creatinine Urine 70.23 mg/dL; Microalbum/Creatinine Ratio Ur 8.5 ug/mg cr (<30)
== END 2024-06-21 10:00 | disposition home or self-care (01) ==
LOC: HO.MANLDS 09:59
PROVIDERS: Visit Provider Internal Medicine
DX: E11.65 Type 2 diabetes mellitus with hyperglycemia (principal)
CPT/HCPCS: 82043; 82570

== ENCOUNTER 2024-12-21 09:52 | Outpatient (REF) | payer MEDICARE, SELFPAY ==
--- OUTSIDE RECORDS SUMMARY | 2024-12-21 11:22 | XMS_ITS | Encounter Summary ---
Author Organization [facility] Address [address] [facility] [address] [place] [address] Phone Care Team Providers Care Director Of Respiratory Therapy Name Role Phone Nasir Nevarez DO Unavailable Sara Benitez MD Unavailable Raymundo Chavez MD Unavailable Najma Gary CIGARETTE INSPECTOR Unavailable Sherley Baca CIGARETTE INSPECTOR Unavailable [phone] Kristine Bianchi MD Unavailable William Jarquin DPM Unavailable Unavailable Jake Callahan MD Unavailable [phone] Chelsey Jones CIGARETTE INSPECTOR Unavailable Nasir Nevarez DO Primary Care Provider [phone] Encounter Details Date Type Department Care Team (Late st Contact Info) Description 11/06/2017 Ancillary Orders Virtual Department 30 [place] [address] Nasir Nevarez DO [address] [place] [address] [email or web address] Encounter for screening for osteoporosis Social History Tobacco Use Types Packs/Day Years Used Date Smoking Tobacco: Former Cigarettes Q uit: 1987 Smokeless Tobacco: Never Alcohol Use Standard Drinks/Week Comments Yes 1 (1 standard drink = 0.6 oz pur e alcohol) nightly Comments No Sex and Gender Information Value Date Recorded Sex Assigned at Female 08/10/2017 9:57 AM EDT Legal Sex Female 10:10 PM EDT Gender Identity Female 08/10/2017 9:57 AM EDT Sexual Orientation Straight 08/10/2017 9: 57 AM EDT documented as of this encounter Plan of Treatment Upcoming Encounters Date Type Department Care Team (Late st Contact Info) Description 08/08/2024 Procedure Pass [address] [address] 09/19/2024 Procedure Pass Echo Lab [address] [place] [address] 01/26/2025 11:45 AM EST Appointment [address] [address] Nasir Nevarez, DO 179 [place] [address] [email or web address] 02/20/2025 12:45 PM EST Appointment Echo Lab [address] [place] [address] Ivan Manzo MD [address] [place] [address] 03/17/2025 11:00 AM EST Appointment [address] [address] Nasir Nevarez, DO [address] [place] [address] 03/22/2025 11:20 AM EST Office Visit [facility] [address] [place] [address] 3rd Floor, [address] [address] Iavn Manzo MD [address] [place] [address] .Model Metrics documented as of this encounter Results * BD DXA AXIAL (SPINE) WITH HIP (11/10/2017 12:48 PM EDT) Anatomical Region Laterality Modality Bone Density Bone Density 11/10/2017 12:5 2 PM EDT Impressions 11/10/2017 12:54 PM EDT Normal bone mineral density at all 3 sites assessed. S/S: Estrogen deficiency, bone density screening, height loss POS - [id number] Narrative 11/10/2017 12:54 PM EDT This is a 72-year-old postmenopausal patient with 1 inch of height loss reported.. Evaluation of the lumbar spine and both hips is obtained and appears appropriate. The lumbar spine from L1 through L4 discloses a total bone mineral density of 1.215 g/cm2 with a T-score of 1.5. This is in the normal range. The change in bone mineral density since November 17, 2013 is 1.6% and is not significant. The right hip has a total bone mineral density of 0.912 g/cm2 with a T-score of -0.2 this is in the normal range. The change in bone mineral density since November 17, 2013 is 0.0% and is not significant. The left hip has a total bone mineral density of 0.943 g/cm2 for a T-score of 0.0. This is in the normal range. The change in bone mineral density since November 17, 2013 is -0.6% and is not significant. Procedure Note Brent Pierce MD - 11/10/2017 This is a 72-year-old postmenopausal patient with 1 inch of height lossreported.. Evaluation of the lumbar spine and both hips is obtained and appearsappropriate. The lumbar spine from L1 through L4 discloses a total bone mineral densityof 1.215 g/cm2 with a T-score of 1.5. This is in the normal range. Thechange in bone mineral density since November 17, 2013 is 1.6% and is notsignificant. The right hip has a total bone mineral density of 0.912 g/cm2 with aT-score of - 0.2 this is in the normal range. The change in bone mineraldensity since November 17, 2013 is 0.0% and is not significant. The left hip has a total bone mineral density of 0.943 g/cm2 for a T-scoreof 0.0. This is in the normal range. The change in bone mineral densitysince November 17, 2013 is -0.6% and is not significant. IMPRESSION: Normal bone mineral density at all 3 sites assessed. S/S: Estrogen deficiency, bone density screening, height loss POS - [id number] us Nasir Nevarez DO IMG BD BONE DENSITY DEXA Final R esult documented in this encounter Visit Diagnoses Diagnosis Encounter for screening for osteoporosis Encounter for screening for osteoporosis documented in this encounter Care Teams Director Of Respiratory Therapy Relationship Specialty Start Date End Date Nasir Nevarez DO PCP - General 11/24/16 Nasir Nevarez DO Historical LMR Provider 11/24/16 Sara Benitez MD [address] [place] [address] Historical LMR Provider 11/24/16 02/16/21 Raymundo Chavez MD [address] [place] [address] Historical LMR Provider 11/24/16 Najma Gary NP [address] [place] [address] [email or web address] Historical LMR Provider 11/24/16 2 Sherley Baca NP [address] [place] [address] Historical LMR Provider 11/24/16 2 Kristine Bianchi MD [address] [place] [address], [address] [place] [address] [email or web address] Historical LMR Provider 11/24/16 02/16/21 William Jarquin DPM [address] [place] [address] Historical LMR Provider 11/24/1602/16/21 Jake Callahan MD [address] [place] [address] Historical LMR Provider 11/24/16 2 Chelsey Jones NP [address] [place] [address] Historical LMR Provider 11/24/16 2 documented as of this encounter Additional Source Comments The information contained in this document represents components of the legal health record. It is not the complete legal health record.[facility]
--- OUTSIDE RECORDS SUMMARY | 2024-12-21 11:22 | XMS_ITS | Encounter Summary ---
Author Organization [facility] Address [address] [facility] [place] [address] Phone Care Team Providers Care Sterilization Technician Name Role Phone Nasir Nevarez DO Unavailable Sara Benitez MD Unavailable [phone] Raymundo Chavez MD Unavailable [phone] Najma Gary COMFORT FILLER Unavailable Sherley Baca COMFORT FILLER Unavailable [phone] Kristine Bianchi MD Unavailable William Jarquin DPM Unavailable Unavailable Jake Callahan MD Unavailable [phone] Chelsey Jones COMFORT FILLER Unavailable [phone] Nasir Nevarez DO Primary Care Provider [phone] Encounter Details Date Type Department Care Team (Late st Contact Info) Description 10/23/2017 Procedure Pass [facility] Endoscopy Admitting Dept Virtual Department 30 [place] [address] Social History Tobacco Use Types Packs/Day Years [...] st Contact Info) Description 08/08/2024 Procedure Pass [address] [address] 09/19/2024 Procedure Pass Echo Lab [address] [place] [address] 01/26/2025 11:45 AM EST Appointment [address] [address] Nasir Nevarez DO [address] [place] [address] [email or web address] 02/20/2025 12:45 PM EST Appointment Echo Lab [address] [place] [address] Ivan Manzo MD [address] [place] [address] [email or web address] 03/17/2025 11:00 AM EST Appointment [address] [address] Nasir Nevarez DO 179 [place] [address] [email or web address] 03/22/2025 11:20 AM EST Office Visit [facility] [address] [place] [address] 3rd Floor, [address] [address] Ivan Manzo MD [address] [place] [address] [email or web address] documented as of this encounter Visit Diagnoses Not on filedocumented in this encounter Care Teams Sterilization Technician Relationship Specialty Start Date End Date Nasir Nevarez DO PCP - General 11/24/16 Nasir Nevarez DO Historical LMR Provider 11/24/16 Sara Benitez MD [address] [place] [address], [address] [place] [address] Historical LMR Provider 11/24/16 02/16/21 Raymundo Chavez MD [address] [place] [address] Historical LMR Provider 11/24/16 Najma Gary NP [address] [place] [address] [email or web address] Historical LMR Provider 11/24/16 2 Sherley Baca NP [address] [place] [address] Historical LMR Provider 11/24/16 2 Kristine Bianchi MD [address] [place] [address] Historical LMR Provider 11/24/16 02/16/21 William Jarquin DPM [address] [place] [address] Historical LMR Provider 11/24/1602/16/21 Jake Callahan MD [address] [place] [address] Historical LMR Provider 11/24/16 2 Chelsey Jones NP [address] [place] [address] Historical LMR Provider 11/24/16 2 documented as of this encounter Additional Source Comments The information contained in this document represents components of the legal health record. It is not the complete legal health record.[facility]
--- OUTSIDE RECORDS SUMMARY | 2024-12-21 11:22 | XMS_ITS | Encounter Summary ---
Author Organization [facility] Address [address] [facility] [address] [place] [address] Phone Care Team Providers Care Colon And Rectal Surgeon Name Role Phone Nasir Nevarez DO Unavailable Sara Benitez MD Unavailable [phone] Raymundo Chavez MD Unavailable [phone] Najma Gary COOPER APPRENTICE Unavailable [phone] Sherley Baca COOPER APPRENTICE Unavailable [phone] Kristine Bianchi MD Unavailable William Jarquin DPM Unavailable Unavailable Jake Callahan MD Unavailable [phone] Chelsey Jones COOPER APPRENTICE Unavailable [phone] Nasir Nevarez DO Primary Care Provider [phone] Encounter Details Date Type Department Care Team (Latest Contact Info) Description 08/11/2017 Transcribe Orders Virtual Department 30 [place] [address] Kimberly Galvin, RISK AND INSURANCE MANAGER 12 [place], [place] [phone] jo Tachycardia (Primary Dx) Social History Tobacco Use Types Packs/Day Years Used Date Smoking Tobacco: Former Smokeless Tobacco: Never Alcohol Use Standard Drinks/Week Comments Yes 0 (1 standard drink = 0.6 oz pur e alcohol) Comments No Sex and Gender Information Value Date Recorded Sex Assigned at Female 08/10/2017 9:57 AM EDT Legal Sex Female 10:10 PM EDT Gender Identity Female 08/10/2017 9:57 AM EDT Sexual Orientation Straight 08/10/2017 9: 57 AM EDT documented as of this encounter Plan of Treatment Upcoming Encounters Date Type Department Care Team (Late st Contact Info) Description 08/08/2024 Procedure Pass [address] [address] 09/19/2024 Procedure Pass Echo Lab [address] [place] [address] 01/26/2025 11:45 AM EST Appointment [address] [address] Nasir Nevarez, DO 179 [place] [address] 02/20/2025 12:45 PM EST Appointment Echo Lab [address] [place] [address] Ivan Manzo MD [address] [place] [address] 03/17/2025 11:00 AM EST Appointment [address] [address] Nasir Nevarez, DO 179 [place] [address] 03/22/2025 11:20 AM EST Office Visit [facility] [address] [place] [address] 3rd Floor, [address] [address] Ivan Manzo MD [address] [place] [address] documented as of this encounter Visit Diagnoses Diagnosis Tachycardia- Primary Unspecified tachycardia documented in this encounter Care Teams Colon And Rectal Surgeon Relationship Specialty Start Date End Date Roque Nasir KunzDO PCP - General 11/24/16 Nasir Nevarez DO Historical LMR Provider 11/24/16 Sara Benitez MD [address] [place] [address], 2nd [place] [address] [email or web address] Historical LMR Provider 11/24/16 02/16/21 Raymundo Chavez MD [address] [place] [address] Historical LMR Provider 11/24/16 Najma Gary, COOPER APPRENTICE [address] [place] [address] [email or web address] Historical LMR Provider 11/24/16 2 Sherley Baca, COOPER APPRENTICE [address] [place] [address] Historical LMR Provider 11/24/16 2 Kristine Bianchi MD [address] [place] [address] [email or web address] Historical LMR Provider 11/24/16 02/16/21 William Jarquin DPM [address] [place] [address] Historical LMR Provider 11/24/1602/16/21 Jake Callahan MD [address] [place] [address] Historical LMR Provider 11/24/16 2 Chelsey Jones NP [address] [place] [address] Historical LMR Provider 11/24/16 2 documented as of this encounter Additional Source Comments The information contained in this document represents components of the legal health record. It is not the complete legal health record.[facility]
--- OUTSIDE RECORDS SUMMARY | 2024-12-21 11:22 | XMS_ITS | Encounter Summary ---
Author Organization [facility] Address [address] [facility] [address] [place] [address] Phone Care Team Providers Care Recording Studio Internship Name Role Phone Nasir Nevarez DO Unavailable Sara Benitez MD Unavailable [phone] Raymundo Chavez MD Unavailable Najma Gary CITY DETECTIVE Unavailable Sherley Baca CITY DETECTIVE Unavailable [phone] Kristine Bianchi MD Unavailable William Jarquin DPM Unavailable Unavailable Jake Callahan MD Unavailable [phone] Chelsey Jones CITY DETECTIVE Unavailable [phone] Nasir Nevarez DO Primary Care Provider [phone] Encounter Details Date Type Department Care Team (Late st Contact Info) Description 10/23/2017 Procedure Pass [facility] Endoscopy Admitting Dept Virtual Department 30 [place] [address] Social History Tobacco Use Types Packs/Day Years [...] st Contact Info) Description 08/08/2024 Procedure Pass [address] [address] 09/19/2024 Procedure Pass Echo Lab [address] [place] [address] 01/26/2025 11:45 AM EST Appointment [address] [address] Nasir Nevarez DO [address] [place] [address] [email or web address] 02/20/2025 12:45 PM EST Appointment Echo Lab [address] [place] [address] Ivan Manzo MD [address] [place] [address] [email or web address] 03/17/2025 11:00 AM EST Appointment [address] [address] Nasir Nevarez DO 179 [place] [address] [email or web address] 03/22/2025 11:20 AM EST Office Visit [facility] [address] [place] [address] 3rd Floor, [address] [address] Ivan Manzo MD [address] [place] [address] [email or web address] documented as of this encounter Visit Diagnoses Not on filedocumented in this encounter Care Teams Recording Studio Internship Relationship Specialty Start Date End Date Nasir Nevarez DO PCP - General 11/24/16 Nasir Nevarez DO Historical LMR Provider 11/24/16 Sara Benitez MD [address] [place] [address], [address] [place] [address] Historical LMR Provider 11/24/16 02/16/21 Raymundo Chavez MD [address] [place] [address] Historical LMR Provider 11/24/16 Najma Gary NP [address] [place] [address] [email or web address] Historical LMR Provider 11/24/16 2 Sherley Baca NP [address] [place] [address] Historical LMR Provider 11/24/16 2 Kristine Bianchi MD [address] [place] [address] Historical LMR Provider 11/24/16 02/16/21 William Jarquin DPM [address] [place] [address] Historical LMR Provider 11/24/1602/16/21 Jake Callahan MD [address] [place] [address] Historical LMR Provider 11/24/16 2 Chelsey Jones NP [address] [place] [address] Historical LMR Provider 11/24/16 2 documented as of this encounter Additional Source Comments The information contained in this document represents components of the legal health record. It is not the complete legal health record.[facility]
--- OUTSIDE RECORDS SUMMARY | 2024-12-21 11:23 | XMS_ITS | Encounter Summary ---
Author Organization [facility] Address [address] [facility] [address] [place] [address] Phone Care Team Providers Care Farmworker Diversified Crops Name Role Phone Nasir Nevarez DO Unavailable Sara Benitez MD Unavailable [phone] Raymundo Chavez MD Unavailable Najma Gary FUNCTIONAL ARCHITECT Unavailable Sherley Baca FUNCTIONAL ARCHITECT Unavailable [phone] Kristine Bianchi MD Unavailable William Jarquin DPM Unavailable Unavailable Jake Callahan MD Unavailable [phone] Chelsey Jones FUNCTIONAL ARCHITECT Unavailable [phone] Nasir Nevarez DO Primary Care Provider [phone] Encounter Details Date Type Department Care Team (Late st Contact Info) Description 08/11/2017 Ancillary Orders Virtual Department 30 [place] [address] Kimberly Galvin, ANTHONY 12 [place] [address] [email or web address] Social History Tobacco Use Types Packs/Day Years [...] st Contact Info) Description 08/08/2024 Procedure Pass [address] [address] 09/19/2024 Procedure Pass Echo Lab [address] [place] [address] 01/26/2025 11:45 AM EST Appointment [address] [address] Nasir Nevarez, DO [address] [place] [address] 02/20/2025 12:45 PM EST Appointment Echo [facility] [place] [address] [place] [address] Ivan Manzo MD [address] [place] [address] 03/17/2025 11:00 AM EST Appointment [address] [address] Nasir Nevarez, DO 179 [place] [address] 03/22/2025 11:20 AM EST Office Visit [facility] [address] Floor, [address] [address] Ivan Manzo MD [address] [place] [address] documented as of this encounter Visit Diagnoses Not on filedocumented in this encounter Care Teams Farmworker Diversified Crops Relationship Specialty Start Date End Date Michjames Nasir KunzDO PCP - General 11/24/16 Nasir Nevarez DO Historical LMR Provider 11/24/16 Sara Benitez MD [address] [facility], 2nd [place] [address] Historical LMR Provider 11/24/16 02/16/21 Raymundo Chavez MD [address] [place] [address] Historical LMR Provider 11/24/16 Najma Gary, FUNCTIONAL ARCHITECT [address] [place] [address] [email or web address] Historical LMR Provider 11/24/16 2 Sherley Baca, FUNCTIONAL ARCHITECT [address] [place] [address] Historical LMR Provider 11/24/16 2 Kristine Bianchi MD [address] [address] [email or web address] Historical LMR Provider 11/24/16 02/16/21 William Jarquin DPM 22 [place] [address] Historical LMR Provider 11/24/1602/16/21 Jake Callahan MD [address] [place] [address] Historical LMR Provider 11/24/16 2 Chelsey Jones NP [address] [place] [address] Historical LMR Provider 11/24/16 2 documented as of this encounter Additional Source Comments The information contained in this document represents components of the legal health record. It is not the complete legal health record.[facility]
--- OUTSIDE RECORDS SUMMARY | 2024-12-21 11:23 | XMS_ITS | Encounter Summary ---
Author Organization [facility] Address [address] [facility] [address] [place] [address] Phone Care Team Providers Care Suit Attendant Name Role Phone Nasir Nevarez DO Unavailable Sara Benitez MD Unavailable [phone] Raymundo Chavez MD Unavailable Najma Gary CENTRAL SUPPLY TECH Unavailable Sherley Baca CENTRAL SUPPLY TECH Unavailable [phone] Kristine Bianchi MD Unavailable William Jarquin DPM Unavailable Unavailable Jake Callahan MD Unavailable [phone] Chelsey Jones CENTRAL SUPPLY TECH Unavailable Nasir Nevarez DO Primary Care Provider [phone] Encounter Details Date Type Department Care Team (Late st Contact Info) Description 09/01/2018 Transcribe Orders Virtual Department 30 [place] [address] Nasir Nevarez DO 179 [facility] [place] [address] Acquired hallux valgus of left foot (Primary Dx); Pain in right finger(s) Social History Tobacco Use Types Packs/Day Years [...] st Contact Info) Description 08/08/2024 Procedure Pass [address] [address] 09/19/2024 Procedure Pass Echo Lab [address] [place] [address] 01/26/2025 11:45 AM EST Appointment [address] [address] Nasir Nevarez, DO 179 [place] [address] [email or web address] 02/20/2025 12:45 PM EST Appointment Echo Lab [address] [place] [address] Ivan Manzo MD [address] [place] [address] 03/17/2025 11:00 AM EST Appointment [address] [address] Nasir Nevarez, DO [address] [place] [address] 03/22/2025 11:20 AM EST Office Visit [facility] 3rd Floor, [address] [address] Ivan Manzo MD [address] [place] [address] [email or web address] documented as of this encounter Results * XR FOOT 3 OR MORE VIEWS (LEFT) (09/20/2018 10:20 AM EDT) Anatomical Region Laterality Modality Foot Left Radiographic Valerie ging 09/20/2018 11:4 7 AM EDT Impressions 09/20/2018 11:49 AM EDT 1. Mild hallux valgus deformity and bunion. 2. Second through fifth DIP joint mild osteoarthritis. POS - [id number] Narrative 09/20/2018 11:49 AM EDT HISTORY: As above. COMPARISON: None. LEFT FOOT RADIOGRAPH FINDINGS: Three views obtained. Mild hallux valgus deformity. Mild second through fifth MP joints space narrowing. Moderate size plantar calcaneal spur and mild dorsal tarsal metatarsal joint spurring. No bone lesions or erosions. Mild medial soft tissue swelling and calcification at the first MTP joint. Procedure Note Earnest Garza MD - 09/20/2018 HISTORY: As above. COMPARISON: None. LEFT FOOT RADIOGRAPH FINDINGS: Three views obtained. Mild hallux valgus deformity. Mild second throughfifth MP joints space narrowing. Moderate size plantar calcaneal spur andmild dorsal tarsal metatarsal joint spurring. No bone lesions orerosions. Mild medial soft tissue swelling and calcification at the firstMTP joint. IMPRESSION: 1. Mild hallux valgus deformity and bunion. 2. Second through fifth DIP joint mild osteoarthritis. POS - [id number] us Nasir A Bigda DO IMG XR LOWER EXTREMITY Final Res ult * XR FINGER THUMB (RIGHT) (09/20/2018 10:19 AM EDT) Anatomical Region Laterality Modality Hand Right Radiographic Valerie ging 09/20/2018 10:2 6 AM EDT Impressions 09/20/2018 10:31 AM EDT 1. 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 2. Osteopenia and osteoarthritis of the wrist and digits as above. 2. Chronic wrist CPPD. POS - [id number] Narrative 09/20/2018 10:31 AM EDT HISTORY: As above. No reported trauma. COMPARISON: Right wrist radiograph 10/21/2012. RIGHT THUMB RADIOGRAPH FINDINGS: Four views obtained. Bones are osteopenic. Ring obscures the fourth mid shaft proximal phalanx No acute fracture or malalignment. There is mild osteophyte as the first CMC joint, first MCP joint, first IP joint and second and third DIP joints. No bone lesions. Mild increase in periarticular soft tissue calcification of the first MCP joint. Two small soft tissue calcifications in the thenar eminence are unchanged. Chronic calcification of the TFC ligament. Procedure Note Earnest Garza MD - 09/20/2018 HISTORY: As above. No reported trauma. COMPARISON: Right wrist radiograph 10/21/2012. RIGHT THUMB RADIOGRAPH FINDINGS: Four views obtained. Bones are osteopenic. Ring obscures the fourth midshaft proximal phalanx No acute fracture or malalignment. There is mildosteophyte as the first CMC joint, first MCP joint, first IP joint andsecond and third DIP joints. No bone lesions. Mild increase inperiarticular soft tissue calcification of the first MCP joint. Two smallsoft tissue calcifications in the thenar eminence are unchanged. Chroniccalcification of the TFC ligament. IMPRESSION: 1. 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 2. Osteopenia and osteoarthritis of the wrist and digits as above. 2. Chronic wrist CPPD. POS - [id number] us Nasir Nevarez DO IMG XR UPPER EXTREMITY Final Res ult documented in this encounter Visit Diagnoses Diagnosis Acquired hallux valgus of left foot- Primary Pain in right finger(s) Pain in right finger(s) Acquired hallux valgus of left foot documented in this encounter Care Teams Suit Attendant Relationship Specialty Start Date End Date Nasir Nevarez DO PCP - General 11/24/16 Nasir Nevarez DO Historical LMR Provider 11/24/16 Sara Benitez MD [address] [place] [address], [facility] [place] [address] Historical LMR Provider 11/24/16 02/16/21 Raymundo Chavez MD [address] [place] [address] Historical LMR Provider 11/24/16 Najma Gary CENTRAL SUPPLY TECH [address] [place] [address] [email or web address] Historical LMR Provider 11/24/16 2 Sherley Baca CENTRAL SUPPLY TECH [address] [place] [address] Historical LMR Provider 11/24/16 2 Kristine Bianchi MD [address] [place] [address] Historical LMR Provider 11/24/16 02/16/21 William Jarquin DPM [address] [place] [address] Historical LMR Provider 11/24/1602/16/21 Jake Callahan MD [address] [place] [address] Historical LMR Provider 11/24/16 2 Chelsey Jones NP [address] [place] [address] Historical LMR Provider 11/24/16 2 documented as of this encounter Additional Source Comments The information contained in this document represents components of the legal health record. It is not the complete legal health record.[facility]
--- OUTSIDE RECORDS SUMMARY | 2024-12-21 11:23 | XMS_ITS | Encounter Summary ---
Author Organization [facility] Address [address] [facility] [address] [place] [address] Phone Care Team Providers Care Prototype Carpenter Name Role Phone Nasir Nevarez DO Unavailable Sara Benitez MD Unavailable Raymundo Chavez MD Unavailable [phone] Najma Gary WHARFINGER CHIEF Unavailable Sherley Baca WHARFINGER CHIEF Unavailable [phone] Kristine Bianchi MD Unavailable William Jarquin DPM Unavailable Unavailable Jake Callahan MD Unavailable [phone] Chelsey Jones WHARFINGER CHIEF Unavailable Nasir Nevarez DO Primary Care Provider [phone] Encounter Details Date Type Department Care Team (Late st Contact Info) Description 07/18/2019 Ancillary Orders Virtual Department 30 [place] [address] Nasir Nevarez DO 179 [facility] [place] [address] [email or web address] Breast screening Social History Tobacco Use Types Packs/Day Years [...] st Contact Info) Description 08/08/2024 Procedure Pass [address] [address] 09/19/2024 Procedure Pass Echo Lab [address] [place] [address] 01/26/2025 11:45 AM EST Appointment [address] [address] Nasir Nevarez, DO 179 [place] [address] 02/20/2025 12:45 PM EST Appointment Echo Lab [address] [place] [address] Ivan Manzo MD [address] [place] [address] 03/17/2025 11:00 AM EST Appointment [address] [address] Nasir Nevarez, DO 179 [place] [address] 03/22/2025 11:20 AM EST Office Visit [facility] [address] [place] [address] 3rd Floor, [address] [address] Ivan Manzo MD [address] [place] [address] documented as of this encounter Results * BI MAMMOGRAM SCREENING WITH TOMOSYNTHESIS WITH CAD (BILATERAL) (10/04/2019 10:20 AM EDT) Anatomical Region Laterality Modality Breast Left, Breast Right, Breast Bilateral Bila teral Mammography 10/04/2019 6:23 PM EDT Impressions 10/04/2019 6:46 PM EDT BILATERAL BREASTS: Negative, no evidence of malignancy. Normal interval follow- up is recommended in 12 months. BI-RADS: BI-RADS CATEGORY: 1 - Negative. DENSITY: The breast tissue is heterogeneously dense, which may obscure small masses Narrative 10/04/2019 6:46 PM EDT STUDY: Bilateral screening mammography with tomosynthesis and CAD TECHNIQUE: Bilateral full-field digital screening mammography is obtained and read in conjunction with computer-aided detection. Tomosynthesis as well as 2-D C view imaging were obtained. COMPARISON: Comparison made to multiple prior, most recent September 20, 2018, and most remote August 13, 2012. BREAST COMPOSITION: The breasts are heterogeneously dense, which may obscure small masses. BILATERAL BREASTS: No significant masses, calcifications or other abnormalities are seen. Nasir Nevarez DO IMG MG EXAMS Final Result documented in this encounter Visit Diagnoses Diagnosis Breast screening Breast screening, unspecified Breast screening Breast screening, unspecified documented in this encounter Care Teams Prototype Carpenter Relationship Specialty Start Date End Date Nasir Nevarez DO PCP - General 11/24/16 Nasir Nevarez DO Historical LMR Provider 11/24/16 Sara Benitez MD [address] [place] [address], 2nd [place] [address] Historical LMR Provider 11/24/16 02/16/21 Raymundo Chavez MD [address] [place] [address] Historical LMR Provider 11/24/16 Najma Gary NP [address] [place] [address] [email or web address] Historical LMR Provider 11/24/16 2 Sherley Baca NP [address] [place] [address] Historical LMR Provider 11/24/16 2 Kristine Bianchi MD [address] [place] [address] [email or web address] Historical LMR Provider 11/24/16 02/16/21 William Jarquin DPM [address] [place] [address] Historical LMR Provider 11/24/1602/16/21 Jake Callahan MD [address] [place] [address] Historical LMR Provider 11/24/16 2 Chelsey Jones NP [address] [place] [address] Historical LMR Provider 11/24/16 2 documented as of this encounter Additional Source Comments The information contained in this document represents components of the legal health record. It is not the complete legal health record.[facility]
--- OUTSIDE RECORDS SUMMARY | 2024-12-21 11:23 | XMS_ITS | Encounter Summary ---
Author Organization [facility] Address [address] [facility] [address] [place] [address] Phone Care Team Providers Care Compliance Testing Analyst Name Role Phone Naisr Nevarez DO Unavailable Sara Benitez MD Unavailable Raymundo Chavez MD Unavailable Najma Gary CHART COLLECTOR Unavailable Sherley Baca CHART COLLECTOR Unavailable [phone] Kristine Bianchi MD Unavailable William Jarquin DPM Unavailable Unavailable Jake Callahan MD Unavailable [phone] Chelsey Jones CHART COLLECTOR Unavailable Nasir Nevarez DO Primary Care Provider [phone] Encounter Details Date Type Department Care Team (Late st Contact Info) Description 09/18/2017 Ancillary Orders Virtual Department 30 [place] [address] Nasir Nevarez DO 179 [place] [address] [email or web address] Breast screening Social History Tobacco Use Types [...] Contact Info) Description 08/08/2024 Procedure Pass [address] [address] 09/19/2024 Procedure Pass Echo Lab [address] [place] [address] 01/26/2025 11:45 AM EST Appointment [address] [address] Nasir Nevarez, DO 179 [place] [address] [email or web address] 02/20/2025 12:45 PM EST Appointment Echo Lab [address] [place] [address] Ivan Manzo MD [address] [place] [address] [email or web address] 03/17/2025 11:00 AM EST Appointment [address] [address] Nasir Nevarez, DO 179 [place] [address] 03/22/2025 11:20 AM EST Office Visit [facility] [address] [place] [address] [address]rd Floor, [address] [address] Ivan Manzo MD [address] [place] [address] [email or web address] documented as of this encounter Results * BI MAMMOGRAM SCREENING WITH TOMOSYNTHESIS WITH CAD (BILATERAL) (09/20/2018 9:55 AM EDT) Anatomical Region Laterality Modality Breast Left, Breast Right, Breast Bilateral Bila teral Mammography 09/20/2018 11:4 8 PM EDT Impressions 09/20/2018 11:50 PM EDT RIGHT breast: No mammographic evidence of malignancy. LEFT breast: No mammographic evidence of malignancy. RECOMMENDED FOLLOWUP: Routine screening mammography is recommended, as clinically appropriate. The results will be sent by mail to the patient. BI-RADS CATEGORY: 1 - Negative. BREAST COMPOSITION: The breast tissue is heterogeneously dense, an appearance which lowers the sensitivity of mammography. POS - [id number] Narrative 09/20/2018 11:50 PM EDT EXAM: BI MAMMOGRAM SCREENING WITH TOMOSYNTHESIS WITH CAD (BILATERAL) HISTORY: Screening. * Annual COMPARISON: Prior mammograms, most recent 09/18/2017 and dating back to 2013. TECHNIQUE: Digital breast tomosynthesis was performed in CC and MLO projections. Reconstructed 2-D C-views generated from the tomosynthesis images. Images interpreted in conjunction with R-2 Image System Development Manager computer-aided detection (CAD). FINDINGS: BREAST COMPOSITION: The breasts are heterogeneously dense, which may obscure small masses. RIGHT breast: There are no suspicious masses, suspicious areas of architectural distortion or suspicious clusters of microcalcifications. LEFT breast: There are no suspicious masses, suspicious areas of architectural distortion or suspicious clusters of microcalcifications. Procedure Note Khushboo Olea MD - 09/20/2018 EXAM: BI MAMMOGRAM SCREENING WITH TOMOSYNTHESIS WITH CAD (BILATERAL) HISTORY: Screening. * Annual COMPARISON: Prior mammograms, most recent 09/18/2017 and dating back us3950. TECHNIQUE: Digital breast tomosynthesis was performed in CC and MLOprojections. Reconstructed 2-D C-views generated from the tomosynthesisimages. Images interpreted in conjunction with R-2 Image Checkercomputer-aided detection (CAD). FINDINGS: BREAST COMPOSITION: The breasts are heterogeneously dense, which mayobscure small masses. RIGHT breast: There are no suspicious masses, suspicious areas ofarchitectural distortion or suspicious clusters of microcalcifications. LEFT breast: There are no suspicious masses, suspicious areas ofarchitectural distortion or suspicious clusters of microcalcifications. IMPRESSION: RIGHT breast: No mammographic evidence of malignancy. LEFT breast: No mammographic evidence of malignancy. RECOMMENDED FOLLOWUP: Routine screening mammography is recommended, asclinically appropriate. The results will be sent by mail to the patient. BI-RADS CATEGORY: 1 - Negative. BREAST COMPOSITION: The breast tissue is heterogeneously dense, anappearance which lowers the sensitivity of mammography. POS - CDHMAMA us Nasir Nevarez DO IMG MG EXAMS Final Result documented in this encounter Visit Diagnoses Diagnosis Breast screening Breast screening, unspecified Breast screening Breast screening, unspecified documented in this encounter Care Teams Compliance Testing Analyst Relationship Specialty Start Date End Date Nasir Nevarez DO [email or web address] PCP - General 11/24/16 Nasir Nevarez DO Historical LMR Provider 11/24/16 Sara Benitez MD [address] [place] [address] [email or web address] Historical LMR Provider 11/24/16 02/16/21 Raymundo Chavez MD [address] [place] [address] Historical LMR Provider 11/24/16 Najma Gary NP [address] [place] [address] [email or web address] Historical LMR Provider 11/24/16 2 Sherley Baca NP [address] [place] [address] Historical LMR Provider 11/24/16 2 Kristine Bianchi MD [address] [place] [address], [address] [place] [address] [email or web address] Historical LMR Provider 11/24/16 02/16/21 William Jarquin DPM [address] [place] [address] Historical LMR Provider 11/24/1602/16/21 Jake Callahan MD [address] [place] [address] Historical LMR Provider 11/24/16 2 Chelsey Jones NP [address] [place] [address] Historical LMR Provider 11/24/16 2 documented as of this encounter Additional Source Comments The information contained in this document represents components of the legal health record. It is not the complete legal health record.[facility]
--- OUTSIDE RECORDS SUMMARY | 2024-12-21 11:24 | XMS_ITS | Encounter Summary ---
Author Organization [facility] Address [address] [facility] [address] [place] [address] Phone Care Team Providers Care Licensed Customs Broker Name Role Phone Nasir Nevarez DO Unavailable Sara Benitez MD Unavailable [phone] Raymundo Chavez MD Unavailable Najma Gary COUNTY ADVISER Unavailable Sherley Baca COUNTY ADVISER Unavailable [phone] Kristine Bianchi MD Unavailable William aJrquin DPM Unavailable Unavailable Jake Callahan MD Unavailable [phone] Chelsey Jones COUNTY ADVISER Unavailable Nasir Nevarez DO Primary Care Provider [phone] Encounter Details Date Type Department Care Team (Late st Contact Info) Description 10/16/2020 Ancillary Orders Virtual Department 30 [place] [address] Jessica Bermudez PA [address] [facility] [place] [address] [place] [address] Pain and swelling of right lower extremity Social History Tobacco Use Types Packs/Day Years Used Date Smoking Tobacco: Former Cigarettes Q uit: 1987 Smokeless Tobacco: Never Alcohol Use Standard Drinks/Week Comments Never 0 (1 standard drink = 0.6 oz pur e alcohol) none in 30 days Comments No Sex and Gender Information Value Date Recorded Sex Assigned at Female 08/10/2017 9:57 AM EDT Legal Sex Female 10:10 PM EDT Gender Identity Female 08/10/2017 9:57 AM EDT Sexual Orientation Straight 08/10/2017 9: 57 AM EDT documented as of this encounter Plan of Treatment Upcoming Encounters Date Type Department Care Team (Late st Contact Info) Description 08/08/2024 Procedure Pass [address] [address] 09/19/2024 Procedure Pass Echo Lab [address] [place] [address] 01/26/2025 11:45 AM EST Appointment [address] [address] Nasir Nevarez, DO 179 [place] [address] 02/20/2025 12:45 PM EST Appointment Echo Lab [address] [place] [address] Ivan Manzo MD [address] [place] [address] [email or web address] 03/17/2025 11:00 AM EST Appointment [address] [address] Nasir Nevarez, DO 179 [facility] [place] [address] 03/22/2025 11:20 AM EST Office Visit [facility] [address] [place] [address] 3rd Floor, [address] [address] Ivan Manzo MD [address] [place] [address] [email or web address] documented as of this encounter Results * US Lower Extremity Veins Duplex (Right) (10/16/2020 3:10 PM EDT) Anatomical Region Laterality Modality Hip Right, Thigh Right, Knee Right, Leg Right, Ankle Right, Foot Right Ultrasound 10/16/2020 3:12 PM EDT Impressions 10/16/2020 3:13 PM EDT No evidence of deep venous thrombosis in the right lower extremity. Narrative 10/16/2020 3:13 PM EDT HISTORY: Right lower extremity pain and swelling. COMPARISON:None. TECHNIQUE: Evaluation of the deep venous system of the right lower extremity is performed, including the calf veins. FINDINGS: The veins of the deep venous system of the right leg are clear and compress normally. Normal Doppler flow was demonstrated. Augmentation maneuvers are normal. No evidence of masses in the popliteal fossa. Procedure Note Conor Vasquez MD - 10/16/2020 HISTORY: Right lower extremity pain and swelling. COMPARISON:None. TECHNIQUE: Evaluation of the deep venous system of the right lowerextremity is performed, including the calf veins. FINDINGS: The veins of the deep venous system of the right leg are clear andcompress normally. Normal Doppler flow was demonstrated. Augmentationmaneuvers are normal. No evidence of masses in the popliteal fossa. IMPRESSION: No evidence of deep venous thrombosis in the right lower extremity. Jessica GUTIERREZ CV US VASCULAR Final Resul t documented in this encounter Visit Diagnoses Diagnosis Pain and swelling of right lower extremity Pain and swelling of right lower extremity documented in this encounter Care Teams Licensed Customs Broker Relationship Specialty Start Date End Date Nasir Nevarez DO [email or web address] PCP - General 11/24/16 Nasir Nevarez DO Historical LMR Provider 11/24/16 Sara Benitez MD [address] [place] [address], [facility] [place] [address] [email or web address] Historical LMR Provider 11/24/16 02/16/21 Raymundo Chavez MD [address] [place] [address] Historical LMR Provider 11/24/16 Najma Gary NP [address] [place] [address] [email or web address] Historical LMR Provider 11/24/16 2 Sherley Baca NP [address] [place] [address] Historical LMR Provider 11/24/16 2 Kristine Bianchi MD [address] [place] [address] [email or web address] Historical LMR Provider 11/24/16 02/16/21 William Jarquin DPM [address] [place] [address] Historical LMR Provider 11/24/1602/16/21 Jake Callahan MD [address] [place] [address] Historical LMR Provider 11/24/16 2 Chelsey Jones NP [address] [place] [address] Historical LMR Provider 11/24/16 2 documented as of this encounter Additional Source Comments The information contained in this document represents components of the legal health record. It is not the complete legal health record[facility]
--- OUTSIDE RECORDS SUMMARY | 2024-12-21 11:25 | XMS_ITS | Encounter Summary ---
Author Organization [facility] Address [address] [facility] [address] [place] [address] Phone Care Team Providers Care Warp Tester Name Role Phone Nasir Nevarez DO Unavailable Nasir Nevarez DO Primary Care Provider [phone] Encounter Details Date Type Department Care Team ([facility] st Contact Info) Description 07/29/2022 Transcribe Orders Virtual Department [address] [place] [address] Nasir Nevarez DO [address] [facility] [place] [address] [place] [address] [email or web address] Breast screening (Primary Dx) Social History Tobacco Use Types Packs/Day Years Used Date Smoking Tobacco: Former Cigarettes 0.5 25 0 02/09/1961 - 02/09/1986 Smokeless Tobacco: Never Alcohol Use Standard Drinks/Week Comments Not Currently 7 (1 standard drink = 0.6 oz pur e alcohol) Education Answer Date Recorded Are you interested in more education? Not on km e 06/06/2022 Are you concerned about learning? Not on file 06/06/2022 No 06/06/2022 No 06/06/2022 Digital Access Answer Date Recorded No 07/05/2022 No 07/05/2022 Reliable internet access at home? Not on file 07/05/2022 Device with a working camera? Not on file Comments No Sex and Gender Information Value Date Recorded Sex Assigned at Female 08/10/2017 9:57 AM EDT Legal Sex Female 10:10 PM EDT Gender Identity Female 08/10/2017 9:57 AM EDT Sexual Orientation Straight 08/10/2017 9: 57 AM EDT documented as of this encounter Plan of Treatment Upcoming Encounters Date Type Department Care Team (Late st Contact Info) Description 08/08/2024 Procedure Pass [address] [address] 09/19/2024 Procedure Pass [facility] [address] [place] [address] 01/26/2025 11:45 AM EST Appointment [facility] [address] [address] Nasir Nevarez, DO [address] [place] [address] 02/20/2025 12:45 PM EST Appointment [facility] [place] [address] [place] [address] Ivan Manzo MD [address] [place] [address] 03/17/2025 11:00 AM EST Appointment [address] [address] Nasir Nevarez, DO [address] [place] [address] 03/22/2025 11:20 AM EST Office Visit [facility] Khloe GaitanRhonda 3rd Floor, [address] [address] Ivan Manzo MD [address] [place] [address] documented as of this encounter Results * BI MAMMOGRAM SCREENING WITH TOMOSYNTHESIS WITH CAD (BILATERAL) (10/08/2022 11:00 AM EDT) Anatomical Region Laterality Modality Breast Left, Breast Right, Breast Bilateral Bila teral Mammography 10/21/2022 4:34 PM EDT Impressions 10/22/2022 2:11 PM EDT No mammographic signs of malignancy. Annual screening is recommended. BI-RADS CATEGORY: 2 - Benign finding. DENSITY: There are scattered fibroglandular densities. Narrative 10/22/2022 2:11 PM EDT Bilateral mammography is performed in conjunction with computed aided detection. 3-D tomography along with 2-D C view imaging was also performed. Comparison made to previous dated as far back as 06/01/2003 and as recent as 10/07/2021. No suspicious masses, areas of architectural distortion or suspicious microcalcifications. A few bilateral microcalcifications are stable. Skin calcifications present on the left. Procedure Note Conor Vasquez MD - 10/22/2022 Bilateral mammography is performed in conjunction with computed aideddetection. 3-D tomography along with 2-D C view imaging was alsoperformed. Comparison made to previous dated as far back as 06/01/2003 andas recent as 10/07/2021. No suspicious masses, areas of architectural distortion or suspiciousmicrocalcifications. A few bilateral microcalcifications are stable. Skincalcifications present on the left. IMPRESSION: No mammographic signs of malignancy. Annual screening is recommended. BI-RADS CATEGORY: 2 - Benign finding. DENSITY: There are scattered fibroglandular densities. Nasir Nevarez DO IMG MG EXAMS Final Result documented in this encounter Visit Diagnoses Diagnosis Breast screening- Primary Breast screening, unspecified Breast screening Breast screening, unspecified documented in this encounter Care Teams Warp Tester Relationship Specialty Start Date End Date Nasir Nevarez DO PCP - General 11/24/16 Nasir Nevarez DO [email or web address] Historical LMR Provider 11/24/16 documented as of this encounter Additional Source Comments The information contained in this document represents components of the legal health record. It is not the complete legal health record.[facility]
--- OUTSIDE RECORDS SUMMARY | 2024-12-21 11:25 | XMS_ITS | Encounter Summary ---
Author Organization [facility] Address [address] [facility] [address] [place] [address] Phone Care Team Providers Care Mirror Department Supervisor Name Role Phone Nasir Nevarez DO Unavailable Sara Benitez MD Unavailable [phone] Raymundo Chavez MD Unavailable Najma Gary EARTH OBSERVATIONS CHIEF SCIENTIST Unavailable Sherley Baca EARTH OBSERVATIONS CHIEF SCIENTIST Unavailable [phone] Kristine Bianchi MD Unavailable William Jarquin DPM Unavailable Unavailable Jake Callahan MD Unavailable [phone] Chelsey Jones EARTH OBSERVATIONS CHIEF SCIENTIST Unavailable [phone] Nasir Nevarez DO Primary Care Provider [phone] Encounter Details Date Type Department Care Team (Late st Contact Info) Description 07/06/2020 Procedure Pass [facility], [facility] [address] [place] [address] Social History Tobacco Use Types Packs/Day Years Used Date Smoking Tobacco: Former Cigarettes Q uit: 1986 Smokeless Tobacco: Never Alcohol Use Standard Drinks/Week [...] st Contact Info) Description 08/08/2024 Procedure Pass [address] [address] 09/19/2024 Procedure Pass [facility] [address] [place] [address] 01/26/2025 11:45 AM EST Appointment [address] [address] Nasir Nevarez DO 179 [place] [address] [email or web address] 02/20/2025 12:45 PM EST Appointment [facility] [address] [place] [address] Ivan Manzo MD [address] [place] [address] [email or web address] 03/17/2025 11:00 AM EST Appointment [address] [address] Nasir Nevarez, 179 [place] [address] [email or web address] 03/22/2025 11:20 AM EST Office Visit [facility] [address] [place] [address] 3rd Floor, [address] [address] Ivan Manzo MD [address] [place] [address] [email or web address] documented as of this encounter Visit Diagnoses Not on filedocumented in this encounter Care Teams Mirror Department Supervisor Relationship Specialty Start Date End Date Nasir Nevarez DO PCP - General 11/24/16 Nasir Nevarez DO Historical LMR Provider 11/24/16 Sara Benitez MD [address] [place] [address], 2nd [place] [address] Historical LMR Provider 11/24/16 02/16/21 Raymundo Chavez MD [address] [place] [address] Historical LMR Provider 11/24/16 Najma Gary NP [address] [place] [address] [email or web address] Historical LMR Provider 11/24/16 2 Sherley Baca EARTH OBSERVATIONS CHIEF SCIENTIST [address] [place] [address] Historical LMR Provider 11/24/16 2 Kristine Bianchi MD [address] [place] [address] Historical LMR Provider 11/24/16 02/16/21 William Jarquin DPM [address] [place] [address] Historical LMR Provider 11/24/1602/16/21 Jake Callahan MD [address] [place] [address] Historical LMR Provider 11/24/16 2 Chelsey Jones NP [address] [place] [address] Historical LMR Provider 11/24/16 2 documented as of this encounter Additional Source Comments The information contained in this document represents components of the legal health record. It is not the complete legal health record.[facility]
--- OUTSIDE RECORDS SUMMARY | 2024-12-21 11:25 | XMS_ITS | Encounter Summary ---
Author Organization [facility] Address [address] [facility] [address] [place] [address] Phone Care Team Providers Care Wood Tile Installation Helper Name Role Phone Nasir Nevarez DO Unavailable Sara Benitez MD Unavailable [phone] Raymundo Chavez MD Unavailable Najma Gary GLOST TILE SHADER Unavailable Sherley Baca GLOST TILE SHADER Unavailable [phone] Kristine Bianchi MD Unavailable William Jarquin DPM Unavailable Unavailable Jake Callahan MD Unavailable [phone] Chelsey Jones GLOST TILE SHADER Unavailable [phone] Nasir Nevarez DO Primary Care Provider [phone] Encounter Details Date Type Department Care Team (Late st Contact Info) Description 02/17/2020 Procedure Pass [facility] 30 [place] [address] Social History Tobacco Use Types Packs/Day Years [...] st Contact Info) Description 08/08/2024 Procedure Pass [address] [address] 09/19/2024 Procedure Pass [facility] [address] [place] [address] 01/26/2025 11:45 AM EST Appointment [address] [address] Nasir Nevarez DO [address] [place] [address] [email or web address] 02/20/2025 12:45 PM EST Appointment [facility] [address] [place] [address] Ivan Manzo MD [address] [place] [address] [email or web address] 03/17/2025 11:00 AM EST Appointment [address] [address] Nasir Nevarez DO 179 [place] [address] [email or web address] 03/22/2025 11:20 AM EST Office Visit [facility] [address] [place] [address] 3rd Floor, [address] [address] Ivan Manzo MD [address] [place] [address] [email or web address] documented as of this encounter Visit Diagnoses Not on filedocumented in this encounter Care Teams Wood Tile Installation Helper Relationship Specialty Start Date End Date Nasir Nevarez DO PCP - General 11/24/16 Nasir Nevarez DO Historical LMR Provider 11/24/16 Sara Benitez MD [address] [place] [address], [address] [place] [address] Historical LMR Provider 11/24/16 02/16/21 Raymundo Chavez MD [address] [place] [address] Historical LMR Provider 11/24/16 Najma Gary NP [address] [place] [address] [email or web address] Historical LMR Provider 11/24/16 2 Sherley Baca NP [address] [place] [address] Historical LMR Provider 11/24/16 2 Kristine Bianchi MD [address] [place] [address] Historical LMR Provider 11/24/16 02/16/21 William Jarquin DPM [address] [place] [address] Historical LMR Provider 11/24/1602/16/21 Jake Callahan MD [address] [place] [address] Historical LMR Provider 11/24/16 2 Chelsey Jones NP [address] [place] [address] Historical LMR Provider 11/24/16 2 documented as of this encounter Additional Source Comments The information contained in this document represents components of the legal health record. It is not the complete legal health record.[facility]
--- OUTSIDE RECORDS SUMMARY | 2024-12-21 11:25 | XMS_ITS | Encounter Summary ---
Author Organization [facility] Address [address] [facility] [address] [place] [address] Phone Care Team Providers Care Security Professionals Name Role Phone Nasir Nevarez DO Unavailable Sara Benitez MD Unavailable [phone] Raymundo Chavez MD Unavailable Najma Gary ENGINE MONITOR Unavailable Sherley Baca ENGINE MONITOR Unavailable [phone] Kristine Bianchi MD Unavailable William Jarquin DPM Unavailable Unavailable Jake Callahan MD Unavailable [phone] Chelsey Jones ENGINE MONITOR Unavailable [phone] Nasir Nevarez DO Primary Care Provider [phone] Encounter Details Date Type Department Care Team (Late st Contact Info) Description 01/16/2020 Procedure Pass [facility] Admitting Dept Virtual Department 30 [place] [address] Social History Tobacco Use Types Packs/Day Years Used Date Smoking Tobacco: Former Cigarettes Q uit: 1987 Smokeless Tobacco: Never Alcohol Use Standard Drinks/Week Comments Yes 0 (1 standard drink = 0.6 oz pur e alcohol) 1-2 nightly Comments No Sex and Gender Information Value Date Recorded Sex Assigned at Female 08/10/2017 9:57 AM EDT Legal Sex Female 10:10 PM EDT Gender Identity Female 08/10/2017 9:57 AM EDT Sexual Orientation Straight 08/10/2017 9: 57 AM EDT documented as of this encounter Plan of Treatment Upcoming Encounters Date Type Department Care Team (Late st Contact Info) Description 08/08/2024 Procedure Pass [address] [address] 09/19/2024 Procedure Pass [facility] [address] [place] [address] 01/26/2025 11:45 AM EST Appointment [address] [address] Nasir Nevarez DO [address] [place] [address] [email or web address] 02/20/2025 12:45 PM EST Appointment [facility] [address] [place] [address] Ivan Manzo MD [address] [place] [address] [email or web address] 03/17/2025 11:00 AM EST Appointment [address] [address] Nasir Nevarez DO 179 [place] [address] [email or web address] 03/22/2025 11:20 AM EST Office Visit [facility] [address] [place] [address] 3rd Floor, [address] [address] Ivan Manzo MD [address] [place] [address] [email or web address] documented as of this encounter Visit Diagnoses Not on filedocumented in this encounter Care Teams Security Professionals Relationship Specialty Start Date End Date Nasir Nevarez DO PCP - General 11/24/16 Nasir Nevarez DO Historical LMR Provider 11/24/16 Sara Benitez MD [address] [place] [address], 2nd [place] [address] Historical LMR Provider 11/24/16 02/16/21 Raymundo Chavez MD [address] [place] [address] Historical LMR Provider 11/24/16 Najma Gary NP [address] [place] [address] [email or web address] Historical LMR Provider 11/24/16 2 Sherley Baca ENGINE MONITOR [address] [place] [address] Historical LMR Provider 11/24/16 2 Kristine Bianchi MD [address] [place] [address] Historical LMR Provider 11/24/16 02/16/21 William Jarquin DPM [address] [place] [address] Historical LMR Provider 11/24/1602/16/21 Jake Callahan MD [address] [place] [address] Historical LMR Provider 11/24/16 2 Chelsey Jones NP [address] [place] [address] Historical LMR Provider 11/24/16 2 documented as of this encounter Additional Source Comments The information contained in this document represents components of the legal health record. It is not the complete legal health record.[facility]
--- OUTSIDE RECORDS SUMMARY | 2024-12-21 11:25 | XMS_ITS | Encounter Summary ---
Author Organization [facility] Address [address] [facility] [address] [place] [address] Phone Care Team Providers Care Car Lot Attendant Name Role Phone Nasir Nevarez DO Unavailable Sara Benitez MD Unavailable [phone] Raymundo Chavez MD Unavailable Najma Gary SCOW CAPTAIN Unavailable Sherley Baca SCOW CAPTAIN Unavailable [phone] Kristine Bianchi MD Unavailable William Jarquin DPM Unavailable Unavailable Jake Callahan MD Unavailable [phone] Chelsey Jones SCOW CAPTAIN Unavailable [phone] Nasir Nevarez DO Primary Care Provider [phone] Encounter Details Date Type Department Care Team (Late st Contact Info) Description 02/09/2020 Procedure Pass [facility] 30 [place] [address] Social History Tobacco Use Types Packs/Day Years [...] st Contact Info) Description 08/08/2024 Procedure Pass [address] [address] 09/19/2024 Procedure Pass [facility] [address] [place] [address] 01/26/2025 11:45 AM EST Appointment [address] [address] Nasir Nevarez DO [address] [place] [address] 02/20/2025 12:45 PM EST Appointment [facility] [address] [place] [address] Ivan Manzo MD [address] [place] [address] 03/17/2025 11:00 AM EST Appointment [address] [address] Nasir Nevarez, 179 [place] [address] 03/22/2025 11:20 AM EST Office Visit [facility] [address] [place] [address] 3rd Floor, [address] [address] Ivan Manzo MD [address] [place] [address] documented as of this encounter Visit Diagnoses Not on filedocumented in this encounter Care Teams Car Lot Attendant Relationship Specialty Start Date End Date Nasir Nevarez DO PCP - General 11/24/16 Nasir Nevarez DO Historical LMR Provider 11/24/16 Sara Benitez MD [address] [place] [address], [facility] [place] [address] [email or web address] Historical LMR Provider 11/24/16 02/16/21 Raymundo Chavez MD [address] [place] [address] Historical LMR Provider 11/24/16 Najma Gary NP [address] [place] [address] [email or web address] Historical LMR Provider 11/24/16 2 Sherley Baca NP [address] [place] [address] Historical LMR Provider 11/24/16 2 Kristine Bianchi MD [address] [place] [address] Historical LMR Provider 11/24/16 02/16/21 William Jarquin DPM [address] [place] [address] Historical LMR Provider 11/24/1602/16/21 Jake Callahan MD [address] [place] [address] Historical LMR Provider 11/24/16 2 Chelsey Jones NP [address] [place] [address] Historical LMR Provider 11/24/16 2 documented as of this encounter Additional Source Comments The information contained in this document represents components of the legal health record. It is not the complete legal health record.[facility]
--- OUTSIDE RECORDS SUMMARY | 2024-12-21 11:26 | XMS_ITS | Encounter Summary ---
Author Organization [facility] Address [address] [place] [address] Phone Care Team Providers Care Laborer Hoisting Name Role Phone Nasir Nevarez DO Unavailable MichNasir ramirez Primary Care Provider [phone] Encounter Details Date Type Department Care Team (Late st Contact Info) Description 05/07/2022 Procedure Pass [place] Admitting Dept - Virtual Department [address] [place] [address] Social History Tobacco Use Types Packs/Day Years [...] st Contact Info) Description 08/08/2024 Procedure Pass [address] [address] 09/19/2024 Procedure Pass [facility] [place] [address] [place] [address] 01/26/2025 11:45 AM EST Appointment [address] [place] [address] Nasir Nevarez, DO [address] [facility] [place] [address] [email or web address] 02/20/2025 12:45 PM EST Appointment [facility] [address] [place] [address] Ivan Manzo MD [address] [place] [address] [email or web address] 03/17/2025 11:00 AM EST Appointment [facility], [address] [address] Roque Nasir Ze, DO [address] [facility] [address] [email or web address] 03/22/2025 11:20 AM EST Office Visit [facility] [address] [place] [address] Dr 3rd Floor, [address] [address] Ivan Manzo MD [address] [place] [address] [email or web address] documented as of this encounter Visit Diagnoses Not on filedocumented in this encounter Care Teams Laborer Hoisting Relationship Specialty Start Date End Date Nasir Nevarez DO PCP - General 11/24/16 Nasir Nevarez DO [email or web address] Historical LMR Provider 11/24/16 documented as of this encounter Additional Source Comments The information contained in this document represents components of the legal health record. It is not the complete legal health record.[facility]
--- OUTSIDE RECORDS SUMMARY | 2024-12-21 11:26 | XMS_ITS | Encounter Summary ---
Author Organization [facility] Address [address] [facility] [address] [place] [address] Phone Care Team Providers Care Burnisher Name Role Phone MichNasir ramirez Unavailable Nasir Nevarez Ze Primary Care Provider [phone] Encounter Details Date Type Department Care Team (Late st Contact Info) Description 07/27/2023 Procedure Pass [facility], [facility] 30 [place] [address] Social History Tobacco Use Types Packs/Day Years Used Date Smoking Tobacco: Former Cigarettes 0.5 25 0 02/09/1961 - 02/09/1986 Smokeless Tobacco: Never Alcohol Use Standard Drinks/Week Comments Not Currently 7 (1 standard drink = 0.6 oz pur e alcohol) 1 per day Education Answer Date Recorded Are you interested in more education? Not on km e 06/06/2022 Are you concerned about learning? Not on file 06/06/2022 No 06/06/2022 No 06/06/2022 Digital Access Answer Date Recorded No 07/05/2022 No 07/05/2022 Reliable internet access at home? Not on file 07/05/2022 Device with a working camera? Not on file Intimate Partner Violence Answer Date R ecorded Are you denied basic needs s uch as food, clothing, or medical care? No 01/18/2023 In the past 12 months have y ou been in a relationship with a person who hurts, threatens, or tries to control you? No 01/18/2023 Are you denied basic needs s uch as food, clothing, or medical care? No 01/18/2023 In the past 12 months have y ou been in a relationship with a person who hurts, threatens, or tries to control you? No 01/18/2023 Comments No Sex and Gender Information Value Date Recorded Sex Assigned at Female 08/10/2017 9:57 AM EDT Legal Sex Female 10:10 PM EDT Gender Identity Female 08/10/2017 9:57 AM EDT Sexual Orientation Straight 08/10/2017 9: 57 AM EDT documented as of this encounter Plan of Treatment Upcoming Encounters Date Type Department Care Team (Late st Contact Info) Description 08/08/2024 Procedure Pass [address] [address] 09/19/2024 Procedure Pass [facility] [address] [place] [address] 01/26/2025 11:45 AM EST Appointment [address] [address] Nasir Nevarez, DO [address] [facility] [place] [address] 02/20/2025 12:45 PM EST Appointment [facility] [address] [place] [address] Ivan Manzo MD [address] [place] [address], [address] [place] [address] 03/17/2025 11:00 AM EST Appointment [address] [address] Nasir Nevarez, DO [address] [facility] [place] [address] 03/22/2025 11:20 AM EST Office Visit [facility] [address] [place] [address] 3rd Floor, [address] [place] [address] Ivan Manzo MD [address] [place] [address], [address] [place] [address] [email or web address] documented as of this encounter Visit Diagnoses Not on filedocumented in this encounter Care Teams Burnisher Relationship Specialty Start Date End Date Nasir Nevarez DO [email or web address] PCP - General 11/24/16 Nasir Nevarez DO [email or web address] Historical LMR Provider 11/24/16 documented as of this encounter Additional Source Comments The information contained in this document represents components of the legal health record. It is not the complete legal health record.[facility]
--- OUTSIDE RECORDS SUMMARY | 2024-12-21 11:26 | XMS_ITS | Encounter Summary ---
Author Organization [facility] Address [address] [place] [address] Phone Care Team Providers Care Journeyman Electrician Pv Installer Name Role Phone Nasir Nevarez DO Unavailable Sara Benitez MD Unavailable [phone] Raymundo Chavez MD Unavailable Najma Gary NEON GLASS BENDER Unavailable Sherley Baca NEON GLASS BENDER Unavailable [phone] Kristine Bianchi MD Unavailable William Jarquin DPM Unavailable Unavailable Jake Callahan MD Unavailable [phone] Chelsey Jones NEON GLASS BENDER Unavailable [phone] Nasir Nevarez DO Primary Care Provider [phone] Encounter Details Date Type Department Care Team (Late st Contact Info) Description 01/13/2020 Procedure Pass [facility] Endoscopy Admitting Dept Virtual Department 30 [place] [address] Social History Tobacco Use Types Packs/Day Years [...] Contact Info) Description 08/08/2024 Procedure Pass [address] [address] 09/19/2024 Procedure Pass Echo Lab [address] [place] [address] 01/26/2025 11:45 AM EST Appointment [address] [address] Nasir Nevarez DO [address] [place] [address] 02/20/2025 12:45 PM EST Appointment Echo Lab [address] [place] [address] Ivan Manzo MD [address] [place] [address] 03/17/2025 11:00 AM EST Appointment [address] [address] Nasir Nevarez DO 179 [place] [address] 03/22/2025 11:20 AM EST Office Visit [facility] [address] [place] [address] 3rd Floor, [address] [address] Ivan Manzo MD [address] [place] [address] documented as of this encounter Visit Diagnoses Not on filedocumented in this encounter Care Teams Journeyman Electrician Pv Installer Relationship Specialty Start Date End Date Nasir Nevarez DO PCP - General 11/24/16 Nasir Nevarez DO Historical LMR Provider 11/24/16 Sara Benitez MD [address] [place] [address], 2nd [place] [address] Historical LMR Provider 11/24/16 02/16/21 Raymundo Chavez MD [address] [place] [address] Historical LMR Provider 11/24/16 Najma Gary NP [address] [place] [address] [email or web address] Historical LMR Provider 11/24/16 2 Sherley Baca NEON GLASS BENDER [address] [place] [address] Historical LMR Provider 11/24/16 2 Kristine Bianchi MD [address] [place] [address] Historical LMR Provider 11/24/16 02/16/21 William Jarquin DPM [address] [place] [address] Historical LMR Provider 11/24/1602/16/21 Jake Callahan MD [address] [place] [address] Historical LMR Provider 11/24/16 2 Chelsey Jones NP [address] [place] [address] Historical LMR Provider 11/24/16 2 documented as of this encounter Additional Source Comments The information contained in this document represents components of the legal health record. It is not the complete legal health record.[facility]
--- OUTSIDE RECORDS SUMMARY | 2024-12-21 11:26 | XMS_ITS | Encounter Summary ---
Author Organization [facility] Address [address] [place] [address] Phone Care Team Providers Care Entrepreneurship Program Director Name Role Phone Nasir Nevarez DO Unavailable Sara Benitez MD Unavailable [phone] Raymundo Chavez MD Unavailable Najma Gary ROVING TELLER Unavailable Sherley Baca ROVING TELLER Unavailable [phone] Kristine Bianchi MD Unavailable William Jarquin DPM Unavailable Unavailable Jake Callahan MD Unavailable [phone] Chelsey Jones ROVING TELLER Unavailable [phone] Nasir Nevarez DO Primary Care Provider [phone] Encounter Details Date Type Department Care Team (Late st Contact Info) Description 08/07/2017 Ancillary Orders Virtual Department 30 [place] [address] Kimberly Galvin, ANTHONY 12 [place] [address] [email or web address] Palpitations Social History Tobacco Use Types Packs/Day Years [...] Contact Info) Description 08/08/2024 Procedure Pass [address] [address] 09/19/2024 Procedure Pass Echo Lab [address] [place] [address] 01/26/2025 11:45 AM EST Appointment [facility] Bone Density [address] [address] Nasir Nevarez, DO 179 [place] [address] 02/20/2025 12:45 PM EST Appointment Echo Lab [place] [address] [place] [address] Ivan Manzo MD [address] [place] [address] 03/17/2025 11:00 AM EST Appointment [address] [address] Nasir Nevarez, DO 179 [place] [address] 03/22/2025 11:20 AM EST Office Visit [facility] [address]rd Floor, [address] [address] Ivan Manzo MD [address] [place] [address] documented as of this encounter Results * Holter Monitor 24 Hours (08/11/2017 3:22 PM EDT) Total Beats 45,514 [facility] Ventricular Ectopy Total Beats 54 [facility] Ventricular Ectopy Single Beats 52 [facility] Ventricular Pair 1 [facility] Ventricular Runs 0 [facility] Supraventricular Total Beats 59 [facility] Supraventricular Ectopic Single Beats 34 [facility] Supraventricular Pairs 2 [facility] Supraventricular Runs 1 [facility] Supraventricular Longest Run 21 [facility] Longest Supraventricular Run Rate 131 BPM [facility] Fastest Supraventricular Run Rate 131 BPM [facility] PHS CV HOLTER SUPRAVENTRICULAR FASTEST RUN 21 [facility] Mean Heart Rate 99 BPM [facility] Maximum Heart Rate 169 BPM [facility] Minimum Heart Rate 57 BPM [facility] Longest RR 1.696 S [facility] Anatomical Region Laterality Modality Heart Other 08/10/2017 9:28 AM EDT 08/11/2017 3:24 PM EDT Narrative 08/14/2017 5:49 PM EDT 24 hour monitor: No symptoms reported. HEART RATES 57 MIN at 11:59:41 10-AUG-2017 99 AVG 169 MAX at 11:03:05 10-AUG-2017 LONGEST RR 1.696 sec at 11:42:39 10-AUG-2017 Rare PVCs. Isolated PACs. Episodes of atrial fibrillation present, some brief, some lasting several hours. Several sinus node recovery times normal. Runs of atrial tachycardia present. Impression: Abnormal 24 hour monitor. No symptoms reported. Paroxysmal atrial fibrillation present. Kimberly Galvin CNP [facility] ORDERAB LES Final Result documented in this encounter Visit Diagnoses Diagnosis Palpitations Palpitations documented in this encounter Care Teams Entrepreneurship Program Director Relationship Specialty Start Date End Date Nasir Nevarez DO [email or web address] PCP - General 11/24/16 Nasir Nevarez DO Historical LMR Provider 11/24/16 Sara Benitez MD [address] [place] [address], 2nd [place] [address] [email or web address] Historical LMR Provider 11/24/16 02/16/21 Raymundo Chavez MD [address] [place] [address] Historical LMR Provider 11/24/16 Najma Gary NP [address] [place] [address] [email or web address] Historical LMR Provider 11/24/16 2 Sherley Baca NP [address] [place] [address] Historical LMR Provider 11/24/16 2 Kristine Bianchi MD [address] [place] [address] Historical LMR Provider 11/24/16 02/16/21 William Jarquin DPM [address] [place] [address] Historical LMR Provider 11/24/1602/16/21 Jake Callahan MD [address] [place] [address] Historical LMR Provider 11/24/16 2 Chelsey Jones NP [address] [place] [address] Historical LMR Provider 11/24/16 2 documented as of this encounter Additional Source Comments The information contained in this document represents components of the legal health record. It is not the complete legal health record.[facility]
--- OUTSIDE RECORDS SUMMARY | 2024-12-21 11:27 | XMS_ITS | Encounter Summary ---
Author Organization [facility] Address [address] [place] [address] Phone Care Team Providers Care Cake Wrapper Name Role Phone Nasir Nevarez DO Unavailable Sara Benitez MD Unavailable Raymundo Chavez MD Unavailable [phone] Najma Gary PHOTONICS ENGINEER Unavailable Sherley Baca PHOTONICS ENGINEER Unavailable [phone] Kristine Bianchi MD Unavailable William Jarquin DPM Unavailable Unavailable Jake Callahan MD Unavailable [phone] Chelsey Jones PHOTONICS ENGINEER Unavailable Nasir Nevarez DO Primary Care Provider [phone] Encounter Details Date Type Department Care Team (Latest Contact Info) Description 02/07/2021 Transcribe Orders [facility] Phleb [address] [address] Mohit Kennedy MD [address] [facility] [address] [place], [place] [id number] Stage 3a chronic kidney disease (Primary Dx) Social History Tobacco Use Types Packs/Day Years Used Date Smoking Tobacco: Former Cigarettes Q uit: 1986 Smokeless Tobacco: Never Alcohol Use Standard Drinks/Week Comments Yes 0 (1 standard drink = 0.6 oz pur e alcohol) 1-2 drinks a night Comments No Sex and Gender Information Value Date Recorded Sex Assigned at Female 08/10/2017 9:57 AM EDT Legal Sex Female 10:10 PM EDT Gender Identity Female 08/10/2017 9:57 AM EDT Sexual Orientation Straight 08/10/2017 9: 57 AM EDT documented as of this encounter Plan of Treatment Upcoming Encounters Date Type Department Care Team (Late st Contact Info) Description 08/08/2024 Procedure Pass [address] [address] 09/19/2024 Procedure Pass Echo Lab [address] [place] [address] 01/26/2025 11:45 AM EST Appointment [address] [address] Nasir Nevarez, DO 179 [place] [address] [email or web address] 02/20/2025 12:45 PM EST Appointment Echo Lab [place] [address] [place] [address] Ivan Manzo MD [address] [place] [address], [address] [address] 03/17/2025 11:00 AM EST Appointment [address] [address] Nasir Nevarez, DO 179 [place] [address] 03/22/2025 11:20 AM EST Office Visit [facility] [address] 3rd Floor, [address] [place] [address] Ivan Manzo MD [address] [place] [address], [address] [address] [email or web address] documented as of this encounter Results * TOTAL PROTEIN CREATININE RATIO, RANDOM URINE (02/11/2021 7:37 PM EST) URINE TOTAL PROTEIN 17.3 mg/dL [facility] URINE CREATININE 121 mg/dL [facility] URINE TP CRE RATIO 0.14 0 - 0.19 [facility] Urine (Urine) 02/11/2021 7:3 7 PM EST 02/11/2021 7:39 PM EST us Mohit Kennedy MD LAB URINE ORDERABLES Final Resul t Performing Organization Address City/[facility]/ZIP Co de Phone Number [address] [address] * Uric acid (02/07/2021 11:17 AM EST) Pathologist [facility] URIC ACID 3.4 2.4 - 7.0 mg/dL [facility] Blood 02/07/2021 11:1 7 AM EST 02/07/2021 11:25 AM EST us Mohit Kennedy MD LAB BLOOD BKR ORDERABLES Final R esult Performing Organization Address City/[facility]/ZIP Co de Phone Number [address] [address] * (ABNORMAL) Renal panel (02/07/2021 11:17 AM EST) SODIUM 144 133 - 146 mmol/L [facility] POTASSIUM 4.5 3.3 - 5.1 mmol/L [facility] CHLORIDE 106 96 - 108 mmol/L [facility] CO2 26 21 - 35 mmol/L [facility] GLUCOSE 133(H) 70 - 99 mg/dL [facility] BUN 21(H) 6 - 19 mg/dL [facility] CREATININE 1.60(H) 0.5 - 1.5 mg/dL [facility] CALCIUM 9.9 8.4 - 10.3 mg/dL [facility] PHOSPHORUS 4.0 2.7 - 4.5 mg/dL [facility] ALBUMIN 4.3 3.9 - 4.8 g/dL [facility] EGFR 33(L) >59 mL/min/1.7 3m2 [facility] Comment:Estimated glomerular filtration rate calculated using the CKD-EPI refit equation. ANION GAP 17 10 - 20 mmol/L [facility] Blood 02/07/2021 11:1 7 AM EST 02/07/2021 11:25 AM EST us Mohit Kennedy MD LAB BLOOD BKR ORDERABLES Final R esult [facility] 30 [place] [address] documented in this encounter Visit Diagnoses Diagnosis Stage 3a chronic kidney disease- Primary documented in this encounter Care Teams Cake Wrapper Relationship Specialty Start Date End Date Nasir Neavrez DO PCP - General 11/24/16 Nasir Nevarez DO Historical LMR Provider 11/24/16 Sara Benitez MD [address] [place] [address] Historical LMR Provider 11/24/16 02/16/21 Raymundo Chavez MD 115 [place] [address] Historical LMR Provider 11/24/16 Najma Gary NP [address] [place] [address] [email or web address] Historical LMR Provider 11/24/16 2 Sherley Baca NP [address] [place] [address] Historical LMR Provider 11/24/16 2 Kristine Bianchi MD [address] [place] [address], [facility] [address] [place] [address] [email or web address] Historical LMR Provider 11/24/16 02/16/21 William Jarquin DPM 22 [place] [address] Historical LMR Provider 11/24/1602/16/21 Jake Callahan MD [address] [place] [address] Historical LMR Provider 11/24/16 2 Chelsey Jones NP [address] [place] [address] Historical LMR Provider 11/24/16 2 documented as of this encounter Additional Source Comments The information contained in this document represents components of the legal health record. It is not the complete legal health record.[facility]
--- OUTSIDE RECORDS SUMMARY | 2024-12-21 11:27 | XMS_ITS | Encounter Summary ---
Author Organization [facility] Address [address] [facility] [address] [place] [address] Phone Care Team Providers Care Strategic Accounts Manager Name Role Phone Nasir Nevarez DO Unavailable Sara Benitez MD Unavailable Raymundo Chavez MD Unavailable Najma Gary DEPOT AGENT Unavailable Sherley Baca DEPOT AGENT Unavailable [phone] Kristine Bianchi MD Unavailable William Jarquin DPM Unavailable Unavailable Jake Callahan MD Unavailable [phone] Chelsey Jones DEPOT AGENT Unavailable Nasir Nevarez DO Primary Care Provider [phone] Encounter Details Date Type Department Care Team (Late st Contact Info) Description 07/06/2020 Ancillary Orders Virtual Department 30 [place] [address] Nasir Nevarez DO 179 [facility] [place] [address] [email or web address] Breast screening Social History Tobacco Use Types [...] st Contact Info) Description 08/08/2024 Procedure Pass [address] [address] 09/19/2024 Procedure Pass Echo Lab [address] [place] [address] 01/26/2025 11:45 AM EST Appointment [address] [address] Nasir Nevarez, DO 179 [place] [address] [email or web address] 02/20/2025 12:45 PM EST Appointment Echo Lab [address] [place] [address] Ivan Manzo MD [address] [place] [address] 03/17/2025 11:00 AM EST Appointment [address] [address] Nasir Nevarez, DO [address] [facility] [place] [address] 03/22/2025 11:20 AM EST Office Visit [facility] [address] [place] [address] 3rd Floor, [address] [address] Ivan Manzo MD [address] [place] [address] [email or web address] documented as of this encounter Results * BI MAMMOGRAM SCREENING WITH TOMOSYNTHESIS WITH CAD (BILATERAL) (10/04/2020 10:41 AM EDT) Anatomical Region Laterality Modality Breast Left, Breast Right, Breast Bilateral Bila teral Mammography 10/04/2020 1:0 5 PM EDT Impressions 10/04/2020 1:11 PM EDT No mammographic signs of malignancy. Annual screening is recommended. BI-RADS CATEGORY: 2 - Benign finding. DENSITY: The breast tissue is heterogeneously dense, which could obscure a lesion on mammography. Narrative 10/04/2020 1:11 PM EDT Bilateral mammography is performed in conjunction with computed aided detection. 3-D tomography along with 2-D C view imaging was also performed. Comparison made to previous dated as far back as 08/22/2014 and as recent as 10/04/2019. No suspicious masses, areas of architectural distortion or suspicious microcalcifications. There is a coarse calcification in the mid-anterior upper right breast with benign characteristics. Procedure Note Conor Vasquez MD - 10/04/2020 Bilateral mammography is performed in conjunction with computed aideddetection. 3-D tomography along with 2-D C view imaging was alsoperformed. Comparison made to previous dated as far back as 08/22/2014 andas recent as 10/04/2019. No suspicious masses, areas of architectural distortion or suspiciousmicrocalcifications. There is a coarse calcification in the mid-anteriorupper right breast with benign characteristics. IMPRESSION: No mammographic signs of malignancy. Annual screening is recommended. BI-RADS CATEGORY: 2 - Benign finding. DENSITY: The breast tissue is heterogeneously dense, which could obscurea lesion on mammography. us Nasir Nevarez DO IMG MG EXAMS Final Result documented in this encounter Visit Diagnoses Diagnosis Breast screening Breast screening, unspecified Breast screening Breast screening, unspecified documented in this encounter Care Teams Strategic Accounts Manager Relationship Specialty Start Date End Date Nasir Nevarez DO PCP - General 11/24/16 Nasir Nevarez DO Historical LMR Provider 11/24/16 Sara Benitez MD [address] [place] [address], 2nd [place] [address] Historical LMR Provider 11/24/16 02/16/21 Raymundo Chavez MD [address] [place] [address] Historical LMR Provider 11/24/16 Najma Gary DEPOT AGENT [address] [place] [address] [email or web address] Historical LMR Provider 11/24/16 2 Sherley Baca DEPOT AGENT [address] [place] [address] Historical LMR Provider 11/24/16 2 Kristine Bianchi MD [address] [place] [address] Historical LMR Provider 11/24/16 02/16/21 William Jarquin DPM [address] [place] [address] Historical LMR Provider 11/24/1602/16/21 Jake Callahan MD [address] [place] [address] Historical LMR Provider 11/24/16 2 Chelsey Jones NP [address] [place] [address] Historical LMR Provider 11/24/16 2 documented as of this encounter Additional Source Comments The information contained in this document represents components of the legal health record. It is not the complete legal health record.[facility]
--- OUTSIDE RECORDS SUMMARY | 2024-12-21 11:27 | XMS_ITS | Encounter Summary ---
Author Organization [facility] Address [address] [place] [address] Phone Care Team Providers Care Lead Coater Name Role Phone Nasir Nevarez DO Unavailable MichNasir ramirez Primary Care Provider [phone] Encounter Details Date Type Department Care Team (Latest Contact Info) Description 05/30/2021 Transcribe Orders Virtual Department [address] [place] [address] Jessica Bermudez PA [address] [facility] [place] [address] Left knee pain, unspecified chronicity (Primary Dx) Social History Tobacco Use Types [...] st Contact Info) Description 08/08/2024 Procedure Pass [facility] 30 [place] [address] 09/19/2024 Procedure Pass Echo Lab [address] [place] [address] 01/26/2025 11:45 AM EST Appointment [address] [address] Nasir Nevarez, DO 179 [facility] [place] [address] [email or web address] 02/20/2025 12:45 PM EST Appointment Echo Lab [place] [address] [place] [address] Ivan Manzo MD [address] [place] [address] [email or web address] 03/17/2025 11:00 AM EST Appointment [address] [address] Nasir Nevarez, DO 179 [facility] [place] [address] [email or web address] 03/22/2025 11:20 AM EST Office Visit [facility] [address] [place] [address] 3rd Floor, [address] [address] Ivan Manzo MD [address] [place] [address] documented as of this encounter Results * XR KNEE 4 OR MORE VIEWS (LEFT) (06/04/2021 9:21 AM EDT) Anatomical Region Laterality Modality Knee Left Computed Radiogr aphy 06/05/2021 3:04 PM EDT Impressions 06/05/2021 3:16 PM EDT 1.Bilateral CPPD/pseudogout. 2.Moderate size left knee joint effusion and joint loose bodies. 3.Potential left knee joint Murry's cyst. 4.Progressive moderate right knee osteoarthritis. Narrative 06/05/2021 3:16 PM EDT COMPARISON: Right knee radiographs 04/13/2018. LEFT KNEE RADIOGRAPH FINDINGS: 5 images obtained including bilateral AP standing views. Chronic moderate diffuse osteopenia. No acute fracture or malalignment. Progressive moderate right medial knee compartment joint space narrowing. Left knee joint spaces are preserved. Extensive bilateral meniscus calcification indicative of chondrocalcinosis with extrusion of the medial meniscus from the joint space bilaterally and lateral meniscus from the left knee joint space. No destructive or suspicious bone lesions. Moderate size joint effusion and suprapatellar joint loose bodies. There is soft tissue fullness in the popliteal fossa which may be indicative of a Murry's cyst. Procedure Note Ricki Schmitz MD - 06/05/2021 COMPARISON: Right knee radiographs 04/13/2018. LEFT KNEE RADIOGRAPH FINDINGS: 5 images obtained including bilateral AP standing views. Chronic moderate diffuse osteopenia. No acute fracture or malalignment.Progressive moderate right medial knee compartment joint space narrowing.Left knee joint spaces are preserved. Extensive bilateral meniscuscalcification indicative of chondrocalcinosis with extrusion of the medialmeniscus from the joint space bilaterally and lateral meniscus from theleft knee joint space. No destructive or suspicious bone lesions. Moderatesize joint effusion and suprapatellar joint loose bodies. There is softtissue fullness in the popliteal fossa which may be indicative of aBaker's cyst. IMPRESSION: 1.Bilateral CPPD/pseudogout. 2.Moderate size left knee joint effusion and joint loose bodies. 3.Potential left knee joint Murry's cyst. 4.Progressive moderate right knee osteoarthritis. Jessica GUTIERREZ IMG XR LOWER EXTREMITY Caitlyn l Result documented in this encounter Visit Diagnoses Diagnosis Left knee pain, unspecified chronicity- Primary Left knee pain, unspecified chronicity documented in this encounter Care Teams Lead Coater Relationship Specialty Start Date End Date Nasir Nevarez DO PCP - General 11/24/16 Nasir Nevarez DO [email or web address] Historical LMR Provider 11/24/16 documented as of this encounter Additional Source Comments The information contained in this document represents components of the legal health record. It is not the complete legal health record.[facility]
--- OUTSIDE RECORDS SUMMARY | 2024-12-21 11:27 | XMS_ITS | Encounter Summary ---
Author Organization [facility] Address [address] [place] [address] Phone Care Team Providers Care Printed Circuit Boards Plasma Etcher Name Role Phone Nasir Nevarez DO Unavailable MichNasir ramirez Primary Care Provider [phone] Encounter Details Date Type Department Care Team (Late Contact Info) Description 07/26/2021 Procedure Pass [facility] [place] [place] [address] Social History Tobacco Use Types Packs/Day Years Used Date Smoking Tobacco: Former Cigarettes Q uit: 02/09/1986 Smokeless Tobacco: Never Alcohol Use Standard [...] Contact Info) Description 08/08/2024 Procedure Pass [address] [address] 09/19/2024 Procedure Pass Echo Lab [place] [place] [address] 01/26/2025 11:45 AM EST Appointment [address] [address] Nasir Nevarez, DO 179 [facility] [place] [address] [email or web address] 02/20/2025 12:45 PM EST Appointment Echo Lab [address] [place] [address] Ivan Manzo MD [address] [place] [address], [address] [address] [email or web address] 03/17/2025 11:00 AM EST Appointment [address] [address] Nasir Nevarez, DO 179 [facility] [place] [address] [email or web address] 03/22/2025 11:20 AM EST Office Visit [facility] [address] [place] [address] Dr 3rd Floor, [address] [place] [address] Ivan Manzo MD [address] [place] [address], [address] [address] [email or web address] documented as of this encounter Visit Diagnoses Not on filedocumented in this encounter Care Teams Printed Circuit Boards Plasma Etcher Relationship Specialty Start Date End Date Nasir Nevarez DO [email or web address] PCP - General 11/24/16 Nasir Nevarez DO [email or web address] Historical LMR Provider 11/24/16 documented as of this encounter Additional Source Comments The information contained in this document represents components of the legal health record. It is not the complete legal health record.[facility]
--- OUTSIDE RECORDS SUMMARY | 2024-12-21 11:27 | XMS_ITS | Encounter Summary ---
Author Organization [facility] Address [address] [place] [address] Phone Care Team Providers Care Gold Stamper Name Role Phone Michjames Nasir Kunz DO Unavailable Nasir Nevarez DO Primary Care Provider [phone] Reason for Referral * - Closed Specialty Diagnoses / Procedures Referred By Ashanti kurtz Referred To Contact Radiology Diagnoses PAD (peripheral artery disease) Procedures US Lower Extremity Arteries (DARCY) Physio Complete Unilat Jessica Bermudez PA Phone: tel: fax: Referral ID Status Reason Start Date Expiration Date Visits Re quested Visits Authorized [id number] Closed 11/29/2021 11/29/2022 1 1 Encounter Details Date Type Department Care Team (Late st Contact Info) Description 11/29/2021 Ancillary Orders [facility] [address] 3rd [place] [address] Jessica Bermudez PA [address] [place] [address] PAD (peripheral artery disease) Social History Tobacco Use Types Packs/Day Years [...] Contact Info) Description 08/08/2024 Procedure Pass [address] [address] 09/19/2024 Procedure Pass Echo Lab [address] [place] [address] 01/26/2025 11:45 AM EST Appointment [address] [address] Nasir Nevarez, DO 179 [place] [address] 02/20/2025 12:45 PM EST Appointment Echo Lab [address] [place] [address] Ivan Manzo MD [address] [place] [address] 03/17/2025 11:00 AM EST Appointment [address] [address] Nasir Nevarez, DO 179 [facility] [place] [address] 03/22/2025 11:20 AM EST Office Visit [facility] [address] [place] [address] 3rd Floor, [address] [address] Ivan Manzo MD [address] [place] [address] documented as of this encounter Results * US Lower Extremity Arteries (DARCY) Physio Complete Unilat (12/03/2021 1:35 PM EDT) Anatomical Region Laterality Modality Ultrasound Narrative 12/04/2021 9:04 AM EDT See scanned document. Procedure Note Jayden Cerda MD - 12/04/2021 See scanned document. us Jessica GUTIERREZ CV US VASCULAR Final Resul t documented in this encounter Visit Diagnoses Diagnosis PAD (peripheral artery disease) Unspecified peripheral vascular disease Non-pressure ulcer of left lower extremity, limited to breakdown of skin PAD (peripheral artery disease) Unspecified peripheral vascular disease documented in this encounter Care Teams Gold Stamper Relationship Specialty Start Date End Date Nasir Nevarez DO PCP - General 11/24/16 Nasir Nevarez DO Historical LMR Provider 11/24/16 documented as of this encounter Additional Source Comments The information contained in this document represents components of the legal health record. It is not the complete legal health record.[facility]
--- OUTSIDE RECORDS SUMMARY | 2024-12-21 11:27 | XMS_ITS | Encounter Summary ---
Author Organization [facility] Address [address] [facility] [address] [place] [address] Phone Care Team Providers Care Manager Continuous Improvement Name Role Phone Nasir Nevarez DO Unavailable Sara Benitez MD Unavailable [phone] Raymundo Chavez MD Unavailable Najma Gary FERN CUTTER Unavailable Sherley Baca FERN CUTTER Unavailable [phone] Kristine Bianchi MD Unavailable William Jarquin DPM Unavailable Unavailable Jake Callahan MD Unavailable [phone] Chelsey Jones FERN CUTTER Unavailable [phone] Nasir Nevarez DO Primary Care Provider [phone] Encounter Details Date Type Department Care Team (Late st Contact Info) Description 01/11/2020 Procedure Pass [facility], [facility] Scan - [facility] [address] [place] [address] Social History Tobacco Use Types Packs/Day Years [...] AM EDT documented as of this encounter Functional Status * Calculated C-SSRS Risk Score (Lifetime/Recent) Answer Date of Assessment Author No Risk Indicated 01/12/2020 8:59 AM Alexandra Fair, SHIVA * [place] Suicide Severity Rating Scale (Screener/Recent Self-Report) Question Answer Date of Assessment Author 1. Wish to be (Past 1 Month) No 020 8:59 AM Alexandra Fiar, SHIVA 2. Non-Specific Active Suici enzo Thoughts (Past 1 Month) No 01/12/2020 8:59 AM Gabriel Fair RN 6. Suicidal Behavior (Lifetime) No 0 8:59 AM Alexandra Fair RN documented as of this encounter Plan of Treatment Upcoming Encounters Date Type Department Care Team (Late st Contact Info) Description 08/08/2024 Procedure Pass [address] [address] 09/19/2024 Procedure Pass Echo Lab [address] [place] [address] 01/26/2025 11:45 AM EST Appointment [address] [address] Nasir Nevarez, DO 179 [facility] [place] [address] 02/20/2025 12:45 PM EST Appointment Echo Lab [address] [place] [address] Ivan Manzo MD 22 [facility], [address] [place] [address] 03/17/2025 11:00 AM EST Appointment [address] [address] Nasir Nevarez, DO 179 [facility] [address] 03/22/2025 11:20 AM EST Office Visit [facility] [address] [facility] 3rd Floor, [address] [place] [address] Ivan Manzo MD 22 [facility], [facility] 301 [place] [address] documented as of this encounter Visit Diagnoses Not on filedocumented in this encounter Care Teams Manager Continuous Improvement Relationship Specialty Start Date End Date Nasir Nevarez DO PCP - General 11/24/16 Nasir Nevarez DO Historical LMR Provider 11/24/16 Sara Benitez MD 15 [facility], 2nd [place] [address] Historical LMR Provider 11/24/16 02/16/21 Raymundo Chavez MD [address] [place] [address] Historical LMR Provider 11/24/16 Najma Gary NP [address] [place] [address] [email or web address] Historical LMR Provider 11/24/16 2 Sherley Baca NP [address] [place] [address] Historical LMR Provider 11/24/16 2 Kristine Bianchi MD [address] [place] [address] [email or web address] Historical LMR Provider 11/24/16 02/16/21 William Jarquin DPM [address] [place] [address] Historical LMR Provider 11/24/1602/16/21 Jake Callahan MD [address] [place] [address] Historical LMR Provider 11/24/16 2 Chelsey Jones NP [address] [place] [address] Historical LMR Provider 11/24/16 2 documented as of this encounter Additional Source Comments The information contained in this document represents components of the legal health record. It is not the complete legal health record.[facility]
--- OUTSIDE RECORDS SUMMARY | 2024-12-21 11:28 | XMS_ITS | Encounter Summary ---
Author Organization [facility] Address [address] [place] [facility] [address] [place] [address] Phone Care Team Providers Care Office Machine Installer Name Role Phone Nasir Nevarez Unavailable MichNasir ramirez Primary Care Provider [phone] Encounter Details Date Type Department Care Team (Late st Contact Info) Description 10/22/2022 Procedure Pass [facility] Admitting Dept Virtual Department [address] [place] [address] Social History Tobacco Use Types Packs/Day Years [...] st Contact Info) Description 08/08/2024 Procedure Pass [address] [address] 09/19/2024 Procedure Pass Echo Lab [address] [place] [address] 01/26/2025 11:45 AM EST Appointment [facility] Bone Density [address] [address] Nasir Nevarez, DO 179 [place] [address] [email or web address] 02/20/2025 12:45 PM EST Appointment Echo Lab [address] [place] [address] Ivan Manzo MD [address] [place] [address] [email or web address] 03/17/2025 11:00 AM EST Appointment [address] [address] Nasir Nevarez, DO [address] [place] [address] [email or web address] 03/22/2025 11:20 AM EST Office Visit [facility] [address] [place] [address] 3rd Floor, [address] [address] Ivan Manzo MD [address] [place] [address] [email or web address] documented as of this encounter Visit Diagnoses Not on filedocumented in this encounter Care Teams Office Machine Installer Relationship Specialty Start Date End Date Nasir Nevarez DO PCP - General 10/16/17 Nasir Nevarez DO Historical LMR Provider 11/24/16 documented as of this encounter Additional Source Comments The information contained in this document represents components of the legal health record. It is not the complete legal health record.[facility]
--- OUTSIDE RECORDS SUMMARY | 2024-12-21 11:28 | XMS_ITS | Encounter Summary ---
Author Organization [facility] Address [address] [place] [address] Phone Care Team Providers Care Renewable Energy Division Manager Name Role Phone Nasir Nevarez Unavailable MichNasir ramirez Primary Care Provider [phone] Encounter Details Date Type Department Care Team (Late st Contact Info) Description 07/15/2021 Procedure Pass [address] [address] Social History Tobacco Use Types Packs/Day Years [...] st Contact Info) Description 08/08/2024 Procedure Pass [address] [address] 09/19/2024 Procedure Pass Echo Lab [place] [address] [place] [address] 01/26/2025 11:45 AM EST Appointment [address] [place] [address] Nasir Nevarez, DO 179 [facility] [place] [address] 02/20/2025 12:45 PM EST Appointment Echo Lab [address] [place] [address] Ivan Manzo MD [address] [place] [address] 03/17/2025 11:00 AM EST Appointment [address] [address] Roque Nasir Ze, DO 179 [place] [address] 03/22/2025 11:20 AM EST Office Visit [facility] [address] [place] [address] Dr 3rd Floor, [address] [address] Ivan Manzo MD [address] [place] [address] documented as of this encounter Visit Diagnoses Not on filedocumented in this encounter Care Teams Renewable Energy Division Manager Relationship Specialty Start Date End Date Nasir Nevarez DO PCP - General 11/24/16 Nasir Nevarez DO Historical LMR Provider 11/24/16 documented as of this encounter Additional Source Comments The information contained in this document represents components of the legal health record. It is not the complete legal health record.[facility]
--- OUTSIDE RECORDS SUMMARY | 2024-12-21 11:28 | XMS_ITS | Encounter Summary ---
Author Organization [facility] Address [address] [place] [address] Phone Care Team Providers Care Radiographer Technologist Name Role Phone Nasir Nevarez DO Unavailable MichNasir ramirez Primary Care Provider [phone] Encounter Details Date Type Department Care Team (Late st Contact Info) Description 09/23/2021 Transcribe [facility] [address] [place] [address] 3rd Floor, [address] [place] [address] Jessica Bermudez PA [address] [address] Social History Tobacco Use Types Packs/Day Years [...] Contact Info) Description 08/08/2024 Procedure Pass [address] [address] 09/19/2024 Procedure Pass Echo Lab [address] [place] [address] 01/26/2025 11:45 AM EST Appointment [address] [address] Nasir Nevarez, DO 179 [facility] [place] [address] [email or web address] 02/20/2025 12:45 PM EST Appointment Echo Lab [place] [address] [place] [address] Ivan Manzo MD [address] [place] [address] [email or web address] 03/17/2025 11:00 AM EST Appointment [address] [address] Nasir Nevarez, DO 179 [place] [address] [email or web address] 03/22/2025 11:20 AM EST Office Visit [facility] [address] [place] [address] 3rd Floor, [address] [address] Ivan Manzo MD [address] [place] [address] [email or web address] documented as of this encounter Visit Diagnoses Not on filedocumented in this encounter Care Teams Radiographer Technologist Relationship Specialty Start Date End Date Nasir Nevarez DO [email or web address] PCP - General 11/24/16 Nasir Nevarez DO [email or web address] Historical LMR Provider 11/24/16 documented as of this encounter Additional Source Comments The information contained in this document represents components of the legal health record. It is not the complete legal health record.[facility]
--- OUTSIDE RECORDS SUMMARY | 2024-12-21 11:28 | XMS_ITS | Encounter Summary ---
Author Organization [facility] Address [address] [facility] [address] [place] [address] Phone Care Team Providers Care Rectangular Tank Cooper Name Role Phone Nasir Nevarez DO Unavailable Nasir Nevarez DO Primary Care Provider [phone] Encounter Details Date Type Department Care Team ([facility] st Contact Info) Description 07/27/2023 Transcribe Orders Virtual Department [address] [place] [address] Nasir Nevarez DO 179 [facility] [place] [address] [email or web address] Breast screening (Primary Dx) Social History Tobacco [...] st Contact Info) Description 08/08/2024 Procedure Pass [address] [address] 09/19/2024 Procedure Pass Echo Lab [address] [place] [address] 01/26/2025 11:45 AM EST Appointment [address] [address] Nasir Nevarez, DO 179 [facility] [place] [address] [email or web address] 02/20/2025 12:45 PM EST Appointment Echo Lab [address] [place] [address] Ivan Manzo MD 22 [facility], [address] [place] [address] [email or web address] 03/17/2025 11:00 AM EST Appointment [address] [address] Nasir Nevarez, DO 179 [facility] [place] [address] [email or web address] 03/22/2025 11:20 AM EST Office Visit [facility] [address] [facility] 3rd Floor, [address] [place] [address] Ivan Manzo MD 22 [facility], [address] [place] [address] documented as of this encounter Results * BI MAMMOGRAM SCREENING WITH TOMOSYNTHESIS WITH CAD (BILATERAL) (10/26/2023 11:51 AM EDT) Anatomical Region Laterality Modality Breast Left, Breast Right, Breast Bilateral Bila teral Mammography 10/26/2023 1:21 PM EDT Impressions 10/26/2023 6:40 PM EDT No mammographic evidence of malignancy in either breast. Annual screening mammography is recommended. BI-RADS 1 NEGATIVE The patient will be notified of the results and recommendations. Narrative 10/26/2023 6:40 PM EDT BI MAMMOGRAM SCREENING WITH TOMOSYNTHESIS WITH CAD (BILATERAL) Additional patient information: Screening. COMPARISON: Comparison is made with relevant prior imaging. Breast composition: The breast tissue is heterogeneously dense which may obscure small masses. FINDINGS: No abnormal masses, suspicious calcifications, or other significant findings are identified mammographically in either breast. Procedure Note Indira Wen MD - 10/26/2023 BI MAMMOGRAM SCREENING WITH TOMOSYNTHESIS WITH CAD (BILATERAL) Additional patient information: Screening. COMPARISON: Comparison is made with relevant prior imaging. Breast composition: The breast tissue is heterogeneously dense which mayobscure small masses. FINDINGS: No abnormal masses, suspicious calcifications, or other significantfindings are identified mammographically in either breast. IMPRESSION: No mammographic evidence of malignancy in either breast. Annual screening mammography is recommended. BI-RADS 1 NEGATIVE The patient will be notified of the results and recommendations. Nasir Nevarez DO IMG MG EXAMS Final Result documented in this encounter Visit Diagnoses Diagnosis Breast screening- Primary Breast screening, unspecified Breast screening Breast screening, unspecified documented in this encounter Care Teams Rectangular Tank Cooper Relationship Specialty Start Date End Date Nasir Nevarez DO [email or web address] PCP - General 11/24/16 MichNasir ramirez DO Historical LMR Provider 11/24/16 documented as of this encounter Additional Source Comments The information contained in this document represents components of the legal health record. It is not the complete legal health record.[facility]
--- OUTSIDE RECORDS SUMMARY | 2024-12-21 11:28 | XMS_ITS | Encounter Summary ---
Author Organization [facility] Address [address] [facility] [address] [place] [address] Phone Care Team Providers Care Pad Machine Offbearer Name Role Phone Nasir Nevarez DO Unavailable Nasir Nevarez DO Primary Care Provider [phone] Encounter Details Date Type Department Care Team (Late Contact Info) Description 02/28/2022 Prep for Surgery [facility] [address] [place] [address] Anastasiya Fleming MD [address] [place] [address] Orthopedics & Sports Medicine, [place] [address] [email or web address] Social History Tobacco Use Types Packs/Day Years [...] st Contact Info) Description 08/08/2024 Procedure Pass [facility], [address] [address] 09/19/2024 Procedure Pass Echo Lab [address] [place] [address] 01/26/2025 11:45 AM EST Appointment [address] [address] Nasir Nevarez, DO 179 [facility] [place] [address] 02/20/2025 12:45 PM EST Appointment Echo Lab [address] [place] [address] Ivan Manzo MD [address] [place] [address] 03/17/2025 11:00 AM EST Appointment [address] [address] Nasir Nevarez, DO 179 [facility] [place] [address] 03/22/2025 11:20 AM EST Office Visit [facility] [address] [place] [address] 3rd Floor, [address] [address] Ivan Manzo MD [address] [place] [address] documented as of this encounter Visit Diagnoses Not on filedocumented in this encounter Care Teams Pad Machine Offbearer Relationship Specialty Start Date End Date Nasir Nevarez DO PCP - General 11/24/16 Nasir Nevarez DO Historical LMR Provider 11/24/16 documented as of this encounter Additional Source Comments The information contained in this document represents components of the legal health record. It is not the complete legal health record.[facility]
--- OUTSIDE RECORDS SUMMARY | 2024-12-21 11:29 | XMS_ITS | Encounter Summary ---
Author Organization [facility], Address [address] [place] [address] Phone Care Team Providers Care Manager Actuarial Name Role Phone Nasir Nevarez DO Primary Care Provider [phone] Encounter Details Date Type Department Care Team (Late Contact Info) Description 09/30/2022 Documentation Only [facility] [address] [place] [address] Mohit Kennedy MD [address] [place] [address] 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 [address] documented as of this encounter Visit Diagnoses Not on filedocumented in this encounter Care Teams Manager Actuarial Relationship Specialty Start Date End Date Nasir Nevarez DO [address] [place] [address] PCP - General Internal Medicine 08/06/20 documented as of this encounter
--- OUTSIDE RECORDS SUMMARY | 2024-12-21 11:29 | XMS_ITS | Encounter Summary ---
Author Organization [facility] Address [address] [place] [address] Phone Care Team Providers Care Oil Transport Driver Name Role Phone Nasir Nevarez DO Unavailable Sara Benitez MD Unavailable Raymundo Chavez MD Unavailable [phone] Najma Gary HEADEND TECHNICIAN Unavailable Sherley Baca HEADEND TECHNICIAN Unavailable [phone] Kristine Bianchi MD Unavailable William Jarquin DPM Unavailable Unavailable Jake Callahan MD Unavailable [phone] Chelsey Jones HEADEND TECHNICIAN Unavailable Nasir Nevarez DO Primary Care Provider [phone] Encounter Details Date Type Department Care Team (Late st Contact Info) Description 04/13/2018 Ancillary Orders [facility], X-Ray - [facility] [address] [place] [address] Kimberly Galvin, STEAM FITTER HELPER [address] [place] [address] [phone] [email or web address] Right knee pain, unspecified chronicity Social History Tobacco Use Types Packs/Day Years [...] st Contact Info) Description 08/08/2024 Procedure Pass [address] [address] 09/19/2024 Procedure Pass Echo Lab [address] [place] [address] 01/26/2025 11:45 AM EST Appointment [address] [address] Nasir Nevarez, DO 179 [place] [address] 02/20/2025 12:45 PM EST Appointment Echo Lab [place] [address] [place] [address] Ivan Manzo MD [address] [place] [address], [address] [address] 03/17/2025 11:00 AM EST Appointment [address] [address] Nasir Nevarez, DO 179 [facility] [place] [address] 03/22/2025 11:20 AM EST Office Visit [facility] Rhonda 3rd Floor, [address] [place] [address] Ivan Manzo MD [address] [place] [address], [address] [address] [email or web address] documented as of this encounter Results * XR KNEE 4 OR MORE VIEWS (RIGHT) (04/13/2018 11:28 AM EST) Anatomical Region Laterality Modality Knee Right Radiographic Valerie ging 04/13/2018 11:3 3 AM EST Impressions 04/13/2018 11:38 AM EST Stable moderate degenerative joint disease/CPPD, 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 Progressive suprapatella bursa and gastrocnemius calcification. POS - [id number] Narrative 04/13/2018 11:38 AM EST HISTORY: As above. COMPARISON: 02/19/2014. RIGHT KNEE RADIOGRAPH FINDINGS: Five views obtained. No acute fracture or malalignment. Stable moderate tricompartmental joint space narrowing, small osteophytes and extensive meniscus chondrocalcinosis. Stable small suprapatella osteophyte. No destructive bone lesions or AVN. Chronic small joint effusion. Progressive calcifications of the suprapatella bursa and gastrocnemius tendon. Procedure Note Earnest Garza MD - 04/13/2018 HISTORY: As above. COMPARISON: 02/19/2014. RIGHT KNEE RADIOGRAPH FINDINGS: Five views obtained. No acute fracture or malalignment. Stable moderatetricompartmental joint space narrowing, small osteophytes and extensivemeniscus chondrocalcinosis. Stable small suprapatella osteophyte. Nodestructive bone lesions or AVN. Chronic small joint effusion.Progressive calcifications of the suprapatella bursa and gastrocnemiustendon. IMPRESSION: Stable moderate degenerative joint disease/CPPD, chronic small jointeffusion and quadriceps arthropathy. Progressive suprapatella bursa andgastrocnemius calcification. POS - [id number] Kimberly Galvin STEAM FITTER HELPER IMG XR LOWER EXTREMITY Caitlyn l Result documented in this encounter Visit Diagnoses Diagnosis Right knee pain, unspecified chronicity Right knee pain, unspecified chronicity documented in this encounter Care Teams Oil Transport Driver Relationship Specialty Start Date End Date Nasir Nevarez DO PCP - General 11/24/16 [email or web address] Historical LMR Provider 11/24/16 Sara Benitez MD [address] [facility], 2nd [place] [address] Historical LMR Provider 11/24/16 02/16/21 Raymundo Chavez MD [address] [place] [address] Historical LMR Provider 11/24/16 Najma Gary, HEADEND TECHNICIAN [address] [place] [address] [email or web address] Historical LMR Provider 11/24/16 2 Sherley Baca, HEADEND TECHNICIAN [address] [place] [address] Historical LMR Provider 11/24/16 2 Kristine Bianchi MD [address] [place] [address] [email or web address] Historical LMR Provider 11/24/16 02/16/21 William Jarquin DPM 22 [place] [address] Historical LMR Provider 11/24/1602/16/21 Jake Callahan MD [address] [place] [address] Historical LMR Provider 11/24/16 2 Chelsey Jones NP [address] [place] [address] Historical LMR Provider 11/24/16 2 documented as of this encounter Additional Source Comments The information contained in this document represents components of the legal health record. It is not the complete legal health record.[facility]
--- OUTSIDE RECORDS SUMMARY | 2024-12-21 11:29 | XMS_ITS | Encounter Summary ---
Author Organization [facility], Address [address] [place] [address] Phone Care Team Providers Care Boat Crew Deck Hand Name Role Phone Nasir Nevarez DO Primary Care Provider [phone] Encounter Details Date Type Department Care Team (Late Contact Info) Description 09/29/2022 Documentation Only [facility] Christopher [address] [place] [address] Mohit Kennedy MD [address] [place] [address] 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 [address] documented as of this encounter Visit Diagnoses Not on filedocumented in this encounter Care Teams Boat Crew Deck Hand Relationship Specialty Start Date End Date Nasir Nevarez DO 6 [place] [address] PCP - General Internal Medicine 08/06/20 documented as of this encounter
--- OUTSIDE RECORDS SUMMARY | 2024-12-21 11:29 | XMS_ITS | Encounter Summary ---
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 [address] documented as of this encounter Visit Diagnoses Not on filedocumented in this encounter Care Teams Route Returner Relationship Specialty Start Date End Date Nasir Nevarez DO [address] [facility] [place] [address] PCP - General Internal Medicine 08/06/20 documented as of this encounter
--- OUTSIDE RECORDS SUMMARY | 2024-12-21 11:29 | XMS_ITS | Clinical Summary ---
Author Organization [facility] [place], Address [address] REIS [address] [place] [address] Phone Care Team Providers Care Records Associate Name Role Phone MichNasir ramirez Primary Care Provider [phone] Allergies Active Allergy Reactions Criticality Noted Date [...] Encounters Date Type Department Care Team Description 10/27/2024 11:15 AM EDT Office Visit [facility] [address] Abdirizak [address] [place] [address] Mohit Kennedy MD Stage 3a chronic kidney disease (HCC) (Primary Dx); Hypertensive disorder; Vitamin D deficiency, not otherwise specified 10/11/2024 Orders Only [facility] Christopher [address] [place] [address] Roberta Bull Stage 3b chronic kidney disease (HCC) (Primary Dx); Vitamin D deficiency, not otherwise specified; Renal disorder due to type 2 diabetes mellitus <Diabetic nephropathy> (HCC); Iron deficiency anemia, not otherwise specified from Last 3 Months Immunizations Immunization Administration Dates Next Due Influenza (IM) Preservative Free 10/18/2019 Influenza Split High Dose Pr eservative Free IM 10/22/2018,12/10/2015 Influenza Vaccine, Quadrival ent, Adjuvanted 03/06/2021 Influenza, Quadrivalent, Wit h Preservative 03/06/2021,10/18/2019,10/22/2018,11/07 Influenza, Trivalent, Adjuvanted 11/07/2017,11/09 Influenza, Unspecified 11/29/2009 [email or web address] SARS-COV-2 11/24/2020,,05/19/2020,05/19,04/28/2020,04/28/2020,04/28/2020 Pneumococcal Conjugate 13-Valent 11/21/2016,11/09 Pneumococcal Polysaccharide 02/15/2018,0 02/15/2018,11/14/2012,11/14 Zoster 10/22/2018, 9,08/16/2018,08/16,08/16/2018,11/10/2011,11/10/2011 Family History Medical History Relation Comments Breast cancer Mother Cancer Mother Relation Status Comments Father Mother Social History Tobacco Use Types Packs/Day Years Used Date Smoking Tobacco: Former Cigarettes 27 1 960 - 0824 Tobacco Cessation:Counseling Given: Not Answered Alcohol Use [...] 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 [address] Health Maintenance Due Date Last Done Comments Diabetes: Hemoglobin A1C 08/08/2020 Diabetes: Ophthalmology Exam 08/08/2020 Diabetes: Pedal Pulse Checked 08/08/2020 Diabetes: Sensory Foot Exam 08/08/2020 Diabetes: Visual Foot Exam 08/08/2020 Influenza Vaccine (#1) 2024 2, 03/06/2021, 10/18/2019, Additional history exists Pneumococcal Vaccine: 50+ Years Completed 02/15/2018, 02/15/2018, 11/21/2016, Additional history exists Hepatitis B Vaccine Aged Out No longe r eligible based on patient's age to complete this topic Insurance [facility] Care Teams Records Associate Relationship Specialty Start Date End Date Nasir Nevarez DO 6 [place] [address] PCP - General Internal Medicine 08/06/20
--- OUTSIDE RECORDS SUMMARY | 2024-12-21 11:29 | XMS_ITS | Encounter Summary ---
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 [address] documented as of this encounter Visit Diagnoses Not on filedocumented in this encounter Care Teams Hospitality Director Relationship Specialty Start Date End Date Nasir Nevarez DO [address] [facility] [place] [address] PCP - General Internal Medicine 08/06/20 documented as of this encounter
--- OUTSIDE RECORDS SUMMARY | 2024-12-21 11:29 | XMS_ITS | Encounter Summary ---
Author Organization [facility] Address [address] [place] [address] Phone Care Team Providers Care Manager Banking Name Role Phone Nasir Nevarez DO Unavailable Sara Benitez MD Unavailable [phone] Raymundo Chavez MD Unavailable Najma Gary ROLL SHEETING CUTTER Unavailable Sherley Baca ROLL SHEETING CUTTER Unavailable [phone] Kristine Bianchi MD Unavailable William Jarquin DPM Unavailable Unavailable Jake Callahan MD Unavailable [phone] Chelsey Jones ROLL SHEETING CUTTER Unavailable Nasir Nevarez DO Primary Care Provider [phone] Encounter Details Date Type Department Care Team (Late st Contact Info) Description 04/13/2018 Ancillary Orders Virtual Department [address] [place] [address] Kimberly Galvin, TRANSMISSION REBUILDER [address] [place] [address] jo Right knee pain, unspecified chronicity Social History [...] st Contact Info) Description 08/08/2024 Procedure Pass [address] [address] 09/19/2024 Procedure Pass Echo Lab [address] [place] [address] 01/26/2025 11:45 AM EST Appointment [address] [address] Nasir Nevarez, DO [address] [place] [address] 02/20/2025 12:45 PM EST Appointment Echo Lab [address] [place] [address] Ivan Manzo MD [address] [place] [address], [address] [address] 03/17/2025 11:00 AM EST Appointment [address] [address] Nasir Nevarez, DO [address] [facility] [place] [address] 03/22/2025 11:20 AM EST Office Visit [facility] [address] [place] [address] 3rd Floor, [address] [place] [address] Ivan Manzo MD [address] [place] [address], [address] [address] documented as of this encounter Visit Diagnoses Diagnosis Right knee pain, unspecified chronicity documented in this encounter Care Teams Manager Banking Relationship Specialty Start Date End Date Michjames Nasir KunzDO PCP - General 11/24/16 Nasir Nevarez DO Historical LMR Provider 11/24/16 Sara Benitez MD [address] [place] [address] [email or web address] Historical LMR Provider 11/24/16 02/16/21 Raymundo Chavez MD [address] [place] [address] Historical LMR Provider 11/24/16 Najma Gary, ROLL SHEETING CUTTER [address] [place] [address] [email or web address] Historical LMR Provider 11/24/16 2 Sherley Baca, ROLL SHEETING CUTTER [address] [place] [address] Historical LMR Provider 11/24/16 2 Kristine Bianchi MD [address] [place] [address] [email or web address] Historical LMR Provider 11/24/16 02/16/21 William Jarquin DPM [address] [place] [address] [place] [address] Historical LMR Provider 11/24/1602/16/21 Jake Callahan MD [address] [place] [address] Historical LMR Provider 11/24/16 2 Chelsey Jones NP [address] [place] [address] Historical LMR Provider 11/24/16 2 documented as of this encounter Additional Source Comments The information contained in this document represents components of the legal health record. It is not the complete legal health record.[facility]
--- OUTSIDE RECORDS SUMMARY | 2024-12-21 11:29 | XMS_ITS | Encounter Summary ---
Author Organization [facility] Address [address] [place] [address] Phone Care Team Providers Care Game And Fish Protector Name Role Phone Nasir Nevarez Unavailable Nasir Nevarez Ze Primary Care Provider [phone] Encounter Details Date Type Department Care Team (Late st Contact Info) Description 07/29/2022 Procedure Pass [facility] [address] [place] [address] Social History Tobacco Use Types Packs/Day Years [...] st Contact Info) Description 08/08/2024 Procedure Pass [address] [address] 09/19/2024 Procedure Pass Echo Lab [address] [place] [address] 01/26/2025 11:45 AM EST Appointment [facility] Bone Density [address] [address] Nasir Nevarez, DO 179 [place] [address] 02/20/2025 12:45 PM EST Appointment Echo Lab [address] [place] [address] Ivan Manzo MD [address] [place] [address] 03/17/2025 11:00 AM EST Appointment [address] [address] Nasir Nevarez, DO [address] [place] [address] 03/22/2025 11:20 AM EST Office Visit [facility] [address] [place] [address] 3rd Floor, [address] [address] Ivan Manzo MD [address] [place] [address] documented as of this encounter Visit Diagnoses Not on filedocumented in this encounter Care Teams Game And Fish Protector Relationship Specialty Start Date End Date Nasir Nevarez DO PCP - General 11/24/16 Nasir Nevarez DO Historical LMR Provider 11/24/16 documented as of this encounter Additional Source Comments The information contained in this document represents components of the legal health record. It is not the complete legal health record.[facility]
--- OUTSIDE RECORDS SUMMARY | 2024-12-21 11:29 | XMS_ITS | Encounter Summary ---
Author Organization [facility] [place], Address [address] [place] [address] Phone Care Team Providers Care Global Creative Chairman Name Role Phone Nasir Nevarez DO Primary Care Provider [phone] Encounter Details Date Type Department Care Team (Late Contact Info) Description 09/29/2022 Documentation Only [facility] Christopher [address] [place] [address] Mohit Kennedy MD [address] [place] [address] 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 [address] documented as of this encounter Visit Diagnoses Not on filedocumented in this encounter Care Teams Global Creative Chairman Relationship Specialty Start Date End Date Nasir Nevarez DO 6 [place] [address] PCP - General Internal Medicine 08/06/20 documented as of this encounter
--- OUTSIDE RECORDS SUMMARY | 2024-12-21 11:29 | XMS_ITS | Encounter Summary ---
Author Organization [facility] Address [address] [place] [address] Phone Care Team Providers Care Center Receptionist Name Role Phone Nasir Nevarez DO Primary Care Provider [phone] Encounter Details Date Type Department Care Team (Late Contact Info) Description 10/07/2023 Documentation Only [facility] [address] [place] [address] Roberta Bull [address] [place] [address] Social History Tobacco Use Types Packs/Day [...] Visit [facility] [address] Abdiriz[address] [place] [address] Mohit Kennedy MD [address] [facility] [place] [address] documented as of this encounter Visit Diagnoses Not on filedocumented in this encounter Care Teams Center Receptionist Relationship Specialty Start Date End Date Nasir Nevarez DO 6 [place] [address] PCP - General Internal Medicine 08/06/20 documented as of this encounter
--- OUTSIDE RECORDS SUMMARY | 2024-12-21 11:29 | XMS_ITS | Encounter Summary ---
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 [address] documented as of this encounter Visit Diagnoses Not on filedocumented in this encounter Care Teams Glazier Metal Furniture Relationship Specialty Start Date End Date Nasir Nevarez DO [address] [facility] [place] [address] PCP - General Internal Medicine 08/06/20 documented as of this encounter
--- OUTSIDE RECORDS SUMMARY | 2024-12-21 11:29 | XMS_ITS | Clinical Summary ---
Author Organization [facility] Address [address] [place] [address] Phone Care Team Providers Care Ct Scan Tech Name Role Phone MichGabrielle ramirez Ze GARZA Unavailable Gabrielle Sharp DO Primary Care Provider [phone] Allergies Active Allergy Reactions Criticality Noted Date Comments Colchicine Diarrhea,Nausea and/or Vomiting Low 07/10 Prednisone Flushing Low 09/29/2019 Medications cholecalciferol, vitamin D3, (VITAMIN D3 ORAL) Take 1,000 Units by mouth daily. Active allopurinol (ZYLOPRIM) 100 MG tablet Take 100 mg by mouth daily. Active omeprazole (PRILOSEC) 20 MG capsule Take 20 mg by mouth daily. Active ONETOUCH DELICA PLUS LANCET 33 gauge Misc 03/06/2022 Active ONETOUCH VERIO Strp strips 04/09/2022 Active oxyBUTYnin (DITROPAN-XL) 10 MG 24 hr tablet 25 mg daily. 11/10/2022 Active amiodarone (PACERONE) 100 MG tabletIndications :Paroxysmal atrial fibrillation TAKE 1 TABLET DAILY 90 tablet 3 02/08/2024 Active furosemide (LASIX) 40 MG tabletIndications :Essential hypertension Take 1 tablet (40 mg total) by mouth every other day. 45 tablet 3 02/08/2024 Active ELIQUIS 5 mg tabletIndications :Atrial fibrillation, unspecified type TAKE 1 TABLET BY MOUTH TWICE A DAY 180 tablet 3 06/20/2024 Active Active Problems Problem Noted Date Diagnosed Date Hip strain, left, initial encounter 10/03/2023 Asymptomatic bilateral carotid artery stenosis 0 08/25/2022 Assessment & Plan (09/23/2022 1:28 PM EDT): Mild ROYCE as described above on ultrasound in February,. Her lipids are under good control with an LDL of 63. Will repeat carotid duplex prior to next follow up. Assessment & Plan (08/25/2022 11:26 AM EDT): Mild ROYCE as described above on ultrasound in February,. Her lipids are under good control with an LDL of 63. Will repeat carotid duplex prior to next follow up. Onychomycosis 03/15/2020 PAD (peripheral artery disease) 03/15/2020 Assessment & Plan (04/12/2021 4:14 PM EST): Denies symptoms. Continue to monitor and follow-up. History of cardioversion 03/14/2020 On amiodarone therapy 03/14/2020 Gallstone pancreatitis 01/11/2020 Overview (01/27/2020): Sphincterotomy performed. Bleeding at site controlled after MTP Assessment & Plan (01/18/2020 6:58 PM EST): - seems resolved, advancing to low fat full liquid diet, cont ppi. Lower extremity edema 08/05/2019 Assessment & Plan (04/12/2021 4:15 PM EST): No lower extremity edema today on physical exam. Patient tells me that this has resolved and she has had no recurrent issues with her lower extremity edema. Assessment & Plan (08/05/2019 3:43 PM EDT): We have advised the patient to continue on a low-sodium diet, continue with lower extremity elevation as much as she can at home and to wear compression stockings. She did not want a prescription strength compression stocking at this time as she has just ordered some online. She was advised to let us know if she would like these in the future. We are also going to discontinue her diltiazem in an attempt to help decrease her lower extremity swelling as her Lasix has been discontinued due to gout. Gastroesophageal reflux disease without esophagi tis 12/23/2017 Paroxysmal atrial fibrillation 08/25/2017 Assessment & Plan (09/23/2022 1:28 PM EDT): Denies symptomatic recurrence on amiodarone. Had liver and thyroid labs earlier this year- all WNL. No bleeding issues on Eliquis. Continue without change. Assessment & Plan (08/25/2022 11:22 AM EDT): Denies symptomatic recurrence on amiodarone. Had liver and thyroid labs earlier this year- all WNL. No bleeding issues on Eliquis. Continue without change. Assessment & Plan (04/12/2021 4:13 PM EST): Denies symptoms. Continue on current regimen without change. Patient denies any bleeding issues on Eliquis. Continue to monitor and follow-up as needed. Assessment & Plan (01/18/2020 6:58 PM EST): Went back into atrial fibrillation and Dr. Creda started amiodarone load and followed by oral on discharge Assessment & Plan (08/05/2019 3:39 PM EDT): The patient denies any symptoms of palpitations, syncope or chest pain. She is rate controlled on diltiazem and metoprolol and is anticoagulated on Eliquis. She was given 3 weeks of Eliquis 5 mg samples in the office today as she said that this medication is extremely expensive. At this time, we are going to discontinue her diltiazem and increase her metoprolol succinate from 50 mg to 100 mg daily. We are going to trial this medication adjustment in an attempt to decrease her lower extremity swelling which we believe could be partially due to the diltiazem. She was advised to follow-up in [address] Bhatti, but to call sooner if she feels that her palpitations or A. fib symptoms are not well controlled on this new regimen. Assessment & Plan (08/25/2017 6:06 PM EDT): - New diagnosis. This was found when she was being hooked up for a Holter monitor as ordered by her PCP for palpitations. She reports that she has had a recent TSH completed. - She was then sent to the ED from [facility] cardiology office for further workup. She has been started on metoprolol 50 mg daily, and Xarelto 20 mg daily. Per consultation note it was also recommended that she be started on diltiazem but this was not completed. - She did have an additional episode of atrial fibrillation with RVR on 08/21/17 after eating a large crystal grinder. She feels that it was due to eating this large meal, and she is eating smaller portions at this time. -START diltiazem 120 mg daily. It is noted that there is an interaction with her current statin, therefore her statin will be changed to rosuvastatin 10 mg. STOP lovastatin 40 mg daily; START rosuvastatin 10 mg daily - She has no known history of CAD, CVA, TIA. She is currently on aspirin and has been on for years. Since she is now on Xarelto, she can STOP aspirin 81 mg daily. - She has not had an echocardiogram completed, and this is recommended to be completed at follow-up. She will have one prior to her next visit. -She was educated on red flags and is aware of when to call this office. As noted above she has issues with her Xarelto, and we have provided her with samples in the meantime. If necessary she can be changed to a another DOAC due to insurance reasons. She is aware of this. Type 2 diabetes mellitus wit h diabetic polyneuropathy, without long-term current use of insulin 08/10/2017 Assessment & Plan (01/15/2020 5:28 PM EST): - blood sugars improved today cont basal bolus insulin Assessment & Plan (08/05/2019 3:20 PM EDT): The patient does not currently take any oral medications for her diabetes and is controlled with diet and exercise. She states that her A1c and lipid panel is managed by her PCP. She will continue rosuvastatin 10 mg. Assessment & Plan (08/25/2017 6:05 PM EDT): - Diet controlled DM 2. She follows every 3 months with her PCP office. Updated lipid panel will be requested from PCP office. She reports that this was obtained recently. Due to history of DM 2, goal LDL less than 70. - She will be starting on rosuvastatin 10 mg due to interaction with lovastatin and Cardizem. Assessment & Plan (08/10/2017 2:05 PM EDT): Consistent carbohydrate diet -Patient is on no medications as an outpatient for this Essential hypertension 08/10/2017 Assessment & Plan (09/23/2022 1:29 PM EDT): Her home blood pressure cuff is giving falsely elevated readings, BP in office today 118/70 compared to a systolic reading of around 180 using her home cuff. She plans to purchase a new one. Will hold off on starting any antihypertensives for now. Assessment & Plan (08/25/2022 11:23 AM EDT): She is not currently on any antihypertensives. Her blood pressure in office today is under reasonable control at 136/60. At home, she's getting values a lot higher (but is using a wrist BP cuff). Will plan to have her come back in 2-3 weeks with her home BP cuff so we can see how accurate this is. If proves to be accurate and she's actually persistently hypertensive, will discuss starting an antihypertensive at that time. Assessment & Plan (04/12/2021 4:14 PM EST): Patient is not currently on any antihypertensive medication. Her options are somewhat limited given her comorbidities and her prior experience with metoprolol. We will start spironolactone 25 mg daily, BMP in 2 weeks, and see her back in 3 months. Assessment & Plan (01/15/2020 5:29 PM EST): continue with her lisinopril and metoprolol] - above goal, stopping IVF may help cont to monitor Assessment & Plan (08/05/2019 3:35 PM EDT): In the office today, her blood pressure was very well controlled at 120/62. Assessment & Plan (08/25/2017 6:04 PM EDT): - Blood pressure controlled in office today. Continue on current medical regimen. She is also recommended to work on diet and exercise. She indicates understanding. - Updated BMP to be obtained from PCP office. - She will follow-up in this office in about 2-3 months. Assessment & Plan (08/10/2017 2:06 PM EDT): Continue outpatient medical regimen Right carpal tunnel syndrome Resolved Problems Problem Noted Date Diagnosed Date Resolved Date GI bleed 01/16/2020 01/19/2020 Hypovolemic shock 01/16/2020 01/19/2020 Atrial fibrillation with RVR 08/10/2017 08/10/2017 Assessment & Plan (08/10/2017 2:05 PM EDT): Patient came to the emergency room initially appeared to be in flutter and after being given Cardizem converted to sinus rhythm and then back to what appears to be atrial fibrillation -Cardizem drip -Continue Toprol 25 a day -Echo pending -Serial troponins -Cardiology consult pending -Lovenox 1 made per kg twice a day Cholangitis 01/19/2020 Assessment & Plan (01/18/2020 6:59 PM EST): No further fever. Converted to Augmentin today and will discharge on it until 1211 Bacteremia 01/19/2020 Polymicrobial bacterial infection 01/19/2020 Encounters Date Type Department Care Team Description 10/12/2024 10:58 AM EDT - 10/12/2024 11:59 PM EDT Hospital Encounter [facility] [address] [address] Mohit Kennedy MD Discharge Disposition: Home or Self Care 10/12/2024 Transcribe Orders [facility] [address] [address] Mohit Kennedy MD Vitamin D deficiency, unspecified (Primary Dx); Type 2 diabetes mellitus with other specified complication, unspecified whether prison insulin use from Last 3 Months Immunizations Immunization Administration Dates Next Due COVID-19 (Pre-12/01) Pfizer Vaccine, mRNA, PF 11/24/2020,05/19/2020,04/28/2020 INFLUENZA, SPLIT VIRUS, TRIVALENT PF 10/18/2019 Influenza High-Dose Quadriva lent Preservative Free IM 11/18/2022 Influenza High-Dose Trivalen t Preservative Free IM 10/22/2018,12/10/2015 Influenza Quadrivalent Adjuv anted Preservative Free IM 03/06/2021 Influenza Quadrivalent w/ Preservative IM 2021,10/22/2018,11/07/2017 Influenza Trivalent Adjuvant ed Preservative free IM 11/07/2017,11/21/2016 Influenza, Unspecified Formulation 11/29/2009 Pneumococcal conjugate PCV13 11/21/2016 Pneumococcal polysaccharide PPSV23 02/15/2018, Zoster live 08/16/2018,11/10/2011 Zoster recombinant 10/22/2018,08/16/2018 Zoster unspecified formulation 10/22/2018 Family History Medical History Relation Comments Breast cancer Mother Relation Status Comments Father Mother Social History Tobacco Use Types Packs/Day Years Used Date Smoking Tobacco: Former Cigarettes 0.5 25 0 02/09/1961 - 02/09/1986 Smokeless Tobacco: Never Tobacco Cessation:Counseling Given: Not Answered Alcohol Use Standard Drinks/Week Comments Not Currently [...] Orientation Straight 08/10/2017 9: 57 AM EDT Last Filed Vital Signs Vital Sign Reading Time Taken Comments Blood Pressure 150/70 09/19/2024 10:43 AM EDT Pulse 76 09/19/2024 10:43 AM EDT Temperature 36.7 C (98 F) 05/17/2024 12:12 PM EDT Respiratory Rate 18 05/17/2024 12:12 PM EDT Oxygen Saturation 96% 09/19/2024 10:43 AM EDT Inhaled Oxygen Concentration - - Weight 73.5 kg (162 lb) 09/19/2024 10:43 AM EDT Height 162.6 cm (5' 4.02 ) 09/19/2024 10:43 AM E DT Body Mass Index 27.79 09/19/2024 10:43 AM EDT Plan of Treatment Upcoming Encounters Date Type Department Care Team (Late st Contact Info) Description 08/08/2024 Procedure Pass [facility], Mammography[address] [address] 09/19/2024 Procedure Pass [facility] [address] [place] [address] 01/26/2025 11:45 AM EST Appointment [address] [address] Gabrielle Sharp DO [address] [facility] [place] [address] [place] [address] [email or web address] 02/20/2025 12:45 PM EST Appointment Echo [facility] [address] [place] [address] Ivan Manzo MD [address] [facility], [address] [place] [address] [email or web address] 03/17/2025 11:00 AM EST Appointment [facility], Mammography- [facility] [address] [place] [address] Gabrielle Sharp DO [address] [facility] [place] [address] [place] [address] [email or web address] 03/22/2025 11:20 AM EST Office Visit [facility] [address] [facility] [address], [address] [place] [address] Ivan Manzo MD [address] [facility], [address] [place] [address] [email or web address] Health Maintenance Due Date Last Done Comments Adult Td,Tdap Booster 1945 DEPRESSION SCREENING 1955 COLOGUARD 06/18/1988 FIT TEST 06/18/1988 FOBT 06/18/1988 SIGMOIDOSCOPY 06/18/1988 VIRTUAL COLONOSCOPY 06/18/1988 DIABETIC EYE EXAM 08/10/2017 URINE MICROALBUMIN/CREATININE RATIO 08/10/2017 RSV VACCINE (1 - 1-dose 75+ series) 06/18/2018 LIPID PANEL 05/03/2021 05/03/2020, 05/22/2010 PAP SMEAR 05/01/2022 05/01/2017, 04/10, 01/23/2015 INFLUENZA VACCINE (#1) 2024 , 11/18/2022, 03/06/2021, Additional history exists COVID-19 VACCINE ( season) 2024 12/04/2023, 11/24/2020, 05/19/2020, Additional history exists MAMMOGRAM 10/25/2024 10/26/2023, 09/11, 10/07/2021, Additional history exists TSH LEVEL 02/18/2025 02/19/2024, 0210/2023, 02/18/2022, Additional history exists BLOOD PRESSURE 03/22/2025 09/19/2024 HEMOGLOBIN A1C 04/11/2025 10/12/2024, 08/0 09/2024, 10/06/2023, Additional history exists ALT LEVEL (ALANINE AMINOTRANSFERASE) 09/16/2025 09/16/2024, 03/20/2023, 02/18/2022, Additional history exists CREATININE LEVEL 10/12/2025 10/12/2024, 09/2024, 10/06/2023, Additional history exists COLONOSCOPY 10/23/2027 10/22/2022, 10/23/2017 COLORECTAL CANCER SCREENING 10/23/2027 OSTEOPOROSIS SCREENING INITIAL (ONE-TIME) Completed 11/10/2017 PNEUMOCOCCAL VACCINES (50+ years) Completed 02/15/2018, 11/21/2016, 11/14/2012 ZOSTER VACCINES Completed 10/22/2018, 10/10, 08/16/2018, Additional history exists HEPATITIS A VACCINES Aged Out No long er eligible based on patient's age to complete this topic HIB VACCINES Aged Out No longer eligi ble based on patient's age to complete this topic IPV VACCINES Aged Out No longer eligi ble based on patient's age to complete this topic MENINGOCOCCAL VACCINES (ACWY) Aged Out No longer eligible based on patient's age to complete this topic MENINGOCOCCAL VACCINES (B) Aged Out N o longer eligible based on patient's age to complete this topic Medical Devices Implanted Type [employer] Device Identifier Shelf Expiration Date Model / Serial / Lot Lens Lens Procedures Procedure Name Priority Date/Time Associated Diagnosis Comments TOTAL PROTEIN CREATININE RATIO, RANDOM URINE Routine 10/12/2024 11:01 AM EDT Vitamin D deficiency, unspecified Type 2 diabetes mellitus with other specified complication, unspecified whether long term care social worker insulin use CBC AND DIFFERENTIAL Routine 10/12/2024 11:01 AM EDT Vitamin D deficiency, unspecified Type 2 diabetes mellitus with other specified complication, unspecified whether long term care social worker insulin use RENAL PANEL Routine 10/12/2024 11:01 AM EDT Vitamin D deficiency, unspecified Type 2 diabetes mellitus with other specified complication, unspecified whether prison insulin use URIC ACID Routine 10/12/2024 11:01 AM EDT Vitamin D deficiency, unspecified Type 2 diabetes mellitus with other specified complication, unspecified whether long term care social worker insulin use 25-OH VITAMIN D Routine 10/12/2024 11:01 AM EDT Vitamin D deficiency, unspecified Type 2 diabetes mellitus with other specified complication, unspecified whether long term care social worker insulin use IRON AND IRON BINDING CAPACITY Routine 10/12/2024 11:01 AM EDT Vitamin D deficiency, unspecified Type 2 diabetes mellitus with other specified complication, unspecified whether prison insulin use FERRITIN Routine 10/12/2024 11:01 AM EDT Vitamin D deficiency, unspecified Type 2 diabetes mellitus with other specified complication, unspecified whether long term care social worker insulin use HEMOGLOBIN A1C Routine 10/12/2024 11:01 AM EDT Vitamin D deficiency, unspecified Type 2 diabetes mellitus with other specified complication, unspecified whether prison insulin use COMPREHENSIVE METABOLIC PANEL (CMP) Routine 09/16/2024 8:22 AM EDT Encounter for screening for osteoporosis Type 2 diabetes mellitus with other specified complication, unspecified whether long term care social worker insulin use General medical exam TSH WITH REFLEX Routine 02/19/2024 10:21 AM EST Paroxysmal atrial fibrillation BI MAMMOGRAM SCREENING WITH TOMOSYNTHESIS WITH CAD (BILATERAL) Routine 10/26/2023 11:51 AM EDT Breast screening ENDOSCOPY, COLON 10/22/2022 8:30 AM EDT LIPID PANEL Routine 05/03/2020 12:13 PM EDT Dyslipidemia BD DXA AXIAL (SPINE) WITH HIP Routine 11/10/2017 12:48 PM EDT Encounter for screening for osteoporosis PAP TEST Routine 05/01/2017 12:00 AM EDT from Last 3 Months or Most Recently Relevant to Health Maintenance Results * TOTAL PROTEIN CREATININE RATIO, RANDOM URINE (10/12/2024 11:01 AM EDT) URINE TOTAL PROTEIN <4.0 mg/dL [facility] URINE CREATININE 25 mg/dL [facility] URINE TP CRE RATIO NOT CALCULATED 0 - 0.19 [facility] Urine (Urine) 10/12/2024 11: 01 AM EDT 10/12/2024 11:04 AM EDT Mohit Kennedy MD LAB URINE ORDERABLES Final Resul t Performing Organization Address [facility]/ZIP Co de Phone Number [address] [address] * (ABNORMAL) Renal panel (10/12/2024 11:01 AM EDT) SODIUM 140 133 - 146 mmol/L [facility] POTASSIUM 4.9 3.3 - 5.1 mmol/L [facility] CHLORIDE 104 96 - 108 mmol/L [facility] CO2 25 21 - 35 mmol/L [facility] GLUCOSE 132(H) 70 - 99 mg/dL [facility] BUN 33(H) 6 - 19 mg/dL [facility] CREATININE 1.20 0.5 - 1.5 mg/dL [facility] CALCIUM 10.2 8.4 - 10.3 mg/dL [facility] PHOSPHORUS 3.2 2.7 - 4.5 mg/dL [facility] ALBUMIN 4.3 3.9 - 4.8 g/dL [facility] EGFR 45(L) >59 mL/min/1.7 3m2 [facility] Comment:Estimated glomerular filtration rate calculated using the CKD-EPI refit equation. ANION GAP 16 10 - 20 mmol/L [facility] Blood 10/12/2024 11:0 1 AM EDT 10/12/2024 11:04 AM EDT us Mohit Kennedy MD LAB BLOOD BKR ORDERABLES Final R esult Performing Organization Address City/[facility]/ZIP Co de Phone Number [address] [address] * Iron and iron binding capacity (10/12/2024 11:01 AM EDT) IRON 115 30 - 160 ug/dL [facility] IRON BINDING CAPACITY 368 228 - 428 ug/dL [facility] TRANSFERRIN SATURAT. 31 15 - 50 % [facility] Blood 10/12/2024 11:0 1 AM EDT 10/12/2024 11:04 AM EDT Mohit Kennedy MD LAB BLOOD BKR ORDERABLES Final R esult Performing Organization Address City/[facility]/ZIP Co de Phone Number [address] [address] * 25-OH vitamin D (10/12/2024 11:01 AM EDT) Pathologist [facility] 25 OH VIT D (TOTAL) 45 30 - 60 ng/mL [facility] Blood 10/12/2024 11:0 1 AM EDT 10/12/2024 11:04 AM EDT us Mohit Kennedy MD LAB BLOOD BKR ORDERABLES Final R esult Performing Organization Address City/[facility]/ZIP Co de Phone Number [address] [address] * (ABNORMAL) CBC and differential (10/12/2024 11:01 AM EDT) Pathologist [facility] WBC 5.63 4.00 - 11.00 K/uL [facility] RBC 4.98 4.00 - 5.20 M/uL [facility] HGB 15.2 12.0 - 16.0 g/dL [facility] HCT 46.8(H) 36.0 - 46.0 % [facility] PLT 206 150 - 450 K/uL [facility] MCV 94.0 80.0 - 100.0 fL [facility] MCH 30.5 27.0 - 31.0 pg [facility] MCHC 32.5 32.0 - 36.0 g/dL [facility] RDW 13.4 11.5 - 14.5 % [facility] MPV 10.7 8.4 - 12.0 fL [facility] NRBC 0.00 0.00 /100 WBCs [facility] ABSOLUTE NRBC 0.00 0.00 K/uL [facility] DIFF METHOD Auto [facility] NEUTS 65.4 48.0 - 76.0 % [facility] LYMPHS 21.7 18.0 - 41.0 % [facility] MONOS 9.4 4.0 - 11.0 % [facility] EOS 2.8 0.0 - 5.0 % [facility] BASOS 0.5 0.0 - 1.5 % [facility] Granulocytes, immature (%) 0.2 0.0 - 0.9 % [facility] ABSOLUTE NEUTS 3.68 1.92 - 7.60 K/uL [facility] ABSOLUTE LYMPHS 1.22 0.72 - 4.10 K/uL [facility] ABSOLUTE MONOS 0.53 0.16 - 1.10 K/uL [facility] ABSOLUTE EOS 0.16 0.00 - 0.50 K/uL [facility] ABSOLUTE BASOS 0.03 0.00 - 0.15 K/uL [facility] Granulocytes, immature 0.01 0.00 - 0.09 K/uL [facility] Blood 10/12/2024 11:0 1 AM EDT 10/12/2024 11:04 AM EDT Mohit Kennedy MD LAB BLOOD BKR ORDERABLES Final R esult Performing Organization Address City/State[facility] Co de Phone Number [address] [address] * Uric acid (10/12/2024 11:01 AM EDT) URIC ACID 6.4 2.4 - 7.0 mg/dL [facility] Blood 10/12/2024 11:0 1 AM EDT 10/12/2024 11:04 AM EDT Mohit Kennedy MD LAB BLOOD BKR ORDERABLES Final R esult Performing Organization Address City/[facility]/ZIP Co de Phone Number [address] [address] * (ABNORMAL) Hemoglobin A1c (10/12/2024 11:01 AM EDT) [facility] HEMOGLOBIN A1C 6.2(H) 4.3 - 5.8 % [facility] Blood 10/12/2024 11:0 1 AM EDT 10/12/2024 11:03 AM EDT us Mohit Kennedy MD LAB BLOOD BKR ORDERABLES Final R esult Performing Organization Address [facility]/ZIP Co de Phone Number [address] [address] * Ferritin (10/12/2024 11:01 AM EDT) [facility] FERRITIN 95 13 - 150 ug/L [facility] Blood 10/12/2024 11:0 1 AM EDT 10/12/2024 11:04 AM EDT us Mohit Kennedy MD LAB BLOOD BKR ORDERABLES Final R [facility] Performing Organization Address [facility] Co de Phone Number [address] [address] * (ABNORMAL) Comprehensive metabolic panel (09/16/2024 8:22 AM EDT) Pathologist [facility] SODIUM 143 133 - 146 mmol/L [facility] POTASSIUM 4.7 3.3 - 5.1 mmol/L [facility] CHLORIDE 105 96 - 108 mmol/L [facility] CO2 27 21 - 35 mmol/L [facility] BUN 26(H) 6 - 19 mg/dL [facility] CREATININE 1.20 0.5 - 1.5 mg/dL [facility] GLUCOSE 143(H) 70 - 99 mg/dL [facility] ALBUMIN 4.0 3.9 - 4.8 g/dL [facility] TOTAL PROTEIN 6.9 6.5 - 8.0 g/dL [facility] CALCIUM 9.7 8.4 - 10.3 mg/dL [facility] ALKALINE PHOSPHATASE 93 39 - 117 U/L [facility] TOTAL BILIRUBIN 0.7 0.0 - 1.2 mg/dL [facility] AST 20 0 - 37 U/L [facility] ALT 11 0 - 40 U/L [facility] GLOBULIN 2.9 1 - 4.8 g/dL [facility] EGFR 45(L) >59 mL/min/1.7 3m2 [facility] Comment:Estimated glomerular filtration rate calculated using the CKD-EPI refit equation. ANION GAP 16 10 - 20 mmol/L [facility] Blood 09/16/2024 8:22 AM EDT 09/16/2024 8:28 AM EDT us Gabrielle Sharp DO LAB BLOOD BKR ORDERABLES Final R esult Performing Organization Address City/[facility]/ZIP Co de Phone Number [address] [address] * (ABNORMAL) TSH with reflex (02/19/2024 10:21 AM EST) TSH 4.45(H) 0.27 - 4.20 uIU/mL [facility] Blood 02/19/2024 10:2 1 AM EST 02/19/2024 10:23 AM EST us Suly Skinner PA-C LAB BLOOD BKR ORDERABLE S Final Result Performing Organization Address City/[facility]/ZIP Co de Phone Number [address] [address] * BI MAMMOGRAM SCREENING WITH TOMOSYNTHESIS WITH [...] be notified of the results and recommendations. us Gabrielle A Bigda DO IMG MG EXAMS Final Result * ENDOSCOPY, COLON (10/22/2022 8:30 AM EDT) Narrative Transcriptions Yamilet Liriano MD - 10/22/2022 8:30 AM EDT [facility] Patient Name: Audrey Gallardoenry Attending MD:: YAMILET LIRIANO MD, Procedure Date: 10/22/2022 8:30 AM Date of : 1945 Age: 77 Admit Type: Outpatient Gender: Female Room: [facility] 04 Referring MD: GABRIELLE SHARP DO Exam Type: Colonoscopy Indications: Surveillance: Personal history of adenomatouspolyps on last colonoscopy > 5 years ago, Lastcolonoscopy: October 2017 Medications: Monitored Anesthesia Care Procedure: Informed consent was obtained from the patientafter discussion of the indications, limitations, alternatives, benefits, and risks of the procedure. Risks specifically discussed include but are not limited to medication reactions, missed lesions, bleeding, perforation, or the need for emergent surgery. Throughout the procedure, the patient's blood pressure, pulse, end-tidal CO2, and oxygensaturations were monitored continuously. The Olympus pediatric variable colonoscopePCF-[id number] #4 was introduced through the anus and advanced tothe cecum, identified by the appendiceal orifice, ileocecal valve and palpation. The colonoscopy was performed with moderate difficulty due to multiple diverticula in the colon, significant looping and a tortuous colon. Successful completion of theprocedure was aided by applying abdominal pressure. Thepatient tolerated the procedure fairly well. The quality of the bowel preparation was good. The ileocecalvalve, appendiceal orifice, and rectum werephotographed. Complications: No immediate complications. Estimated blood loss: Minimal. Findings: The perianal and digital rectal examinations were normal. Pertinent negatives include normalsphincter tone. Two sessile polyps were found at 45 cm proximal tothe anus and at 70 cm proximal to the anus,respectively. The polyps were 4 to 6 mm in size. These polypswere removed with a cold snare. Resection and retrieval were complete. Estimated blood loss was minimal. Scattered small and large-mouthed diverticula were found in the sigmoid colon, descending colon and splenic flexure. Retroflexion in the right colon was performed. The exam was otherwise without abnormality ondirect and retroflexion views. Impression: - Two 4 to 6 mm polyps at 45 cm proximal to theanus and at 70 cm proximal to the anus, removed with acold snare. Resected and retrieved. - Diverticulosis in the sigmoid colon, in the descending colon and at the splenic flexure. - The examination was otherwise normal on directand retroflexion views. Recommendation: - I will send results of your biopsy to you andyour referring physician or provider. If you do notreceive notification within 3 weeks, please call ouroffice. - Resume Eliquis (apixaban) at prior dose today. - Repeat colonoscopy in 5 years for surveillancebased on pathology results. YAMILET LIRIANO MD 10/22/2022 9:03:51 AM This report has been signed electronically. Number of Addenda: 0 Note Initiated On: 10/22/2022 8:30 AM Procedure Code(s): --- Professional --- 14922, Colonoscopy, flexible; with removal of tumor(s), polyp(s), or other lesion(s) by snare technique --- Technical --- 94459, Colonoscopy, flexible; with removal of tumor(s), polyp(s), or other lesion(s) by snare technique Diagnosis Code(s): --- Professional --- Z86.010, Personal history of colonic polyps D12.6, Benign neoplasm of colon, unspecified K57.30, Diverticulosis of large intestine without perforation or abscess without bleeding --- Technical --- Z86.010, Personal history of colonic polyps D12.6, Benign neoplasm of colon, unspecified K57.30, Diverticulosis of large intestine without perforation or abscess without bleeding CPT copyright 2021 [employer]. All rights reserved. The codes documented in this report are preliminary and upon rod placer reviewmay be revised to meet current compliance requirements. Procedure Date: 10/22/2022 8:30:08 AM [address] [place] [address] us Gabrielle A Bigda DO GI PROCEDURE ORDERABLES Final Re sult * (ABNORMAL) Lipid panel (05/03/2020 12:13 PM EDT) HDL 41 mg/dL [facility] Comment: Interpretation <40 mg/dL: Low HDL cholesterol (major risk factor for CHD) Greater than or equal to 60 mg/dL: High HDL cholesterol ( negative risk factor for CHD) HDL - cholesterol is affected by a number of factors, e.g. smoking, excerise, hormones, sex and age. CHOLESTEROL 144 0 - 240 mg/dL [facility] TRIGLYCERIDES 199(H) 30 - 160 mg/dL [facility] LDL 63 50 - 129 mg/dL [facility] Comment: LDL levels in terms of risk for coronary heart disease: <100 mg/dL: Optimal 100-129 mg/dL: Near or above optimal 130-159 mg/dL: Borderline high 160-189 mg/dL: High >190 mg/dL: Very High CARDIAC RISK RATIO 3.5 3.3 - 4.4 C [facility] Blood 05/03/2020 12:1 3 PM EDT 05/03/2020 12:21 PM EDT us Ivan Manzo MD LAB BLOOD BKR ORDERABLES Caitlyn buckner Result Performing Organization Address City/[facility] Co de Phone Number [address] [address] * BD DXA AXIAL (SPINE) WITH HIP [...] screening, height loss POS - [id number] us Gabrielle A Bigda DO IMG BD BONE DENSITY DEXA Final R esult * Pap Smear (05/01/2017 12:00 AM EDT) 05/01/2017 05/02/2017 3:1 3 PM EDT Narrative SEE NARRATIVE - 05/07/2017 3:23 PM EDT [address] [address] Podiatric Technician: Megha Hutchison MD EGG SORTER Cytology Report FINAL DIAGNOSIS A. PAP SMEAR (SUREPATH) C: SPECIMEN ADEQUACY: Satisfactory for evaluation; transformation zone present. INTERPRETATION: NEGATIVE FOR INTRAEPITHELIAL LESION OR MALIGNANCY. Electronically Signed Out By: KATHLEEN Lopez(ASCP) The Pap test is a screening test primarily for squamous cancers and precursors and has associated false-negative and false-positive results. New technologies such as liquid-based preparations may decrease but will not eliminate all false-negative results. Regular sampling and follow-up of unexplained clinical signs and symptoms are recommended to minimize false negative results. CLINICAL HISTORY Date of Last Menstrual Period: N/A Menstrual History: Post Menopausal Bleeding, PM Other Clinical Conditions: Diagnostic Pap SPECIMEN SOURCE A: PAP SMEAR (SUREPATH) C Patient Name: AUDREY ALLRED : 1945 (Age: 71) Sex: F Institution: [facility] Location: [facility] Date of Collection: 05/01/2017 Date of Reported: 05/07/2017 15:23 Results to: Oren Pacheco MD, BS Oren Pacheco MD CYTOLOGY ORDERABLES Final Res ult SEE NARRATIVE from Last 3 Months or Most Recently Relevant to Health Maintenance Insurance [employer] [place] [employer]IC[employer] [address] [place] [address] MED[address] [place] [address] [address] [place] [address] [address] [place] [address] [address] [place] [place] [address] [address] [place] [address] [address] [place] [address] MEDICARE HMO [address] [place] [address] MEDICARE HMO BLUE REPLACEMENT Advance Directives For more information, please contact: [phone] (9AM - 5PM [facility], Thursday-Thursday) Documents on File Type Date Recorded Patient 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 anation Healthcare Proxy 05/08/2022 12:51 PM * Full Code (Latest Code Status on File) Date Activated Date Inactivated Comments 01/11/2020 11:54 PM Question Answer Comments Code Status Confirmed With: Patient * Full Code (Confirmed) Date Activated Date Inactivated Comments 08/10/2017 4:13 PM 08/10/2017 9:44 PM Question Answer Comments Code Status Confirmed With: Patient Care Teams Ct Scan Tech Relationship Specialty Start Date End Date Gabrielle Sharp DO PCP - General 11/24/16 Gabrielle Sharp DO [email or web address] Historical LMR Provider 11/24/16 Additional Source Comments The information contained in this document represents components of the legal health record. It is not the complete legal health record[facility]
[2024-12-21 13:04] LABS: MANUAL DIFF FLAG NO
[2024-12-21 13:16] LABS: Hematocrit 46.4 % (37.0-47.0); Hemoglobin 14.9 g/dl (12.0-16.0); Imm Gran Abs Auto 0.01 X10*3/uL (0.00-0.03); Imm Gran Pct Auto 0.2 % (0.0-0.4); Lymphocytes Absolute Auto 1.0 X10*3/uL (1.2-4.9); Mean Corpuscular HGB Conc 32.1 g/dl (31.0-35.0); Mean Corpuscular Hemoglobin 29.9 pg (27.0-33.0); Mean Corpuscular Volume 93.0 fL (80.0-98.0); NRBC Abs Auto 0.000 X10*3/uL (0.0-0.012); NRBC Pct Auto 0.0 /100WBC (0.0-0.2); Platelet Count 218 X10*3/uL (160-400); Red Blood Count 4.99 X10*6/uL (4.20-5.50); White Blood Count 4.6 X10*3/uL (4.8-10.8)
[2024-12-21 13:35] LABS: Alanine Aminotransferase 18 U/L (0-31); Albumin Level 4.3 g/dL (3.5-5.0); Alkaline Phosphatase 97 U/L (39-117); Anion Gap 13 (12-20); Aspartate Amino Transferase 27 U/L (5-31); Blood Urea Nitrogen 25 mg/dL (9-16); Calcium 10.0 mg/dL (8.4-10.2); Carbon Dioxide 29 mmol/L (22-29); Chloride 108 mmol/L (96-108); Cholesterol 176 mg/dL (<200); Estimated Glomerular Filt Rate 37; HDL Cholesterol 43 mg/dL (>40); Potassium 5.1 mmol/L (3.3-5.1); Sodium 145 mmol/L (135-145); Total Protein 7.2 g/dL (6.5-8.0); Triglycerides 152 mg/dL (<150)
== END 2024-12-21 09:53 | disposition home or self-care (01) ==
LOC: HO.MANLDS 09:52
PROVIDERS: Visit Provider Internal Medicine
DX: E78.00 Pure hypercholesterolemia, unspecified (principal); I10 Essential (primary) hypertension
CPT/HCPCS: 36415; 80053; 80061; 85025